=== PATIENT | male | born 1955 | race Caucasian/White ===

== ENCOUNTER 2016-11-19 13:21 | Emergency (ER) | payer OTHER ==
--- NOTE | ~2016-11-19 | ER ---
PATIENT'S NAME: [facility] AGE: 61 Y [address] ROOM: [place] [address] LOCATION: [facility] ADMIT DATE: 11/19/2016 ER/Outpatient Report DISCHARGE DATE: 11/19/2016 FAMILY PHYSICIAN: Hardeep Ohara MD ATTENDING PHYSICIAN: Marciano Sampson TIME OF ARRIVAL: 1321 hours. TIME OF EVALUATION: 1322 hours. CHIEF COMPLAINT: Chest tightness. HISTORY OF PRESENT ILLNESS: The patient is a 61-year-old male who presents to the emergency department today with a chief complaint of chest tightness. He reports this started 2 days prior to arrival. He reports it is on and off. He denies history of similar symptoms in the past. Denies any shortness of breath. No diaphoresis. No nausea or vomiting. No weakness. Denies any current pain. It is 0/10 in severity. Denies any cough. He reports that it occurred at night. Denies any fevers or chills. Does have some constipation with last bowel movement this morning. Denies any diarrhea. The patient has recently been under quite a bit of stress, he has been undergoing radiation, and has had a brain tumor removed recently. PAST MEDICAL HISTORY: Brain tumor, status post resection, chemo, and radiation, glioblastoma, osteoarthritis, rhinitis, and BPH. PAST SURGICAL HISTORY: 10/19/2016, had the right brain tumor resection. SOCIAL HISTORY: The patient denies any tobacco, alcohol, or illicit drug use. ALLERGIES: CORN, DUST. NO MEDICATION ALLERGIES. MEDICATIONS: Please see list. Sees Dr. Velazquez and Dr. Blas. PATIENT'S NAME: [facility] AGE: 61 Y [address] ROOM: [place] [address] LOCATION: ED ADMIT DATE: 11/19/2016 ER/Outpatient Report DISCHARGE DATE: 11/19/2016 FAMILY PHYSICIAN: Hardeep Ohara MD ATTENDING PHYSICIAN: Marciano Sampson REVIEW OF SYSTEMS: All systems are reviewed by myself are negative with the exception of those discussed in HPI and past medical history. PHYSICAL EXAMINATION: VITAL SIGNS: Weight 107.1 kg, blood pressure 127/67, pulse 88, respiratory rate 16, temperature 99.6, and oxygen saturation 96% on room air. GENERAL: The patient is a 61-year-old male, appears stated age, in no acute distress at this time. HEENT: Head: Normocephalic. Does have evidence of recent trauma to the right-side from craniotomy. Pupils are equal, round, and reactive to light. NECK: Supple. There is no nuchal rigidity. CARDIOVASCULAR: Regular rate and rhythm. No murmurs, rubs, or gallops. LUNGS: Clear to auscultation bilaterally. No wheezes, rales, or rhonchi. ABDOMEN: Soft, nontender, and nondistended. No rebound, rigidity, or guarding. MUSCULOSKELETAL: The patient moves all 4 extremities. A 5/5 muscle strength. SKIN: Warm, dry. There are no rashes or lesions noted. LABS AND X-RAYS: Labs and x-rays are obtained. EKG is obtained, is interpreted by myself, shows sinus rhythm with a rate of 83, normal axis, normal interval. No ST- elevation, ST-depression, or T-wave inversions. Two-view chest x-ray is obtained shows no acute process. CBC is normal except for white blood cell count 12.3. CMP is unremarkable. Calcium is 8.4. LFTs are normal. Cardiac enzymes are normal. D-dimer is normal. PTT is normal, PT is normal, INR is normal. Mag is normal. BNP 209. Two-hour cardiac enzymes are normal. Two- hour EKG shows sinus rhythm with a rate of 77, normal axis, normal interval. No ST-elevation, ST-depression, or T-wave inversions. IMPRESSION: 1. Chest pain, unclear etiology. 2. Glioblastoma, currently undergoing chemo and radiation. 3. Initial visit. EMERGENCY DEPARTMENT COURSE: The patient brought back to the examination room. Seen and evaluated by myself. IV is established. Laboratory analysis and imaging are obtained as described above. The patient is not given aspirin due to his recent brain surgery. He is given Tylenol 1 g p.o. Laboratory analysis and imaging are obtained as described above. I did discuss the results with the patient. I did recommend 2-hour cardiac enzymes, he is agreeable, these are normal as well. The patient has been having symptoms for 2-3 days. His cardiac enzymes are normal x2. I do feel he is safe for further outpatient evaluation at this time. I have asked he follows up with Cardiology. He is to call for an PATIENT'S NAME: ELIAS MACKAY [facility] AGE: 61 Y [address] ROOM: [place], [place] [address] LOCATION: [facility] ADMIT DATE: 11/19/2016 ER/Outpatient Report DISCHARGE DATE: 11/19/2016 FAMILY PHYSICIAN: Hardeep Ohara MD ATTENDING PHYSICIAN: Marciano Sampson appointment as well as primary care doctor in 2 days. I have discussed return to care instructions including any worsening chest pain, shortness of breath, or any other concerns to return to emergency department as soon as possible. The patient is agreeable. I have discussed results with the patient's sister- in-law who is at bedside as well. She is agreeable. DISPOSITION: The patient is discharged home in good condition. DO JEREMIAS LYNN/chinyere /[id number] d: 11/19/16 2344 t: 11/20/16 0633, OUTPATIENT REPORT
[~2016-11-19 13:21] MED LIST: ALEVE220 MG PO; AMBIEN5 MG PO; ASPIRIN325 MG PO; BENADRYL 2% CREAM2 % TOP; CALCIUM 600 +1 EAC7 PO; CALCIUM-MAGNES1 EAC5 PO; COENZYME Q10200 MG PO; DECADRON4 MG PO; FLOMAX0.4 MG PO; LIPOZENE PO; MIRALAX17 GM PO; NORCO 5-325 TA1 EACH PO; PHENERGAN WITH480 ML PO; PROTONIX40 MG PO; THERAGRAN-M1 TAB PO; TYLENOL325 MG PO; VITAMIN E400 UNI2 PO; [UNRECOGNIZED DRUG - OTHER] PO
[2016-11-19 13:40] LABS: BASOPHIL % 0.3 %; EOSINOPHIL % 0.1 %; HEMATOCRIT 44.4 % (37.0-53.0); HEMOGLOBIN 14.8 g/dL (12.0-17.0); IMMATURE GRANULOCYTE # 0.4 K/uL (0.0-0.3); IMMATURE GRANULOCYTE % 3.3 %; LYMPHOCYTE % 8.2 %; MCH 30.3 pg (27.0-34.0); MCHC 33.3 gm/dL (32.0-36.5); MCV 90.8 fl (83.0-98.0); MONOCYTE # 0.8 K/uL (0.0-1.0); MONOCYTE % 6.4 %; MPV 8.8 fl (9.4-12.4); NEUTROPHIL % 81.7 %; NRBC % 0.2 /100WBC (0-0.00); PLATELET COUNT 256 K/uL (150-450); RBC 4.89 M/uL (4.00-6.00); RDW-CV 13.4 % (11.9-14.6); WBC 12.3 K/uL (4.0-11.0)
[2016-11-19 13:58] LABS: INR - (THERAPEUTIC) 0.9 (0.9-1.1); PROTIME 9.7 SECONDS (9.6-11.1); PTT 22 SECONDS (25-32)
[2016-11-19 14:01] LABS: ALK PHOS 91 IU/L (33-138); ALT 72 IU/L (12-78); BLOOD UREA NITROGEN 21 mg/dL (6-24); CALCIUM 8.4 mg/dL (8.5-10.5); CHLORIDE 103 mMol/L (96-110); CO2 22 mMol/L (22-32); CPK 59 IU/L (35-332); CREATININE 1.1 mg/dL (0.6-1.3); ESTIMATED GFR (MDRD EQUATION) > 60; SODIUM 138 mMol/L (135-145); TOTAL PROTEIN 6.1 g/dL (6.0-8.4)
[2016-11-19 14:02] LABS: ANION GAP 17.1 (10.0-19.0); AST 22 IU/L (10-40); MAGNESIUM 2.1 mg/dL (1.3-2.6); POTASSIUM 4.1 mMol/L (3.7-5.1); TOTAL BILIRUBIN 0.4 mg/dL (0.0-1.5)
[2016-11-19 16:00] LABS: CPK 45 IU/L (35-332)
== END 2016-11-19 16:25 | disposition disaster alternative care site (69) ==
LOC: GMED 13:21
PROVIDERS: Emergency Medicine
DX: R07.9 Chest pain, unspecified (principal); C71.9 Malignant neoplasm of brain, unspecified; M19.90 Unspecified osteoarthritis, unspecified site; N40.0 Benign prostatic hyperplasia without lower urinary tract symptoms; Z98.890 Other specified postprocedural states; Z91.018 Allergy to other foods; Z91.048 Other nonmedicinal substance allergy status; Z79.899 Other long term (current) drug therapy

== ENCOUNTER → 2016-12-21 | Outpatient (CLI) | payer OTHER ==
[~2016-12-21] MED LIST changes: +ALDACTONE25 MG PO; +NOVOLOG FL100 UNIT/1 SUB-Q; +SENOKOT8.6 MG PO; +TEMODAR PO; +TEMODAR140 MG PO
== END | disposition disaster alternative care site (69) ==
LOC: GDIC 15:14
DX: E11.8 Type 2 diabetes mellitus with unspecified complications (principal)
CPT/HCPCS: G0108

== ENCOUNTER 2016-12-26 12:32 | Inpatient (IN) | payer OTHER ==
[~2016-12-26] VITALS: Ht 172.7 cm; Wt 104.4 kg
--- NOTE | ~2016-12-26 | COMP ---
PATIENT'S NAME: ELIAS MACKAY [facility] AGE: 61 Y [address] ROOM: [place] [address] LOCATION: [facility] ADMIT DATE: 12/26/2016 Oncology Report DISCHARGE DATE: FAMILY PHYSICIAN: Hadreep Ohara MD ATTENDING PHYSICIAN: Pierce Liriano V RADIATION THERAPY SUMMARY DATE OF SERVICE: REFERRING PHYSICIAN: Sanam Velazquez MD DIAGNOSIS: Glioblastoma of the right frontal lobe. Dear Doctor: Mr. Elias Mackay recently finished radiotherapy in our facility. As you recall, this is a 61-year-old white male with a diagnosis of a glioblastoma in the area of the right frontal lobe region. The patient was treated with concomitant chemo radiotherapy. Received Temodar and external beam radiotherapy. He was treated to a dose of 6000 cGy and finished his therapy on 12/21/2016. When seen during the last week of treatment on 12/18, he was doing reasonably well. He was somewhat slow to answer questions and did not move as quickly as he normally did. He was accompanied by his [id number]. He was on a tapering dose of Decadron at that point. PHYSICAL EXAMINATION: VITAL SIGNS: From 12/18 included temperature of 97.4, pulse of 90, a blood pressure of 124/84, and a weight of 106.4 kilos. GENERAL: A well-developed well-nourished, white male. HEAD AND NECK: The patient had a well-healed surgical scar in the right frontal area. An elliptical manner tumor was noted. There was some mild fluctuance noted in this area. The scalp was darkened. No areas of breakdown were noted. Hair loss was noted in the area of the treatment field. HEENT: The oral cavity did not have any mycotic lesions. Tongue protruded midline. EXTREMITIES: The patient did have significant bilateral ankle swelling noted. NEUROLOGIC: The patient had a slow gait which was wide-based. His mental status appeared to be somewhat slowed. He was able to answer questions appropriately. PATIENT'S NAME: ELIAS MACKAY [facility] AGE: 61 Y [address] ROOM: [place] [address] LOCATION: [facility] ADMIT DATE: 12/26/2016 Oncology Report DISCHARGE DATE: FAMILY PHYSICIAN: Hardeep Ohara MD ATTENDING PHYSICIAN: Pierce Liriano V SUMMARY OF THERAPY: The patient was treated to the area of a partial brain field with appropriate margins for a dose of 4600 cGy in 200 cGy fractions using 6 mV photons with the VMAT IMRT technique. The patient treated between 11/12/2016 and 12/12/2016 for 23 fractions over 30 elapsed treatment days. Thereafter, had a cone-down to the area of the primary tumor for an additional 1400 cGy in 200 cGy fractions, given in 7 fractions over 8 elapsed treatment days between 12/13/2016 and 12/21/2016. The patient's total dose to the affected area was 6000 cGy given in 30 fractions over 39 elapsed treatment days between 11/12/2016 and 12/21/2016. The patient while under treatment also received concomitant Temodar chemotherapy. IMPRESSION AND PLAN: The patient tolerated treatment well. He is on his tapering dose for his dexamethasone. He will be scheduled for routine followup in one months' time. He was told to contact us should he have any problems in the interim. We thank you for allowing us to participate in his care. Sincerely, MARIE MORENO MD, PHD PATRICIA/chinyere /[id number] CC: DO Sanam Nicole MD Nicholas J Hartl, MD d: 12/31/16 0331 t: 01/08/17 1112, THERAPY SUMMARY
--- NOTE | ~2016-12-26 | CON ---
PATIENT'S NAME: ELIAS MACKAY [facility] AGE: 61 Y [address] ROOM: [place] [address] LOCATION: [facility] ADMIT DATE: 12/26/2016 Consultation DISCHARGE DATE: FAMILY PHYSICIAN: Hardeep Ohara MD ATTENDING PHYSICIAN: JAMARCUS MAJOR V DATE OF CONSULTATION: 12/26/2016 REFERRING PHYSICIAN: Sanam Velazquez MD REASON FOR EVALUATION: Possible brain abscess. Note: The patient is not a good historian at this time. History is obtained via chart review and speaking to companions. CHIEF COMPLAINT: Patient became weak. HISTORY OF PRESENT ILLNESS: Mr. Mackay was recently diagnosed with glioblastoma. He had personality changes, weakness, some headaches, and lack of balance. Imaging showed likely malignancy. He underwent resection. Pathology was consistent with glioblastoma. The area healed up well. He was treated with chemoradiation, which just very recently ended. He is still on the steroids from the radiation. Unfortunately, in the past week, he has gone downhill. Prior to this, he was up and about, good energy, etc. Since the past week, he has had increasing sleepiness. He has also had increasing weakness to the point that today he could not walk. Came to the hospital. Imaging showed increased swelling in the brain. I am asked to evaluate. He is not having any clear fevers, although he does have some sweats. These are apparently increasing in frequency. Not all that long ago, he was on cephalexin (I am not quite sure why) and fluconazole for thrush. I am not certain what chemotherapy he received, but he did not require any Neupogen or Neulasta per gym manager reports. He is about to go for MRI. PAST MEDICAL HISTORY: Significant for the brain tumor issues. SOCIAL HISTORY: [place]. Negative for tobacco use. No drug use. FAMILY HISTORY: No unusual infections or immune disorders. REVIEW OF SYSTEMS: PATIENT'S NAME: ELIAS MACKAY [facility] AGE: 61 Y [address] ROOM: [place] [address] LOCATION: [facility] ADMIT DATE: 12/26/2016 Consultation DISCHARGE DATE: FAMILY PHYSICIAN: Hardeep Ohara MD ATTENDING PHYSICIAN: JAMARCUS MAJOR V The patient cannot participate very well with a good review of systems at this time. PHYSICAL EXAMINATION: GENERAL: The patient is sleepy, lying in bed, appears nontoxic, but again he is quite sleepy. HEENT: The patient is anicteric. No conjunctival lesions noted. Ears, Nose, Throat: He has no thrush. CARDIOVASCULAR: Heart is regular rate and rhythm. RESPIRATORY: Breathing is easy and unlabored. LUNGS: Clear bilaterally. GASTROINTESTINAL: Abdomen is soft, normoactive bowel sounds are present, nontender. GENITOURINARY: No suprapubic tenderness. NEUROLOGIC: The patient is awake, he is alert, he is often slow to answer questions, but when he does answer, answers do seem appropriate and he is able to joke with me. LYMPHATIC: No cervical lymphadenopathy. MUSCULOSKELETAL: He does have overall weakness. No effusions of fingers, wrists, elbows, shoulders, and knees. INTEGUMENTARY: No obvious rash. Surgery site is well healed. LABORATORY STUDIES: Reviewed in the electronic medical record. RADIOLOGY: CT scan is reviewed. ASSESSMENT AND RECOMMENDATIONS: Possible brain abscess. His story is not really consistent with a brain abscess. His external operative site looks fine. He does not have a leukocytosis. His procalcitonin is okay. He is not having any clear fevers, although the steroids may be influencing this. It would be a little bit unusual for him to present 2 months after surgery with a brain abscess that had not presented before now given chemotherapy, radiation, and steroids. I would therefore lean toward noninfectious causes. I will await his MRI imaging and further workup. If this is infection, he will require drainage cultures, etc. I will hold antibiotics for now, so these are not contaminated should he undergo a procedure. Thank you for allowing me to participate in the care of Mr. Mackay. PATIENT'S NAME: ELIAS MACKAY [facility] AGE: 61 Y [address] ROOM: [address] [address] LOCATION: [facility] ADMIT DATE: 12/26/2016 Consultation DISCHARGE DATE: FAMILY PHYSICIAN: Hardeep Ohara MD ATTENDING PHYSICIAN: JAMARCUS MAJOR MD DSQ/modl /[id number] d: 12/27/16 0015 t: 12/27/16 0805, CONSULTATION REPORT
--- NOTE | ~2016-12-26 | ER ---
PATIENT'S NAME: [facility]ON [facility] AGE: 61 Y [address] ROOM: [address] [address] LOCATION: [facility] ADMIT DATE: 12/26/2016 ER/Outpatient Report DISCHARGE DATE: FAMILY PHYSICIAN: Hardeep Ohara MD ATTENDING PHYSICIAN: JAMARCUS MAJOR V Time of Arrival: 1240 hours. Time of Exam: 1240 hours. CHIEF COMPLAINT: Decreased mobility. HISTORY OF PRESENT ILLNESS: The patient states that he has been unable to stand or walk today. His girlfriend came with him and she states that he had been on dexamethasone and they tried to lower the dose of it to 2 mg versus 4, and after being on 2 mg for about 5 days, his symptoms worsened. He was up walking and doing fine when the dexamethasone was on 4 mg but now he is weak in the lower extremities, weakness of the left arm. He does have glioblastoma of the brain, was diagnosed in September of 2016. He did have a resection done and had chemotherapy and radiation, last radiation was on last Saturday. He does see Dr. Lopez. Dr. Velazquez did his surgery. ALLERGIES: CORN DUST. NO KNOWN DRUG ALLERGIES. CURRENT MEDICATIONS: On his chart and were reviewed by me. PAST MEDICAL HISTORY: Steroid-induced insulin-dependent diabetes, glioblastoma, benign prostatic hypertrophy. PAST SURGERIES: Include removal of the brain tumor on 10/19/2016. SOCIAL HISTORY: He lives at home with his girlfriend. Denies use of tobacco, drugs, or alcohol. REVIEW OF SYSTEMS: All negative other than those mentioned in the HPI. PHYSICAL EXAMINATION: VITAL SIGNS: Weight 100 kilograms, blood pressure is 134/86, pulse of 80, PATIENT'S NAME: [facility]OM[facility]ON [facility] AGE: 61 Y [address] ROOM: [address] [place] [id number] LOCATION: [facility] ADMIT DATE: 12/26/2016 ER/Outpatient Report DISCHARGE DATE: FAMILY PHYSICIAN: Hardeep Ohara MD ATTENDING PHYSICIAN: JAMARCUS MAJOR V respirations 16, temperature of 97.2, O2 saturation is 95% on room air. GENERAL: He was brought in by private auto. We did go out to help bring him in. He was able to stand with assist of two and pivoted on to the cart. He is awake, answers questions appropriately. SKIN: [place], warm, and dry. LUNGS: Respirations are even and nonlabored. Lung sounds are clear throughout. HEART: Regular rate and rhythm. ABDOMEN: Round, soft. Bowel sounds are present. EXTREMITIES: He has decreased movement of his lower extremities. Does not have active range of motion of the left arm. Does have some pedal edema. EMERGENCY DEPARTMENT COURSE: Saline lock was initiated with normal saline started at 100 mL/h. LABORATORY DATA AND X-RAYS: Lab work was drawn. CBC is within normal limits. His white count was 10.6, hemoglobin is 14.3, hematocrit is 40.8, platelets are 230. Chem panel; sodium is 139, potassium is 4, chloride of 108, his CO2 was 19. Accu-Chek blood sugar was 286. Chem panel blood glucose shows 301. BUN is 25 with a creatinine of 0.8. Procalcitonin was normal. ProBNP was 84. Venous ABG showed pH of 7.49, pCO2 of 27 with HCO3 of 20.6. Clean-catch UA was obtained; does show glucose, negative for ketones. EKG was completed, it shows a sinus rhythm. CT of the head was completed. Radiologist reports that there is increased edema at the site of the surgery. Dr. Lopez was contacted. He reports he had already talked with Dr. Manuel about the patient. Dr. Hammond was here in the ER and report was given. The patient to be placed in observation for weakness. IMPRESSION: Weakness, hyperglycemia due to steroids. History of glioblastoma. PLAN: The patient will be placed in observation. Followed by the hospitalist. Dr. Manuel was going to contact Infectious Disease providers and Dr. Velazquez regarding the patient. The patient and his girlfriend verbalized understanding. MICHAEL BRADFORD APRN FOR MD WALDO HARTMAN/chinyere PATIENT'S NAME: ELIAS MACKAY [facility] AGE: 61 Y [address] ROOM: [address] [address] LOCATION: [facility] ADMIT DATE: 12/26/2016 ER/Outpatient Report DISCHARGE DATE: FAMILY PHYSICIAN: Hardeep Ohara MD ATTENDING PHYSICIAN: JAMARCUS MAJOR V /[id number] d: 12/27/169 t: 01/04/17 194, OUTPATIENT REPORT
--- NOTE | ~2016-12-26 | CON ---
PATIENT'S NAME: ELIAS MACKAY [facility] AGE: 61 Y [address] ROOM: [place] [address] LOCATION: [facility] ADMIT DATE: 12/26/2016 Consultation DISCHARGE DATE: FAMILY PHYSICIAN: Hardeep Ohara MD ATTENDING PHYSICIAN: JAMARCUS MAJOR V REFERRING PHYSICIAN: Sanam Velazquez MD A consult for FADIA Ronquillo. This 61-year-old gentleman, whom I know from previous care, is now referred again for rehab evaluation. Admitted on 12/26/2016 status post right frontal brain abscess which was reopened and drained, frontal craniotomy, evacuation of cyst on 12/28/2016, details on record. He was on rehab unit from 10/24/2016 until 10/30/2016 and did well status post right craniotomy and right-sided frontal brain lesion grade 4 glioblastoma which was done on 10/19/2016. He recently reported he was falling repeatedly and was not able to concentrate well. He was investigated, did undergo craniotomy as stated above, and is doing at the present time well. Alert, oriented, able to know me right away, and he can talk without difficulty. He is feeling weaker on the left side, left upper extremity more involved. PAST HISTORY OF SIGNIFICANCE: 1. Possible diabetes. 2. Benign prostatic hypertrophy. 3. Gastroesophageal reflux disease. 4. Slightly obese. 5. Osteoarthrosis. He feels much better today, and he is able to follow instructions without much difficulty. Alert, oriented. A little bit slow, but proper. He can comprehend, express. Voice is clear and not wet. He has no facial droop and/or weakness. Tongue and soft palate are moving symmetrical. Voice is not wet. MEDICATIONS: He is, at the present time, on the following medications: 1. Decadron. 2. Vancomycin hydrochloride. 3. Normal saline. 4. Rocephin. PATIENT'S NAME: ELIAS MACKAY [facility] AGE: 61 Y [address] ROOM: [place] [address] LOCATION: [facility] ADMIT DATE: 12/26/2016 Consultation DISCHARGE DATE: FAMILY PHYSICIAN: Hardeep Ohara MD ATTENDING PHYSICIAN: JAMARCUS MAJOR V 5. Morphine sulfate. 6. [place]. 7. Insulin Detemir. 8. Senna. 9. Multivitamin. 10. Protonix. 11. Glucagon. 12. Glucose. 13. Dextrose. 14. Ambien. 15. Benadryl. 16. Insulin aspart aggressive. 17. Flomax. 18. Hydromorphone. 19. Fentanyl. 20. Mannitol. 21. Tylenol. 22. Cefazolin. ASSESSMENT AND PLAN: At the present time, we will put him on PT, OT, and speech. Please see the orders. I feel that this gentleman will benefit from intensive rehabilitation of about 2 weeks. I will take him when he is steady provided he is qualified and can tolerate intensive rehab. Thank you for this referral. I will be following alongside with you. All the above was explained to him. He verbalized understanding and agreement. MD ELMA GONZALEZ/modl /[id number] d: 12/29/16 1355 t: 12/30/16 1006, CONSULTATION REPORT
--- NOTE | ~2016-12-26 | CON ---
PATIENT'S NAME: ELIAS MACKAY [facility] AGE: 61 Y [address] ROOM: [place] [address] LOCATION: [facility] ADMIT DATE: 12/26/2016 Consultation DISCHARGE DATE: FAMILY PHYSICIAN: Hardeep Ohara MD ATTENDING PHYSICIAN: JAMARCUS MAJOR V DATE OF CONSULTATION: 01/01/2017 REFERRING PHYSICIAN: Sanam Velazquez MD INITIAL PSYCHIATRIC EVALUATION/CONSULTATION: DATA: The patient was seen today on a one-to-one. He is a 61-year-old male, currently admitted to [facility]. CHIEF COMPLAINT: Depression, possible confusion. CONSULTATION REQUESTED BY: Dr. Velazquez. DIAGNOSES: At the time of the evaluation are: 1. Adjustment disorder with depression. 2. Nocturnal hypoxemia (possible), rule out delirium. RECOMMENDATIONS: At the present time, after talking about risks and benefits, the patient consented for a trial on Remeron at night. We also need to have a trend oximetry to rule out nocturnal hypoxemia considering the girth of the abdomen and also the fact that the patient is known to be a heavy snorer and the potential correlation of that with any confusion, present or past. For the time being, I am choosing not to put the patient on antipsychotic until we see first the nocturnal hypoxemia and I have ascertained or not there are periods of confusion that at the present time seem to be questionable. HISTORY OF PRESENT ILLNESS: The patient actually ended up in the hospital with glioblastoma that was removed, and then the patient has been seeing a different change and struggling with facing his new life, so a psychiatric consultation was requested. I came to [facility] and reviewed the electronic records, the paper records, talked to the nurse for collateral information, got the patient on a pfnr-mr-auum, and also with the patient's [id number]-kxx with the patient's permission. The patient actually is a marginally good historian who admits that he is struggling, somewhat depressed right now, and PATIENT'S NAME: ELIAS MACKAY [facility] AGE: 61 Y [address] ROOM: [place] [address] LOCATION: [facility] ADMIT DATE: 12/26/2016 Consultation DISCHARGE DATE: FAMILY PHYSICIAN: Hardeep Ohara MD ATTENDING PHYSICIAN: JAMARCUS MAJOR V anxious about his condition, but no psychosis. No pollo or hypomania. No issues with obsession and compulsion, eating disorder, post-traumatization, or gambling. The patient is fully oriented at the present time, but there were some of his comments that at one point many wonder if he understands his whole condition, but he gave me the answers just slower than expected. Wbfbkq-vv-xuo tends to think that he has been somewhat confused, but that the nurses are not giving me the same impression. SUBSTANCE USE HISTORY: Noncontributory. Not a heavy drinker, smoker, or a drug user. PAST PSYCHIATRIC HISTORY: Never hospitalized in a psychiatric facility. Never suicidal before. Never on psychotropic medications for depression or anxiety. MEDICAL HISTORY: Per H and P with Dr. Major. 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 No legal problems. No history of being in the . HISTORY OF ABUSE: Noncontributory. FAMILY HISTORY: Noncontributory. MENTAL STATUS EXAMINATION: A gentleman. Cooperative. Good hygiene. Good eye contact. No psychomotor agitation or retardation. Speech is normal in volume and tone, but slow in production. Mood is depressed. Affect is restricted, appropriate to thought content. Thought content is relevant. The patient is denying suicidal or homicidal ideation. Denying auditory or visual hallucinations. No delusional thoughts. Thought process coherent, congruent. No loosening of association. Insight and judgment seem to be fair. Memory at the present time seems to be within normal limits. He is alert and oriented, just coming slow with the answers. Intelligence is average. STRENGTHS: Access to service. BARRIERS: Physical health. PATIENT'S NAME: ELIAS MACKAY [facility] AGE: 61 Y [address] ROOM: [place] [address] LOCATION: [facility] ADMIT DATE: 12/26/2016 Consultation DISCHARGE DATE: FAMILY PHYSICIAN: Hardeep Ohara MD ATTENDING PHYSICIAN: JAMARCUS MAJOR V RACHEL NIELSEN MD HG/modl /[id number] d: 01/01/17 1233 t: 01/02/17 1009, CONSULTATION REPORT
--- NOTE | ~2016-12-26 | CON ---
PATIENT'S NAME: ELIAS MACKAY [facility] AGE: 61 Y [address] ROOM: [place] [address] LOCATION: [facility] ADMIT DATE: 12/26/2016 Consultation DISCHARGE DATE: FAMILY PHYSICIAN: Hardeep Ohara MD ATTENDING PHYSICIAN: JAMARCUS MAJOR V DATE OF CONSULTATION: 12/26/2016 REFERRING PHYSICIAN: Sanam Velazquez MD CONSULT REQUESTED BY: Hospitalist Service. REASON FOR CONSULTATION: Left-sided weakness. PATIENT IDENTIFICATION: Elias Mackay is a 61-year-old male. PRESENTING COMPLAINT: Left-sided weakness and decreased level of consciousness. HISTORY OF PRESENT ILLNESS: The patient was seen in the emergency room at [facility] with complaints of decreased mobility. His history is significant for right frontal glioblastoma diagnosed in September of 2016 for which he had surgery. He did well after the surgery and after some time in rehab was released home. He has since started on chemotherapy and radiation therapy. In the last several days, the patient has been gradually losing strength and was ultimately brought to the emergency room by the girlfriend on December 26, 2016. Imaging studies showed a large fluid collection in the tumor cavity where the glioblastoma was resected. Differential diagnosis included postoperative reactive changes or radiation changes and less likely abscess. I was therefore consulted to see the patient. PAST MEDICAL HISTORY: Benign prostatic hypertrophy, osteoarthritis, allergic rhinitis, and obesity. CURRENT MEDICATIONS: 1. NovoLog insulin. 2. Zolpidem. 3. Pantoprazole. 4. Dexamethasone. 5. Ondansetron. PATIENT'S NAME: ELIAS MACKAY [facility] AGE: 61 Y [address] ROOM: [place] [address] LOCATION: [facility] ADMIT DATE: 12/26/2016 Consultation DISCHARGE DATE: FAMILY PHYSICIAN: Hardeep Ohara MD ATTENDING PHYSICIAN: JAMARCUS MAJOR V ALLERGIES: CORN DUST. FAMILY HISTORY: There is no family history relevant to present symptoms. SOCIAL HISTORY: The patient is a king rancher. He does not smoke or drink heavily. REVIEW OF SYSTEMS: A 10-point review of systems was carried out, the only abnormal findings are as described in the history of present illness. PHYSICAL EXAMINATION: GENERAL: The patient is a middle-aged gentleman who was drowsy but arousable. VITAL SIGNS: Blood pressure 134/86, pulse rate 80. NEUROLOGIC: Speech is audible, but the patient is quite drowsy. Cranial nerves, no deficits seen. Motor examination: The patient has left-sided weakness secondary to the mass in his right frontal region. Gait not tested. CARDIOVASCULAR: Heart sounds present. RESPIRATORY: The patient is not short of breath at bedside. EXTREMITIES: No cyanosis or clubbing. SKIN: No skin rashes or skin masses. HEENT: Head; there is a bump on the right side of his head. A fluid collection under the craniotomy incision. Eyes and Ears: No evidence of trauma. REVIEW OF IMAGING STUDIES: The patient has had MRI and CT scan of the brain done. Imaging studies show a fluid collection within the cavity of the tumor. Differential diagnosis includes radiation changes versus abscess versus seroma. ASSESSMENT: A 61-year-old male with weakness and decreased level of consciousness secondary to cystic mass in right frontal area. MEDICAL DECISION MAKING: The patient has been admitted to the hospital and has been started on steroids and mannitol. There is a chance he may require drainage of the fluid collection in his right frontal area, but we will try treating him nonoperatively to begin with if possible. I have explained the treatment plan to patient and family members and everybody is on board with this plan of action. PATIENT'S NAME: ELIAS MACKAY [facility] AGE: 61 Y [address] ROOM: [place] [address] LOCATION: [facility] ADMIT DATE: 12/26/2016 Consultation DISCHARGE DATE: FAMILY PHYSICIAN: Hardeep Ohara MD ATTENDING PHYSICIAN: JAMARCUS MAJOR V MD ZACHERY GLASS/chinyere /[id number] d: 12/27/16 2330 t: 01/04/17 0903, CONSULTATION REPORT
--- NOTE | ~2016-12-26 | HP ---
PATIENT'S NAME: ELIAS MACKAY [facility] AGE: 61 Y [address] ROOM: [place] [address] LOCATION: [facility] ADMIT DATE: 12/26/2016 History & Physical DISCHARGE DATE: FAMILY PHYSICIAN: Hardeep Ohara MD ATTENDING PHYSICIAN: JAMARCUS MAJOR V DATE OF SERVICE: CHIEF COMPLAINT: Increased weakness. HISTORY OF PRESENT ILLNESS: The patient is a 61-year-old male with a past medical history most significant for resection of glioblastoma multiforme in the right frontal lobe with subsequent chemotherapy and radiation, which he completed 4 days ago. The patient was brought in by his spouse at the advice of their oncologists due to increasing left-sided weakness, generalized fatigue, as well as hyperglycemia (the patient is on Decadron). A CAT scan in the OR demonstrated a large fluid-filled collection in the right frontal area, at the site of resection, which could not be further characterized. At this point, the patient has been seen by Dr. Velazquez who ordered mannitol and ordered an MRI as well (there is considerable edema around the fluid site) and by Dr. Luz of Infectious Disease who recommended to hold off on antibiotics as the patient has normal CBC and does not have any fevers or systemic complaints will be consistent with an infection. At this point, he is getting mannitol and resting comfortably on Neurotrauma Unit. He denies any chest pain, shortness of breath, nausea, vomiting, or diarrhea. REVIEW OF SYSTEMS: All 10 systems have been reviewed and are negative aside from pertinent positives mentioned in the HPI. PAST MEDICAL HISTORY: In addition to that described in the HPI, benign prostatic hyperplasia, osteoarthritis, allergic rhinitis, and obesity. SOCIAL HISTORY: The patient has no history of ongoing toxic habits. FAMILY HISTORY: PATIENT'S NAME: ELIAS MACKAY [facility] AGE: 61 Y [address] ROOM: [place] [address] LOCATION: [facility] ADMIT DATE: 12/26/2016 History & Physical DISCHARGE DATE: FAMILY PHYSICIAN: Hardeep Ohara MD ATTENDING PHYSICIAN: JAMARCUS MAJOR V Significant for hypertension in both parents. CURRENT MEDICATIONS: 1. Acetaminophen. 2. Decadron 4 mg p.o. 3 times a day. 3. Benadryl as needed. 4. Starbuck as needed. 5. Insulin sliding scale. 6. Multivitamin. 7. Pantoprazole. 8. Sennoside. 9. Spironolactone. 10. Flomax. 11. Ambien. PHYSICAL EXAMINATION: VITAL SIGNS: Blood pressure 119/80, saturating 90% on room air, respirations 24, pulse is 74, and temperature is 99.0. GENERAL: Appears as a morbidly obese, middle-aged male, in no acute distress. NEUROLOGIC: Exam is significant for profound left-sided weakness. EYES: Exam shows pupils are equal and reactive to light. LYMPHATIC: Exam shows no cervical lymphadenopathy. ENDOCRINE: Exam shows no thyromegaly. LUNGS: Clear to auscultation. HEART: Regular with no appreciable murmurs, gallops, or rubs. ABDOMEN: Soft, nontender, nondistended. : Exam shows no costovertebral angle tenderness. VASCULAR: A 2+ pedal pulses. MUSCULOSKELETAL: Exam is unremarkable. PSYCHIATRIC: Exam reveals appropriate mood, cognition, and affect. LABORATORY DATA: Studies from the ER are significant for pH 7.49, pCO2 of 27, pO2 121, and bicarb of 20.6. Electrolyte panel shows bicarb is 19, glucose 301, BUN is 25, and ALT 97. CBC unremarkable. INR 0.9. Urinalysis shows 1000 of glucose. ASSESSMENT AND PLAN: This is a 61-year-old male who will be admitted with: 1. Large fluid collection at the site of glioblastoma multiforme excision, deferred to Neurosurgery. We will obviously obtain some antibiotics at this point as recommended by Infectious Disease. 2. Increasing weakness. This is likely due to the fluid collection and local mass effect from the edema. The patient has been started on mannitol and intravenous Decadron by Neurosurgery. 3. Hyperglycemia/steroid-induced diabetes. We will have to up titrate the PATIENT'S NAME: ELIAS MACKAY [facility] AGE: 61 Y [address] ROOM: [id number] [place], [place] [address] LOCATION: [facility] ADMIT DATE: 12/26/2016 History & Physical DISCHARGE DATE: FAMILY PHYSICIAN: Hardeep Ohara MD ATTENDING PHYSICIAN: JAMARCUS MAJOR V patient's insulin regimen as he will not be getting intravenous Decadron. 4. Benign prostatic hypertrophy. Continue on Flomax. 5. Essential hypertension. We will hold off on spironolactone for the time- being. 6. Glioblastoma multiforme. We will consider getting a Hematology/Oncology consult for goals of care/prognosis. Additional management will depend on clinical course. Time dedicated to this patient's encounter is 35 minutes. MD CONSTANTIN LION/chinyere /[id number] D: 252 T: 342 HISTORY & PHYSICAL
--- NOTE | ~2016-12-26 | PUL ---
PATIENT'S NAME: ELIAS MACKAY [facility] AGE: 61 Y [address] ROOM: [address] [address] LOCATION: [facility] ADMIT DATE: 12/26/2016 Pulmonary DISCHARGE DATE: 01/02/2017 FAMILY PHYSICIAN: Hardeep Ohara MD ATTENDING PHYSICIAN: Pierce Liriano V NAME OF PROCEDURE: Overnight Pulse Oximetry DATE OF PROCEDURE: January 01 to January 02, 2017 REASON FOR EXAM: Nocturnal hypoxemia RESULTS: The test was performed on room air. The recording time was 8 hours, 1 minute, and 44 seconds, with a total valid sampling time of 8 hours, 36 seconds. The highest pulse was 117, lowest pulse was 66, with a mean pulse of 84. The highest SpO2 was 97%, lowest SpO2 was 74%, with a mean SpO2 of 93.2%. The patient spent 4 minutes, and 52 seconds with SpO2 less than 89%, representing 1% of the total sleep time. The desaturation event index was normal at 4.9. REFERRING PHYSICIAN: The patient does not have evidence of significant nocturnal hypoxia and would not qualify for supplemental oxygen as per Medicare group one criteria. MD NELSON ANGELES/mando /[id number] dtt: 01/04/17 0942 , MACK BURROUGHS dtd: 01/04/17 0742
--- NOTE | ~2016-12-26 | DS ---
PATIENT'S NAME: ELIAS MACKAY [facility] AGE: 61 Y [address] ROOM: [address] [address] LOCATION: [facility] ADMIT DATE: 12/26/2016 Discharge Summary DISCHARGE DATE: 01/02/2017 FAMILY PHYSICIAN: Hardeep Ohara MD ATTENDING PHYSICIAN: Pierce Liriano V PRINCIPAL DIAGNOSES: 1. Brain abscess. 2. Grade 4 glioblastoma. 3. Steroid induced hyperglycemia. 4. Hypertension. 5. Left-sided hemiparesis. BRIEF HOSPITAL COURSE: This is a 61-year-old male with an unfortunate history of recently diagnosed grade 4 GBM status post craniotomy and resection of mass last month who presented with increasing changes in altered mental status and was noted to have increasing fluid collection at the postsurgical site and was taken back to the OR for incision and drainage and the fluid collection was noted to be an abscess. Cultures from the abscess did grow Staph epi which were pansensitive. The patient was initially started on broad-spectrum antibiotics with vancomycin and ceftriaxone. This has been de-escalated to ceftriaxone. The patient is going to need prolonged antibiotics and at this point, we will discharge to [facility], on ceftriaxone 2 g IV b.i.d. and we will await Infectious Disease input for us in helping, management of long-term antibiotics and goal as well as followup which will be needed in this setting. The patient today during my visitation is at his baseline and is neurologically stable and unchanged. PHYSICAL EXAMINATION: GENERAL: He is awake, alert, and oriented x3. HEART: S1, S2. Regular rate and rhythm. CHEST: Clear to auscultation bilaterally. ABDOMEN: Soft, nontender, nondistended. EXTREMITIES: He has left-sided upper extremity weakness, but is able to move all other extremities. MEDICATIONS: Per MAR including at this time ceftriaxone 2 g b.i.d. IV. DISPOSITION: Transfer to [facility]. Greater than 30 minutes were spent in discharge planning and facilitating. OTONIEL PARKER MD PATIENT'S NAME: ELIAS MACKAY [facility] AGE: 61 Y [address] ROOM: [id number] [place], [place] [address] LOCATION: [facility] ADMIT DATE: 12/26/2016 Discharge Summary DISCHARGE DATE: 01/02/2017 FAMILY PHYSICIAN: Hardeep Ohara MD ATTENDING PHYSICIAN: Pierce Liriano/susannal /[id number] d: 01/03/17 0409 t: 01/21/17 1151, DISCHARGE SUMMARY
--- NOTE | ~2016-12-26 | OR ---
PATIENT'S NAME: ELIAS MACKAY [facility] AGE: 61 Y [address] ROOM: [address] [address] LOCATION: [facility] ADMIT DATE: 12/26/2016 OR/Procedure Report DISCHARGE DATE: FAMILY PHYSICIAN: Hardeep Ohara MD ATTENDING PHYSICIAN: JAMARCUS MAJOR V SURGEON: Sanam Velazquez MD KILN REPAIRER: Shivam Crooks CST. DATE OF PROCEDURE: 12/28/2016 PREOPERATIVE DIAGNOSIS: Right frontal cyst. POSTOPERATIVE DIAGNOSIS: Right frontal abscess. PROCEDURE PERFORMED: Reopening of right frontal craniotomy and evacuation of cyst/abscess. ANESTHESIA: General. ANESTHESIA PROVIDER: Joaquín Israel M.D. HISTORY: This patient is a 61-year-old gentleman who presented with left- sided weakness. His past history is significant for craniotomy and resection of a right frontal glioblastoma performed in October 2016. He had recovered from his craniotomy and was receiving chemotherapy and radiation therapy, but during the last week was noticed to be having increasing weakness on the left- side of his body. Imaging studies showed a large cystic fluid collection in the cavity of the resected tumor. There was some fluid extending to the subgaleal area as well. The patient responded transiently to mannitol, but overall his weakness was quite significant. It was therefore felt necessary to evacuate the fluid collection in order to obtain a specific diagnosis as to whether there was an abscess or radiation change and also to remove the mass effect on his brain. The procedure, benefits, and risks were discussed with the patient and his family; and with their consent, the patient was brought to the operating room for surgery. PROCEDURE IN DETAIL: In the operating room, the patient was placed in a supine position. Anesthesia was induced and he was intubated. His head was supported in a gel donut with a right-side upper most. The previous incision line was marked out. The whole area was prepped and draped in a sterile fashion. Local anesthesia was infiltrated along the incision line. The #10 blade was used to open the incision and almost immediately we encountered purulent material. Some of the material was sent off for Gram stain. The scalp was peeled back. The bone flap was removed. There was also some purulent material/granulation tissue in the epidural space. PATIENT'S NAME: ELIAS MACKAY [facility] AGE: 61 Y [address] ROOM: [facility] [place], [place] [address] LOCATION: [facility] ADMIT DATE: 12/26/2016 OR/Procedure Report DISCHARGE DATE: FAMILY PHYSICIAN: Hardeep Ohara MD ATTENDING PHYSICIAN: JAMARCUS MAJOR V The bone flap was removed. The tumor cavity was explored, more material was obtained, and again this was sent off for both histology as well as microbiology. The cyst contents were gently evacuated. There was some of the Gliadel, which had been used during the original surgery found in the cyst cavity and this was also removed. Some biopsies were taken from the cavity of the tumor. The purpose of the biopsy was to establish whether there was still any viable tumor or whether the wafers had controlled the tumor locally. The bone flap was soaked in Betadine and thoroughly cleansed. Hemostasis was achieved in the cavity. The dura was closed back. The bone flap was replaced and sutured back to the craniotomy defect. The scalp was closed in layers with appropriate suture materials. A sterile dressing was applied. The patient's anesthesia was reversed. He was extubated and taken to the recovery room to complete his recovery. I was present at and performed every aspect of this procedure assisted at some stages by operating room nurses. There were no apparent intraoperative complications. Swabs, needles, and instruments were all accounted for the end of the case. Estimated blood loss was less than 100 mL and there was no reason for blood transfusion. I expect the patient to benefit from this procedure. Infectious Disease will be contacted to assist with his postoperative care. MD MYKEL GLASSO/modl /[id number] d: 12/29/16 0146 t: 01/04/17 0905, OPERATIVE SUMMARY
[~2016-12-26 12:32] MED LIST changes: -ALDACTONE25 MG PO; -NOVOLOG FL100 UNIT/1 SUB-Q; -SENOKOT8.6 MG PO; -TEMODAR PO; -TEMODAR140 MG PO
[2016-12-26 13:05] LABS: BICARBONATE 20.6 mmol/L (18.0-23.0); LACTATE 2.9 mEq/L (0.50-1.60); PCO2 27 mmHg (35-45); PO2 121 mmHg (80-90)
[2016-12-26 13:06] LABS: HEMATOCRIT 40.8 % (37.0-53.0); HEMOGLOBIN 14.3 g/dL (12.0-17.0); MCH 30.8 pg (27.0-34.0); MCV 87.7 fl (83.0-98.0); MPV 9.1 fl (9.4-12.4); PLATELET COUNT 230 K/uL (150-450); RBC 4.65 M/uL (4.00-6.00); RDW-CV 13.9 % (11.9-14.6); WBC 10.6 K/uL (4.0-11.0)
[2016-12-26 13:19] LABS: INR - (THERAPEUTIC) 0.91 (0.92-1.07); PROTIME 9.5 SECONDS (9.8-11.4); PTT 20 SECONDS (25-32)
[2016-12-26 13:36] LABS: ALBUMIN 2.6 gm/dL (3.5-5.0); ALK PHOS 86 IU/L (33-138); ALT 97 IU/L (12-78); AST 25 IU/L (10-40); BLOOD UREA NITROGEN 25 mg/dL (6-24); CALCIUM 8.6 mg/dL (8.5-10.5); CHLORIDE 108 mMol/L (96-110); CO2 19 mMol/L (22-32); CREATININE 0.8 mg/dL (0.6-1.3); ESTIMATED GFR (MDRD EQUATION) > 60; SODIUM 139 mMol/L (135-145); TOTAL PROTEIN 5.9 g/dL (6.0-8.4)
[2016-12-26 13:37] LABS: TOTAL BILIRUBIN 0.5 mg/dL (0.0-1.5)
[2016-12-26 13:47] LABS: BILIRUBIN URINE NEGATIVE (NEGATIVE); BLOOD URINE NEGATIVE /UL (NEGATIVE); COLOR URINE YELLOW (YELLOW); GLUCOSE URINE 1000 mg/dL (NEGATIVE); KETONE URINE NEGATIVE (NEGATIVE); LEUKOCYTES URINE NEGATIVE /UL (NEGATIVE); NITRITE URINE NEGATIVE (NEGATIVE); PROTEIN URINE NEGATIVE (NEGATIVE); SPEC GRAVITY URINE 1.025 (1.003-1.035); TURBIDITY URINE CLEAR (CLEAR); UROBILINOGEN URINE NORMAL (NORMAL)
[2016-12-26 13:49] LABS: ABSOLUTE NEUTROPHIL CT (ANC) 9.4 K/uL (1.4-9.0); BANDED NEUTROPHILS % 9 %; LYMPHOCYTE # 0.5 K/uL (0.8-4.0); LYMPHOCYTE % 5 %; MONOCYTE # 0.6 K/uL (0.0-1.0); SEGMENTED NEUTROPHIL # 8.5 K/uL (1.4-9.0); SEGMENTED NEUTROPHIL % 80 %
[2016-12-26] MEDS ORDERED: SENOKOT8.6 MG PO ×2 (15:58→15:59)
[2016-12-26] MEDS ORDERED: ALDACTONE25 MG PO (16:01)
[2016-12-26] MEDS ORDERED: NOVOLOG FL100 UNIT/1 SUB-Q (16:01)
[2016-12-26] MEDS ORDERED: TEMODAR PO (16:03)
[2016-12-26] MEDS ORDERED: TEMODAR140 MG PO (16:04)
[2016-12-27 04:38] LABS: ANION GAP 13.1 (10.0-19.0); BLOOD UREA NITROGEN 19 mg/dL (6-24); CALCIUM 8.5 mg/dL (8.5-10.5); CHLORIDE 105 mMol/L (96-110); CO2 23 mMol/L (22-32); CREATININE 0.7 mg/dL (0.6-1.3); ESTIMATED GFR (MDRD EQUATION) > 60; POTASSIUM 4.1 mMol/L (3.7-5.1); SODIUM 137 mMol/L (135-145)
[2016-12-31 16:33] LABS: CREATININE 0.7 mg/dL (0.6-1.3); ESTIMATED GFR (MDRD EQUATION) > 60
== END 2017-01-02 11:20 | DRG 23 ==
LOC: GMED 12:32 → GNTU 14:37 → GICU 12-28 19:18 → GNTU 12-29 15:07
PROVIDERS: Nurse Practitioner Family; ADMIT Internal Medicine
PROC: 0W910ZZ Drainage of Cranial Cavity, Open Approach (ICD-10-PCS; principal; 2016-12-28)
PROC: 00B00ZX Excision of Brain, Open Approach, Diagnostic (ICD-10-PCS; 2016-12-28)
DX: G06.0 Intracranial abscess and granuloma (principal); G93.6 Cerebral edema; C71.9 Malignant neoplasm of brain, unspecified; G81.90 Hemiplegia, unspecified affecting unspecified side; E66.9 Obesity, unspecified; I10 Essential (primary) hypertension; J30.9 Allergic rhinitis, unspecified; N40.0 Benign prostatic hyperplasia without lower urinary tract symptoms; F32.9 Major depressive disorder, single episode, unspecified; Z68.35 Body mass index [BMI] 35.0-35.9, adult
CPT/HCPCS: C1751; J0690; J0696; J1100; J2250; J2765; J3370; J7030; J7050

== ENCOUNTER 2017-01-02 11:32 | Inpatient (IN) | payer OTHER ==
[~2017-01-02] VITALS: Ht 172.7 cm; Wt 105.8 kg
--- NOTE | ~2017-01-02 | HP ---
PATIENT'S NAME: ELIAS MACKAY [facility] AGE: 61 Y [address] ROOM: [address] [address] LOCATION: [facility] ADMIT DATE: 01/02/2017 History & Physical DISCHARGE DATE: FAMILY PHYSICIAN: Hardeep Ohara MD ATTENDING PHYSICIAN: Dionicio Bojorquez DATE OF SERVICE: HISTORY OF PRESENT ILLNESS: 1. This 61-year-old gentleman is admitted for continuous medical treatment and intensive rehabilitation to rehabilitation unit on 01/02/2017. 2. Unstable gait. 3. Dependent in activities of daily and self care. 4. Status post right craniotomy and evacuation of brain abscesses, done on 12/28/2016, leading 2 on 2 with right facial droop. 5. He was at one time, unable to communicate, markedly lethargic, and at the present time, he is alert, fairly well oriented, slow but proper. VITAL SIGNS: Vitals are as follows: Blood pressure 139/74, temperature 97.5, pulse 80, and respiratory rate 15. He is 5 feet 8 inches tall and weighs 110.1 kg. ALLERGIES: NO KNOWN DRUG ALLERGIES. CURRENT MEDICATIONS: He is on the following medications: 1. Rocephin IV 2 g in 200 mL/h. 2. Decadron 2 mg p.o. twice daily. 3. NovoLog aggressive scale per protocol. 4. Levemir 13 units subcutaneous every night at bedtime. 5. Remeron 15 mg at bedtime. 6. Theragran-M 1 tablet p.o. daily. 7. Protonix 40 mg p.o. daily. 8. Florastor 250 mg twice daily. 9. Senokot 1 tablet every day. 10. Senokot 2 tablets at bedtime. 11. Flomax 0.4 mg p.o. b.i.d. 12. Sodium chloride IV 250 mL bag 0.9% per protocol as needed. 13. Tylenol 650 q.6 hours, do not exceed acetaminophen 4 g q.24 hours. 14. Wickes 5/325, 1 to 2 tablets q.4 hours, do not exceed acetaminophen 4 g q.24 hours. 15. Mylanta 30 mL p.o. as needed. 16. Dextrose 25 mL IV for hypoglycemia p.r.n. 17. Valium 5 mg p.o. b.i.d. as needed. PATIENT'S NAME: ELIAS MACKAY [facility] AGE: 61 Y [address] ROOM: [id number] [place], [place] [address] LOCATION: [facility] ADMIT DATE: 01/02/2017 History & Physical DISCHARGE DATE: FAMILY PHYSICIAN: Hardeep Ohara MD ATTENDING PHYSICIAN: Dionicio Bojorquez 18. Benadryl cream 2% apply as directed. 19. Glucagon 1 mg subcutaneous for hypoglycemia p.r.n. 20. Glucose 16 g p.o. for hypoglycemia p.r.n. 21. Lidocaine IV as needed for IBS. 22. MOM 30 mL p.o. p.r.n. daily. 23. Morphine sulfate 2 to 4 mg IV q.4 hours as needed p.r.n. 24. MiraLAX 17 g p.o. daily p.r.n. 25. Ambien 5 mg at bedtime as needed p.r.n. LABORATORY DATA AND IMAGING STUDIES: 1. Today's vitals and on 01/03; blood pressure 123/84, temperature 97.3, pulse 81, and respiratory rate 16. 2. He is able to feed himself with arrangement and can swallow without difficulty. 3. His Accu-Chek this morning at 0646 hours was 138, ranging between 138 to 269. 4. CBC; WBC 7.5, RBC 4.03, hemoglobin 12.4, hematocrit 36.3, and platelets 167,000. 5. CMS; sodium 142, potassium 4.8, chloride 106, CO2 of 29, BUN 16, creatinine 0.6, and glucose 176. 6. UA within normal limits. 7. Prealbumin 27.0. PAST MEDICAL HISTORY: Past history of significance as follows: 1. History of recent frequent falls. 2. He had craniotomy with right-sided brain lesion done on 10/19/2016, grade 4 glioblastoma multiforme leading to weakness. At that time, he was in rehabilitation unit from 10/24/2016 and discharged on 10/30/2016. 3. History of benign prostatic hypertrophy. 4. Hypertension. 5. Diabetes, type 2. 6. Obesity. 7. Possible some depression. PLAN AND RECOMMENDATIONS: 1. We will continue at the present time on intensive PT, OT, speech 3 hours per day, 15 hours per week for about 2 weeks aiming to discharge home at [place]. 2. We will keep on Dr. Caroline madrid, hospitalist and Dr. Luz and Dr. Valiente's census. All the above was explained to him. He verbalized understanding and agreement. PATIENT'S NAME: ELIAS MACKAY [facility] AGE: 61 Y [address] ROOM: [address] [address] LOCATION: [facility] ADMIT DATE: 01/02/2017 History & Physical DISCHARGE DATE: FAMILY PHYSICIAN: Hardeep Ohara MD ATTENDING PHYSICIAN: Dionicio Bojorquez DIONICIO BOJORQUEZ MD WMS/modl /[id number] D: [id number] T: [id number] HISTORY & PHYSICAL
--- NOTE | ~2017-01-02 | DS ---
PATIENT'S NAME: ELIAS MACKAY [facility] AGE: 61 Y [address] ROOM: [address] [address] LOCATION: [facility] ADMIT DATE: 01/02/2017 Discharge Summary DISCHARGE DATE: 01/04/2017 FAMILY PHYSICIAN: Hardeep Ohara MD ATTENDING PHYSICIAN: Jose Bojorquez This 61-year-old gentleman was admitted to Rehab Unit on 01/02/2017, status post right craniotomy and evacuation of brain abscess on 12/28/2016. He was put on intensive rehabilitation, PT, OT, and speech, 3 hours per day, 15 hours per week; however, he continued to be unable to perform gradually, getting slower in his ability. Dr. Velazquez, neurosurgeon did evaluate him, and MRI was done on 12/26 and it showed right frontal tumor resection 2 months ago, complex operative cavity; however, there was an abscess that was seen on January 04 and it was decided that he needs to have surgery, which he did undergo on January [address] Velazquez, details on record. At the present time, he is on acute side. We will continue to monitor. His vitals are as follows: Blood pressure 129/71, temperature 99.7, pulse 92, and respirations 20. At the present time, we will put on hold to our PT, OT, and speech, waiting for Dr. Velazquez to re-evaluate and probably restart him on therapy, and thereafter when stable, we will take him back to rehab. JOSE BOJORQUEZ MD WMS/modl /[id number] d: 01/06/176 t: 01/07/17 0821, DISCHARGE SUMMARY
[~2017-01-02 11:32] MED LIST changes: +ALDACTONE25 MG PO; +NOVOLOG FL100 UNIT/1 SUB-Q; +SENOKOT8.6 MG PO; +TEMODAR PO; +TEMODAR140 MG PO
[2017-01-02 13:45] LABS: BILIRUBIN URINE NEGATIVE (NEGATIVE); BLOOD URINE NEGATIVE /UL (NEGATIVE); COLOR URINE YELLOW (YELLOW); GLUCOSE URINE 1000 mg/dL (NEGATIVE); KETONE URINE NEGATIVE (NEGATIVE); LEUKOCYTES URINE NEGATIVE /UL (NEGATIVE); NITRITE URINE NEGATIVE (NEGATIVE); PROTEIN URINE NEGATIVE (NEGATIVE); TURBIDITY URINE CLEAR (CLEAR); UROBILINOGEN URINE NORMAL (NORMAL)
--- NOTE | 2017-01-02 15:49 | NUR ---
Significant Event: Patient admitted to floor at 1130. Patient very drowsy today since admission. Does not keep his eyes open for very long. Significant left sided weakness. Heavy 2 assist pivot transfer. Leans left. On assessment is able to move left leg but unable to move left arm/hand or wiggle fingers. Isotoner glove to left hand. Pitting edema to bialateral lower extremities but more so on left side. PICC line to right upper arm and on IV antibiotics every 4 hours thru 01/30/17. Accuchecks with agressive sliding scale insulin. Incontinent of urine frequently but will use the urinal if caught in time. Island barrier dressing x2 to head intact with some marked shadow drainage. Significant other is at bedside and the main contact lens lathe operator. Will have other family with him when she is not here. Recently completed chemo and radation on 12/21/16. Follow up: PICC line dressing change to be done tomorrow.
--- NOTE | 2017-01-02 23:37 | NUR ---
Significant Event: Patient drowsy but awakens easily to verbal stimuli. Oriented x3. Able to lift slightly and grasp with LUE, able to lift slightly, plantar & dorsiflex LLE. Complained of right frontal headache at beginning of shift relieved with tylenol. Island barrier dressings x2 to head dry and intact with marked shadow drainage. Right arm picc running antibiotics. Incontinent of urine. Vitals stable on room air. Cooperative with cares Follow up: change PICC dressing in am
[2017-01-03 05:37] LABS: ALBUMIN 2.4 gm/dL (3.5-5.0); ALK PHOS 88 IU/L (33-138); ALT 62 IU/L (12-78); ANION GAP 11.8 (10.0-19.0); AST 22 IU/L (10-40); BLOOD UREA NITROGEN 16 mg/dL (6-24); CHLORIDE 106 mMol/L (96-110); CO2 29 mMol/L (22-32); CREATININE 0.6 mg/dL (0.6-1.3); ESTIMATED GFR (MDRD EQUATION) > 60; POTASSIUM 4.8 mMol/L (3.7-5.1); SODIUM 142 mMol/L (135-145); TOTAL BILIRUBIN 0.4 mg/dL (0.0-1.5); TOTAL PROTEIN 5.3 g/dL (6.0-8.4)
[2017-01-03 06:40] LABS: HEMATOCRIT 36.3 % (37.0-53.0); HEMOGLOBIN 12.4 g/dL (12.0-17.0); MCH 30.8 pg (27.0-34.0); MCHC 34.2 gm/dL (32.0-36.5); MCV 90.1 fl (83.0-98.0); MPV 9.3 fl (9.4-12.4); RBC 4.03 M/uL (4.00-6.00); RDW-CV 14.3 % (11.9-14.6); WBC 7.5 K/uL (4.0-11.0)
[2017-01-03 06:41] LABS: PLATELET COUNT 167 K/uL (150-450)
[2017-01-03 07:36] LABS: ABSOLUTE NEUTROPHIL CT (ANC) 5.7 K/uL (1.4-9.0); BANDED NEUTROPHIL # 0.4 K/uL (0.0-0.1); BANDED NEUTROPHILS % 5 %; LYMPHOCYTE # 1.1 K/uL (0.8-4.0); LYMPHOCYTE % 14 %; MONOCYTE # 0.5 K/uL (0.0-1.0); SEGMENTED NEUTROPHIL # 5.3 K/uL (1.4-9.0); SEGMENTED NEUTROPHIL % 71 %
--- NOTE | 2017-01-03 14:25 | NUR ---
Significant Event: Alert and oriented. Very tired this shift. 2A full lift. Tylenol given x2 this shift. Last given at 1139. Accuchecks ACHS. Last sugar was 251. 10 units of novolog given. LLE 3+ edema. RLE 2+ edema. Island barrier dressing to head x2. Showdow marked on dressing. PICC to right arm. IV antibiotics every 4 hours. Incontinent of urine. Cooperative with cares. Follow up:
--- NOTE | 2017-01-04 03:08 | NUR ---
Significant Event:Alert and oriented. Some forgetfulness. Muffled speech at times. 2 assist full lift transfer. Turn Q2H. PICC to URE, flushes and aspirates well. IV oxicillin infused Q4H. Meds whole couple at a time depending on size, applesauce may be needed. Some difficulty swallowing pills noted at HS. Incontinent of bladder, no BM this shift. Edema glove removed from left hand. Hand washed and moisturized, elevated on pillow. Mirza stockings off. Calf pumps on. Tylenol at HS for mild headache. 2 island barrier dressings to head, covering sutures. Intact with shadow drainage marked. Seen by Dr. Velazquez this evening. MRI of brain scheduled for in the morning. Bed alarm on. Call light within reach. Follow up:MRI of brain this morning for L) side weakness Post op removal of right frontal abcess.
--- NOTE | 2017-01-04 09:03 | NUR ---
D: Therapeutic Recreation Initial Assessment on the 01/04/17. I: Patient seen for 2 units being initial evaluation. Pt is known to Therapist from prior stay on [facility] 2016 R: Patient[place] Home entrance steps: 3 Driving : no Hand Dominance: Right Communication Skills Instructor strength: L) side affected Eye sight: glasses, some vision Reading ability: N/T Hearing: no problems Speech: clear, slow Cognition: impaired Comprehension: fair Following directions: yes Initiating: yes Eye contact: good Affect: flat COMMUNITY INVOLVEMENT: Appointments only LEISURE INTERESTS: watch TV (my TV, TV land) computer (games, Internet), dog -rat Patient is referred by medical staff for treatment and evaluation in the following areas: Community Skills, Functional Leisure Skills, Participation, Leisure Education/Behaviors, Family Education, Cognitive, Emotional. Information obtained: Interview, Chart Review, Family resource, Observation, other. BARRIERS TO LEISURE: Social, Financial, Physical, Lifestyle (major changes) Transportation, Leisure Skills. Patient determined to be: APPROPRIATE FOR THERAPEUTIC RECREATION ASSESSMENT. TREATMENT WILL INCLUDE: Community living skills training Functional leisure development Physical skills development Cognitive skills development Social skills development Leisure education Emotional/behavioral adaptation Family education Community resources/packet TARGET EQUIPMENT/INFORMATION: Parking Permit has but "can't find" Community Resources Energy conservation in community setting Van/Service/Taxi Scrip Adapted Leisure Equipment Stress management/Relaxation techniques Functional car transfers Leisure Education Behaviors: Attitude, Awareness, Participation. Patient functional skills level and potential: Poor, pt demonstrates Patient oriented ot TR services on Rehab unit. Pt/family provided input into goals setting and plan of care. Pt's goal is to return home. P: Target date set with personal goals established. Will continue with POC focusing on pt/family training and education. For additional information please see Nursing Data Base, PT, OT, CM, ST, initial assessments to [facility] and Interdisciplinary Assessments.
[2017-01-04 13:02] LABS: HEMATOCRIT 38.8 % (37.0-53.0); HEMOGLOBIN 13.1 g/dL (12.0-17.0); MCH 30.7 pg (27.0-34.0); MCHC 33.8 gm/dL (32.0-36.5); MCV 90.9 fl (83.0-98.0); MPV 8.9 fl (9.4-12.4); PLATELET COUNT 186 K/uL (150-450); RBC 4.27 M/uL (4.00-6.00); RDW-CV 14.6 % (11.9-14.6); WBC 9.7 K/uL (4.0-11.0)
[2017-01-04 13:11] LABS: INR - (THERAPEUTIC) 0.92 (0.92-1.07); PROTIME 9.7 SECONDS (9.8-11.4); PTT 22 SECONDS (25-32)
[2017-01-04 13:17] LABS: ALBUMIN 2.6 gm/dL (3.5-5.0); ALK PHOS 108 IU/L (33-138); ALT 72 IU/L (12-78); ANION GAP 10.9 (10.0-19.0); BLOOD UREA NITROGEN 21 mg/dL (6-24); CALCIUM 8.1 mg/dL (8.5-10.5); CHLORIDE 106 mMol/L (96-110); CO2 24 mMol/L (22-32); CREATININE 0.8 mg/dL (0.6-1.3); ESTIMATED GFR (MDRD EQUATION) > 60; SODIUM 137 mMol/L (135-145); TOTAL BILIRUBIN 0.4 mg/dL (0.0-1.5); TOTAL PROTEIN 5.9 g/dL (6.0-8.4)
[2017-01-04 13:18] LABS: AST 31 IU/L (10-40); POTASSIUM 3.9 mMol/L (3.7-5.1)
[2017-01-04 13:46] LABS: ABSOLUTE NEUTROPHIL CT (ANC) 7.8 K/uL (1.4-9.0); BANDED NEUTROPHIL # 0.1 K/uL (0.0-0.1); BANDED NEUTROPHILS % 1 %; LYMPHOCYTE # 1.1 K/uL (0.8-4.0); LYMPHOCYTE % 11 %; MONOCYTE # 0.7 K/uL (0.0-1.0); SEGMENTED NEUTROPHIL # 7.7 K/uL (1.4-9.0); SEGMENTED NEUTROPHIL % 79 %
--- NOTE | 2017-01-04 16:23 | NUR ---
Significant Event: Alert and oriented at times. Hard to arouse at lunch time. Tylenol given for pain this morning. Accuchecks ACHS. 105 and 385 this shift. 15 units given for sugar of 385. Edema bilateral lower legs. Island barrier dressings x 2 to head. Shadow drainage marked. PICC to right arm. IV antibiotics every 4 hours. Incontinent of urine. MRI done this morning. Showed increased edema. At lunch time patient was difficult to arouse. Sternal rubbed several times. Eventually opened eyes but would not answer questions. Called Dr Velazquez. Surgery scheduled for tonight around [address] a catheter. Mannitol ordered to temporarily help with fluid. Patient more alert after mannitol. NPO. Bliss placed. Patent and draining. Follow up:
--- NOTE | 2017-01-11 12:00 | NUR ---
D: Information Analyst Discharge Note I: Input from Patient/Family R: Patient to discharge On: 01/04/17 With: transport Disposition: acute care for further surgery. Resource Discussed: n/a Therapy Recommendation: n/a Equipment Recommendations: n/a Financial Resources Used: has [employer] insurance. Initial admission approved Other referrals: n/a Patient/Family education completed: n/a Patient/Family preference: in agreement Plan of Care and Goal summary: acute care P: Complete follow up within one week: will check on patient and see how he does post discharge.
== END 2017-01-04 19:20 | disposition still patient (30) | DRG 561 ==
LOC: GIRP 11:32
PROVIDERS: Neurological Surgery; ADMIT Physical Medicine & Rehabilitation
DX: Z47.89 Encounter for other orthopedic aftercare (principal); I10 Essential (primary) hypertension; F32.9 Major depressive disorder, single episode, unspecified; E66.9 Obesity, unspecified; Z91.81 History of falling; E11.9 Type 2 diabetes mellitus without complications; N40.0 Benign prostatic hyperplasia without lower urinary tract symptoms; Z68.35 Body mass index [BMI] 35.0-35.9, adult
CPT/HCPCS: J2700; J7050

== ENCOUNTER 2017-01-04 19:00 | Inpatient (IN) | payer OTHER ==
[~2017-01-04] VITALS: Ht 172.7 cm; Wt 96.5 kg
--- NOTE | ~2017-01-04 | NDGEN ---
PATIENT'S NAME: ELIAS MACKAY [facility] AGE: 61 Y [address] ROOM: [address] [address] LOCATION: [facility] ADMIT DATE: 01/04/2017 Neurodiagnostics DISCHARGE DATE: FAMILY PHYSICIAN: Hardeep Ohara MD ATTENDING PHYSICIAN: Sanam Velazquez PROCEDURE: ELECTROENCEPHALOGRAM DATE OF PROCEDURE: 01/09/2017 CLINICAL DIAGNOSIS: INDICATIONS: A 61-year-old male patient who has a glioblastoma multiforme tumor that was resected from his right frontal portion of his brain. The patient has had progressive obtundedness over the course of the last day to day and a half. FINDINGS: He was responsive to commands, but was essentially drowsy throughout the study. There was extreme amounts of technical difficulty in doing this study due to the patient moving excessively with eyes opening and clamping down that appears to be one of voluntary eye shutting. Furthermore, throughout most of the study, there were further technical difficulties in assessing the background rhythm; however, from a standpoint of when the patient does eventually falls asleep at the 10-minute yung, there was less artifact seen, and the general background rhythm was slow in the theta range of between 4 to 5 Hz with amplitudes between 25 to 50 mV. There was some interference from the EKG in the background that aligned with some occasional spikes that did seem to do a phase reversal in the right temporal lobe which may be epileptiform in nature, but no true seizures were found. Throughout the study, the background rhythm remained slow. IMPRESSION: Background rhythm slowing throughout all the leads. There was extreme amounts of technical difficulty with this study due to excessive movement of the patient, leads being pushed off at times, and clamping of the patient's eyes closed which gave an impression of increased interference pattern. The patient did fall asleep at the 10-minute yung. The general background rhythm appeared to be abnormal and a slow theta range of between 4 to at most 6 Hz. There were no clear epileptiform features seen, and no seizures recorded. PATIENT'S NAME: ELIAS MACKAY [facility] AGE: 61 Y [address] ROOM: [address] [address] LOCATION: [facility] ADMIT DATE: 01/04/2017 Neurodiagnostics DISCHARGE DATE: FAMILY PHYSICIAN: Hardeep Ohara MD ATTENDING PHYSICIAN: Sanam Velazquez MD JRM/chinyere /[id number] dtt: 01/10/17 1444 , RUBEN ROSADO dtd: 01/09/17 1803
--- NOTE | ~2017-01-04 | CON ---
PATIENT'S NAME: ELIAS MACKAY [facility] AGE: 61 Y [address] ROOM: [place] [address] LOCATION: [facility] ADMIT DATE: 01/04/2017 Consultation DISCHARGE DATE: FAMILY PHYSICIAN: Hardeep Ohara MD ATTENDING PHYSICIAN: Sanam Velazquez REFERRING PHYSICIAN: RUBEN ROSADO MD For Dr. Velazquez. HISTORY OF PRESENT ILLNESS: This is a 61-year-old gentleman referred for re-evaluation for rehab admission again. Now, he is status post right frontal brain abscess drained on 01/04/2017. He was in rehab unit from 01/02/2017 until 01/04/2017 when he was transferred to OR for right frontal abscess drain which was completed as I stated above. He is now unresponsive to painful stimulation and his eyes closed throughout the exam. Pupils are reacting to light equally. He is not responding even to pinprick stimulation. He is breathing on his own and saturating well. The patient was on rehab unit before when he had his first biopsy from 10/24/2016 until 10/30/2016, status post right frontal craniotomy and biopsy of brain lesion in between to impress grade 4 glioblastoma. He is at the present time with the following past medical history: 1. Osteoporosis. 2. Benign prostatic hypertrophy. 3. Reflux gastric disease. Now his vitals are as follows: Blood pressure 120/74, temperature 99.1, pulse 86, respirations 20. He stands 5 feet 8 inches and weighs 105.9 kg. MEDICATIONS: He is on the following medications: 1. Tylenol. 2. MiraLAX. 3. NaCl 0.9%. 4. Vancomycin Hydrochloride. 5. Pepcid. 6. Rifampin. 7. Levemir insulin. 8. Decadron. PATIENT'S NAME: ELIAS MACKAY [facility] AGE: 61 Y [address] ROOM: [place] [address] LOCATION: [facility] ADMIT DATE: 01/04/2017 Consultation DISCHARGE DATE: FAMILY PHYSICIAN: Hardeep Ohara MD ATTENDING PHYSICIAN: Sanam Velazquez 9. Senokot. 10. Multivitamin. 11. Protonix. 12. Ambien. 13. 0.9% normal saline. 14. Insulin aspart, aggressive scale. 15. Flomax. 16. Morphine sulfate. 17. MOM. 18. Glucose. 19. Benadryl. 20. Valium. 21. Dextrose. 22. Glucagon. 23. Mylanta. 24. Larned. 25. Florastor. 26. Toradol. 27. Oxacillin. ASSESSMENT AND PLAN: Now, he will continue as he has been on PT, OT, and Speech bedside therapy. I will continue to watch him for the time being. He is not a good candidate for intensive rehabilitation and I will follow alongside with you. I did explain all this to his significant other and his mother, they verbalized understanding. MD ELMA GONZALEZ/modl /[id number] d: 01/08/17 1759 t: 01/09/17 1302, CONSULTATION REPORT
--- NOTE | ~2017-01-04 | ENPV ---
Vascular Lower Extremities DVT Study Procedure Demographics Patient Name ELIAS MACKAY Date of Study 01/17/2017 Patient Number [id number] Gender Male Date of 1955 Age 61 Visit Number [id number] Height Accession Number [id number] Weight Room Number G6216 BSA BMI Referring Harsha Ventura MD Interpreting Sea Casanova MD Physician Physician Physician Ordering Physician Teller Head Washery Boss Dian Whitney [facility] Conclusions Summary Negative for DVT right lower extremity though the peroneal veins of the right calf are poorly visualized Negative for DVT left lower extremity. Poorly visualized peroneal calf vessels Procedure Type of Study: Veins:Lower Extremities DVT Study, Venous Duplex Lower Extremity Bilateral. Patient Status:Routine. Study Location:Inpatient Portable. Technical Quality:Limited visualization due to patient immobility. - Preliminary reported to:[facility]. Velocities are measured in cm/s ; Diameters are measured in cm Right Lower Extremities DVT Study Measurements Right 2D and Doppler Measurements + + + + +------+------+ + !Location !Visualized!Compressibility!Thrombosis!Signal!Reflux!Reflux ! ! ! ! ! ! ! !(sec) ! + + + + +------+------+ + !GSV Thigh !Yes !Yes !None !Phasic!No ! ! + + + + +------+------+ + !Common !Yes !Yes !None !Phasic!No ! ! !Femoral ! ! ! ! ! ! ! + + + + +------+------+ + !Prox !Yes !Yes !None !Phasic!No ! ! !Femoral ! ! ! ! ! ! ! + + + + +------+------+ + !Mid Femoral!Yes !Yes !None !Phasic!No ! ! + + + + +------+------+ + !Dist !Yes !Yes !None !Phasic!No ! ! !Femoral ! ! ! ! ! ! ! + + + + +------+------+ + !Popliteal !Yes !Yes !None !Phasic!No ! ! + + + + +------+------+ + !Gastroc !Yes !Yes !None !Phasic!No ! ! + + + + +------+------+ + !PTV !Yes !Yes !None !Phasic!No ! ! + + + + +------+------+ + !Peroneal !No ! ! ! ! ! ! + + + + +------+------+ + Left Lower Extremities DVT Study Measurements Left 2D and Doppler Measurements + + + + +------+------+ + !Location !Visualized!Compressibility!Thrombosis!Signal!Reflux!Reflux ! ! ! ! ! ! ! !(sec) ! + + + + +------+------+ + !GSV Thigh !Yes !Yes !None !Phasic!No ! ! + + + + +------+------+ + !Common !Yes !Yes !None !Phasic!No ! ! !Femoral ! ! ! ! ! ! ! + + + + +------+------+ + !Prox !Yes !Yes !None !Phasic!No ! ! !Femoral ! ! ! ! ! ! ! + + + + +------+------+ + !Mid Femoral!Yes !Yes !None !Phasic!No ! ! + + + + +------+------+ + !Dist !Yes !Yes !None !Phasic!No ! ! !Femoral ! ! ! ! ! ! ! + + + + +------+------+ + !Popliteal !Yes !Yes !None !Phasic!No ! ! + + + + +------+------+ + !Gastroc !Yes !Yes !None !Phasic!No ! ! + + + + +------+------+ + !PTV !Yes !Yes !None !Phasic!No ! ! + + + + +------+------+ + !Peroneal !No ! ! ! ! ! ! + + + + +------+------+ + Impressions Right Impression Negative for DVT right lower extremity though the peroneal veins of the right calf are poorly visualized Left Impression Negative for DVT left lower extremity. Poorly visualized peroneal calf vessels Signature dtt: ELVA CHUNG: 01/17/17 1103 Physician Self Edit
--- NOTE | ~2017-01-04 | ENPV ---
Vascular Lower Extremities DVT Study Procedure Demographics Patient Name ELIAS MACKAY Date of Study 01/24/2017 Patient Number [id number] Gender Male Date of 1955 Age 61 Visit Number [id number] Height Accession Number [id number] Weight Room Number G6203 BSA BMI Referring Mayda Casanova MD Physician Sanam Velazquez Physician Jhonatan Storey MD Physician Ordering Physician Jhonatan Storey Lead Database Developer Forensic Computer Examiner Evita Gates RVT Conclusions Summary Bilateral lower extremity sub acute DVT Left worse than right. Procedure Type of Study: Veins:Lower Extremities DVT Study, Venous Duplex Lower Extremity Bilateral. Additional Indications:immobility Appropriate Use Criteria:9 Patient Status:Routine. Study Location:Inpatient Portable. - Preliminary reported to:[facility]. Velocities are measured in cm/s ; Diameters are measured in cm Right Lower Extremities DVT Study Measurements Right 2D and Doppler Measurements + + + + +------+------+ + !Location !Visualized!Compressibility!Thrombosis!Signal!Reflux!Reflux ! ! ! ! ! ! ! !(sec) ! + + + + +------+------+ + !GSV Thigh !Yes !Yes !None ! ! ! ! + + + + +------+------+ + !Common !Yes !Yes !None ! ! ! ! !Femoral ! ! ! ! ! ! ! + + + + +------+------+ + !Prox !Yes !Yes !None ! ! ! ! !Femoral ! ! ! ! ! ! ! + + + + +------+------+ + !Mid Femoral!Yes !Yes !None ! ! ! ! + + + + +------+------+ + !Dist !Yes !Yes !None ! ! ! ! !Femoral ! ! ! ! ! ! ! + + + + +------+------+ + !Popliteal !Yes !Partial !Sub-acute ! ! ! ! + + + + +------+------+ + !Gastroc !Yes !Yes !None ! ! ! ! + + + + +------+------+ + !PTV !Yes !Yes !None ! ! ! ! + + + + +------+------+ + !Peroneal !Yes !Yes !None ! ! ! ! + + + + +------+------+ + Left Lower Extremities DVT Study Measurements Left 2D and Doppler Measurements + + + + +------+------+ + !Location !Visualized!Compressibility!Thrombosis!Signal!Reflux!Reflux ! ! ! ! ! ! ! !(sec) ! + + + + +------+------+ + !GSV Thigh !Yes !Yes !None ! ! ! ! + + + + +------+------+ + !Common !Yes !Yes !None ! ! ! ! !Femoral ! ! ! ! ! ! ! + + + + +------+------+ + !Prox !Yes !No !Sub-acute ! ! ! ! !Femoral ! ! ! ! ! ! ! + + + + +------+------+ + !Mid Femoral!Yes !No !Sub-acute ! ! ! ! + + + + +------+------+ + !Dist !Yes !No !Sub-acute ! ! ! ! !Femoral ! ! ! ! ! ! ! + + + + +------+------+ + !Popliteal !Yes !No !Sub-acute ! ! ! ! + + + + +------+------+ + !Gastroc !Yes !Yes !None ! ! ! ! + + + + +------+------+ + !PTV !Yes !Yes !None ! ! ! ! + + + + +------+------+ + !Peroneal !Yes !Yes !None ! ! ! ! + + + + +------+------+ + Signature dtt: ELVA CHUNG dtana: 01/24/17 1021 Physician Self Alyson
--- NOTE | ~2017-01-04 | OR ---
PATIENT'S NAME: ELIAS MACKAY [facility] AGE: 61 Y [address] ROOM: [address] [address] LOCATION: [facility] ADMIT DATE: 01/04/2017 OR/Procedure Report DISCHARGE DATE: FAMILY PHYSICIAN: Hardeep Ohara MD ATTENDING PHYSICIAN: Sanam Gaona SURGEON: Sanam Gaona MD [employer] FIELD TECHNICIAN: Yesenia Lobo. DATE OF PROCEDURE: 01/04/2017 PREOPERATIVE DIAGNOSIS: Right frontal brain cyst. POSTOPERATIVE DIAGNOSIS: Right frontal brain cyst. PROCEDURE PERFORMED: José Miguel hole drainage of right frontal brain cyst. ANESTHESIA: General. HISTORY: This patient is a 61-year-old male with intracranial abscess. The patient had craniotomy for removal of glioblastoma 2 months ago. He came back with swelling at the site of the surgery, and imaging studies showed intracranial infection. The patient underwent drainage of the infection, but the fluid reaccumulated in the sites of the abscess drainage. It was producing mass effect. It was necessary to take the patient back to the operating room to repeat drainage of the cavity. This time, a josé miguel hole was chosen to avoid having to reopen the entire incision. PROCEDURE IN DETAIL: The patient was brought to the operating room after informed consent was obtained. His head was placed on a gel donut. The hair was clipped around his old incision site. The whole area was prepped and draped in a sterile fashion. The incision line was marked out for a josé miguel hole. The scalp was opened. The josé miguel hole was made. The dura was opened. The fluid came out and cultures were taken. This was serosanguineous fluid. It did not appear purulent like the original abscess that the patient had. A catheter was left in the cyst cavity. The catheter was tunneled under the skin and brought out through a separate stab wound. The josé miguel hole incision was then closed. A sterile dressing was applied. The patient's anesthesia was reversed. He was extubated and taken back to the intensive care unit to continue his recovery. I was present and performed every aspect of this procedure, assisted at some stages by the operating room nurses. There were no apparent intraoperative complications. Swabs, needles, and instruments were all accounted for at the end of the case. Estimated blood loss was less than 10 mL and there was no reason for blood transfusion. Hopefully, the PATIENT'S NAME: ELIAS MACKAY [facility] AGE: 61 Y [address] ROOM: [place] [address] LOCATION: [facility] ADMIT DATE: 01/04/2017 OR/Procedure Report DISCHARGE DATE: FAMILY PHYSICIAN: Hardeep Ohara MD ATTENDING PHYSICIAN: Sanam Gaona procedure will help the patient. SANAM GAONA MD CNO/modl /[id number] d: 01/08/17 2349 t: 01/09/17 2151, OPERATIVE SUMMARY
--- NOTE | ~2017-01-04 | OR ---
PATIENT'S NAME: ELIAS MACKAY [facility] AGE: 61 Y [address] ROOM: [place] [address] LOCATION: GICU ADMIT DATE: 01/04/2017 OR/Procedure Report DISCHARGE DATE: FAMILY PHYSICIAN: Hardeep Ohara MD ATTENDING PHYSICIAN: Sanam Velazquez SURGEON: Edilberto Osei MD LIMOUSINE AND HEARSE UPHOLSTERER: DATE OF PROCEDURE: 01/25/2017 PREOPERATIVE DIAGNOSIS: Deep venous thrombosis, unable to anticoagulate. POSTOPERATIVE DIAGNOSIS: Deep venous thrombosis, unable to anticoagulate. PROCEDURE: IVC filter placement. SEISMIC OBSERVER: Pancho Mcclelland MD. ANESTHESIA: MAC local. ESTIMATED BLOOD LOSS: 15 mL. OPERATIVE FINDINGS: Filter in good position without any inhibition of flow. DESCRIPTION OF PROCEDURE: The patient was brought to the [facility], placed supine on tutorial laboratory supervisor table, prepped and draped in a sterile manner. Preoperative time-out was performed. The patient received preoperative antibiotics. We gained access to the groin using ultrasound guidance using an 18-gauge needle to the common femoral vein. We advanced a Sagacity Mediason wire, removed the needle, then used a 10-St Helenian dilator sheath. We brought the deployment sheath in along with the inner cannula. The inner cannula was removed. We performed a venogram identifying the location of the renal vessels at L1-L2 interspace. We then deployed the filter in this space and removed the deployment mechanism. We performed a completion of venogram, which showed the filter to be in good upright position with normal flow. Sheath was removed. Pressure was held for 10 minutes. The patient tolerated the procedure well and was transferred back to the ICU. EDILBERTO OSEI MD FKM/modl PATIENT'S NAME: ELIAS MACKAY [facility] AGE: 61 Y [address] ROOM: [place] [address] LOCATION: GICU ADMIT DATE: 01/04/2017 OR/Procedure Report DISCHARGE DATE: FAMILY PHYSICIAN: Hardeep Ohara MD ATTENDING PHYSICIAN: Sanam Velazquez /[id number] d: 01/25/172151 t: 01/28/17 1200, OPERATIVE SUMMARY
--- NOTE | ~2017-01-04 | DS ---
PATIENT'S NAME: ELIAS MACKAY [facility] AGE: 61 Y [address] ROOM: [address] [place], [place] [address] LOCATION: [facility] ADMIT DATE: 01/04/2017 Discharge Summary DISCHARGE DATE: 02/01/2017 FAMILY PHYSICIAN: Hardeep Ohara MD ATTENDING PHYSICIAN: Julia Dennis Transferred to [facility] on February 01, 2017. REASON FOR ADMISSION: The patient is a 61-year-old gentleman who had undergone right frontal craniotomy and resection of glioblastoma earlier this year. The patient did well after the craniotomy; however, he developed a brain abscess requiring readmission to the hospital. The abscess was drained and the patient was transferred to inpatient rehab. While on rehab, he developed a recurrence of the abscess. He was therefore readmitted to the acute floor on January 04, 2017 in order to undergo repeat drainage of the abscess. At the time of readmission to the acute service from rehab, the patient had left-sided weakness especially in his left arm. He was, however, able to ambulate with physical therapy for about 5 feet. He was able to follow commands. He had some food. TREATMENT RENDERED: The patient was taken to the operating room, and he underwent bur hole drainage of the right frontal brain cyst. A catheter was also left in the cyst cavity that way if any recurrence happened, the fluid will be drained through the catheter. The procedure went well and the patient was kept on the regular floor after the surgery. He did have yet again a recurrence of the right frontal cyst together with hydrocephalus. A ventriculostomy was placed to monitor his intracranial pressure on the opposite side of the brain. Despite this, the cyst continued to grow and the patient was taken back to the operating room a 3rd time on January 23, 2017. On this occasion, he had a reopening of the craniotomy and placement of a drain in the abscess cavity. All this resulted in a prolonged stay in the hospital and a delayed recovery. The patient, however, stabilized and was well enough to be transferred to [facility]. The transfer was done on February 01, 2017. At the time of transfer, the patient was able to respond to some limited degree; he still had his left-sided weakness and was nonambulatory. Arrangements were made for him to be followed up upon discharge from the LTAC. FINAL DIAGNOSES: 1. Status post craniotomy and resection of right frontal glioblastoma. 2. Three time reopening of craniotomy for evacuation of brain abscess or PATIENT'S NAME: ELIAS MACKAY [facility] AGE: 61 Y [address] ROOM: [place] [address] LOCATION: [facility] ADMIT DATE: 01/04/2017 Discharge Summary DISCHARGE DATE: 02/01/2017 FAMILY PHYSICIAN: Hardeep Ohara MD ATTENDING PHYSICIAN: Julia Dennis placement of ventriculostomy. I should mention that at the time of transfer, the patient had developed what appeared to be another area of tumor recurrence, separate from the primary site, and this one was in the right temporal region. This obviously made his prognosis less favorable. MD MYKEL GLASSO/chinyere /[id number] d: 03/13/17 1208 t: 03/13/171948, DISCHARGE SUMMARY
--- NOTE | ~2017-01-04 | CON ---
PATIENT'S NAME: ELIAS MACKAY [facility] AGE: 61 Y [address] ROOM: [address] [address] LOCATION: [facility] ADMIT DATE: 01/04/2017 Consultation DISCHARGE DATE: FAMILY PHYSICIAN: Hardeep Ohara MD ATTENDING PHYSICIAN: Sanam Velazquez DATE OF CONSULTATION: 01/08/2017 REFERRING PHYSICIAN: RUBEN ROSADO MD The patient was seen in neurologic consultation on 01/08/2017 at 08:00 p.m. HISTORY OF PRESENT ILLNESS: Mr. Elias Mackay is a 61-year-old unfortunate male patient who presented back on October 19, 2016, with alteration in his mental status and difficulty in walking and experiencing some left-sided weakness. He was found on that date to have a large right mass that measured at that time 44 x 44 x 38 mm. There was some mass effect at the time of the presentation. On the very next day, Dr. Velazquez did a resection of the mass and the patient remained in the hospital here and went into rehab. Subsequent to the rehab, he received Temodar as well as radiation. He completed about 23 fractionated radiation therapies over the course of 30 days from around November 12, 2016, through December 12, 2016. Early in the course of his diagnosis of the resected tumor, which later turned out to be an unfortunate glioblastoma multiforme, the patient was placed on Keppra, though there was no history of known seizures at any time. In fact, his mental status has really remained fairly good, though he did have some events of confusion. It is sometimes variable. He has been on long-term steroids ever since he came in with this mass and steroids according to documentation included dexamethasone initially given at 4 mg q.12 hours that was eventually weaned lower to the current dose of 2 mg twice a day. On and around early December, this patient's girlfriend said that he was getting suddenly more weak, was having some falling, and also experiencing some left-sided ambulation difficulties. He was also known to have hyperglycemia that seemed to develop as a result of the steroids. He came into the hospital on the for further evaluation. An MRI of the brain revealed that the area where the tumor was resected had a mixed bag of fluid, gas, as well as some debride. There seemed to be some connection to the region where the craniotomy took place and a collection of fluid was also noted to be under the skin. The skin was noted to be fluctuant and was eventually cultured for Staphylococcus epidermidis. He has been treated with antibiotics including rifampicin to cover this type of a pathogen. He did undergo an initial drainage of the area that was thought to be the area of the tumor resection in the right brain that did have some mass effect and even some evidence of shift to the left and some associated right frontal horn obscuration. However, there was no evidence for hydrocephalus. The area that was thought to be abscessed was drained around the , but appears to be PATIENT'S NAME: ELIAS MACKAY [facility] AGE: 61 Y [address] ROOM: [id number] [place], [place] [address] LOCATION: [facility] ADMIT DATE: 01/04/2017 Consultation DISCHARGE DATE: FAMILY PHYSICIAN: Hardeep Ohara MD ATTENDING PHYSICIAN: Sanam Velazquez some recollection of fluid in the cavity. On the , Dr. Velazquez did go into the area again and placed a drainage according to the girlfriend. A followup CAT scan was performed today, which showed that there appears to be an improvement in the left shift of this right mass with some surrounding edema. The CAT scan was done basically due to the alteration in the patient's sensorium. As of the past 24 hours, he started to become much more somnolent. Yesterday, he was actually eating and moving his extremities, but by late evening and into the morning, he became much more tired. Apparently, he did receive a bit of morphine that may have added to some sedation. He does have some evidence of borderline fever, but no obvious evidence for a focal infection ongoing other than him being treated for the flocculent area under the skin, which was possibly thought to be some extension of an abscess, though this is not completely clear to me at this point. His vital signs remained stable and there has been no evidence of any drop in his blood pressure to suggest that he has any evidence for early sepsis. He remains within normal sinus rhythm with no evidence of tachycardia. He continues to have the fever noted even in the setting of receiving steroids, thus a olson right now is to find a possible etiology for the ongoing fever. He has no obvious excoriations of the skin, rashes, or erythema that would be suspect. Chest x-ray was performed today, which showed no area of pneumonia, though this may have to be repeated due to the fact that an aspiration event may have possibly be associated with the fever. He continues to take rifampicin and vancomycin as antibiotics. Today, when I saw him, he was extremely sedated. He was moving his upper extremities, but much more his right upper extremity compared to the left side. Deactivates less. He did not appear to be in acute distress and though he would occasionally hold his head, he did not appear to be in any pain and was comfortable. He was not opening his eyes, but seemed to be averse to light in any attempt to open his eyes manually, and the patient is clamping his eyes shut. PRIOR MEDICAL HISTORY: No significant prior medical history. Again, he was found to have a glioblastoma multiforme that was first diagnosed on the October 19, 2016, as a mass that was resected on the October 19, 2016, by Dr. Velazquez. In the cavity where the mass was resected, there was some fluid and some mild shift to the left and some thought that he may have had some secondary abscess. By history other than the history of this tumor, the patient has no known history of hypertension or known diabetes. He now has diabetes that was likely induced by the recent high doses of steroids. SOCIAL HISTORY: He has no known history of alcohol abuse or of smoking. He does have a girlfriend of approximately 2 years. CURRENT MEDICATIONS: PATIENT'S NAME: ELIAS MACKAY [facility] AGE: 61 Y [address] ROOM: [address] [address] LOCATION: [facility] ADMIT DATE: 01/04/2017 Consultation DISCHARGE DATE: FAMILY PHYSICIAN: Hardeep Ohara MD ATTENDING PHYSICIAN: Sanam Velazquez 1. Enoxaparin 40 mg subcutaneous daily. 2. Levetiracetam 500 mg IV twice a day, started today. 3. Vancomycin 1.75 g IV q.8 hours. 4. Rifampin 600 mg daily p.o. 5. Dexamethasone 2 mg IV b.i.d. 6. Multivitamin one tablet daily. 7. Pantoprazole 40 mg daily. 8. Zolpidem 5 mg q.h.s. p.r.n. REVIEW OF SYSTEMS: A 10-point review of systems is completely negative. There is only the history of resected right frontal mass that is a glioblastoma multiforme. He has completed Temodar as well as radiation treatments during the period from November 12, 2016, to December 12, 2016. PHYSICAL EXAMINATION: GENERAL: The patient is not arousable. He is sleeping; however, he is averse to light and slams his eyes shut. He does move his right upper and lower extremities easily. His left upper extremity can be moved, but he activates it less. He withdraws to pain in all limbs. I could not test his cranial nerves due to him not being able to participate. He grossly has normal facial symmetry intact. His motor tone appears to be normal. Reflexes are dull and +1 in the upper and lower extremities. IMPRESSION: Mr. Mackay clearly has had some alteration in his sensorium over the past 24 hours. The CAT scan of the brain does not show worsening of the scan as far as I could see. In fact, there was less of a shift to the left and more of opening of the frontal horns. Thus, from a standpoint of the mass effect, I do not think one can explain his mental status due to this. The fact that he is on steroids and still continues to have the amount of fever, demands that we look closely for any evidence of an infection. There is not any obvious infection currently, but I did request ordering of blood cultures from 2 different sites. Unfortunately, he is a hard stick and we could only get blood from the PICC line, which we give medications to. We will continue to try to look for available blood for culture. Standpoint of a possible aspiration. This is certainly possible even though the chest x-ray is negative. Perhaps we may want to check a chest x-ray in 48 hours if he continues to have some mild fever and remains somewhat somnolent. An EEG will be performed tomorrow. I do support placing him on the antiseizure medication that was started today; however, by history here, there really is not anything to suggest a generalized seizure. He was having some movement of his right upper extremity, but it did not appear to be rhythmic in nature and I do not believe history would support that he is having some subclinical seizure activity. However, I will review the EEG. We will continue to follow along PATIENT'S NAME: ELIAS MACKAY [facility] AGE: 61 Y [address] ROOM: [address] [address] LOCATION: [facility] ADMIT DATE: 01/04/2017 Consultation DISCHARGE DATE: FAMILY PHYSICIAN: Hardeep Ohara MD ATTENDING PHYSICIAN: Sanam Velazquez with Dr. Velazquez as well as the Hospitalist Service if we could be as much benefit to them. MD REY VELASQUEZ/chinyere /[id number] d: 01/09/17 0308 t: 01/10/17 1432, CONSULTATION REPORT
--- NOTE | ~2017-01-04 | OR ---
PATIENT'S NAME: ELIAS MACKAY [facility] AGE: 61 Y [address] ROOM: [address] [address] LOCATION: GICU ADMIT DATE: 01/04/2017 OR/Procedure Report DISCHARGE DATE: FAMILY PHYSICIAN: Hardeep Ohara MD ATTENDING PHYSICIAN: Sanam Velazquez SURGEON: Sanam Velazquez MD TIMEKEEPER: Shivam Crooks. DATE OF PROCEDURE: 01/16/2017 PREOPERATIVE DIAGNOSES: 1. Right frontal cyst. 2. Possible hydrocephalus. POSTOPERATIVE DIAGNOSES: 1. Right frontal cyst. 2. Possible hydrocephalus. PROCEDURE PERFORMED: 1. Insertion of left ventriculostomy for monitoring of intracranial pressure. 2. Aspirate of right subgaleal cyst. ANESTHESIA: General. HISTORY OF PRESENT ILLNESS: The patient is a 61-year-old male who has had a recurrent right frontal cyst. The cyst cavity was initially an abscess in an area, where the patient has had craniotomy for resection of brain tumor. After draining the abscess, the patient developed a cyst in this location and the cyst had been drained, but it recurred. After consultation with the [facility], there was a suspicion that the reason for the recurrent cyst was hydrocephalus causing fluids to spill from the ventricle into the cyst cavity. For this reason, we decided to shunt the ventricle or to drain the ventricle to see whether we could make the cyst to stop filling up. The procedure, benefits, and risks were discussed with the patient's power-of- attorney recruiter; and with their consent, the patient was brought to the operating room for surgery. PROCEDURE IN DETAIL: In the operating room, the patient was placed in a supine position. Anesthesia was induced. He was intubated. The entry point for the ventriculostomy was marked out on the left frontal region. The whole area was prepped and draped in a sterile fashion. Local anesthesia was infiltrated. A #10 blade was used to open the incision. The catheter was tunneled under the scalp and brought out of the entry point. The twist drill was used to drill a hole through the skull. The catheter was inserted through this hole into the ventricle. The ventricle was accessed at first try. Opening pressure was about PATIENT'S NAME: ELIAS MACKAY [facility] AGE: 61 Y [address] ROOM: [id number] [place], [place] [address] LOCATION: GICU ADMIT DATE: 01/04/2017 OR/Procedure Report DISCHARGE DATE: FAMILY PHYSICIAN: Hardeep Ohara MD ATTENDING PHYSICIAN: Sanam Velazquez 12 cm of CSF. The catheter was hooked up to the drainage bag and the pressure was set to drain at 15. Attention was then directed to the right frontal area. The subgaleal cyst was aspirated. Samples were sent for culture and sensitivity. CSF was also sent for cultures. The patient was left intubated and brought back to the ICU to continue his recovery. I was present at and performed every aspect of this procedure assisted at some stages by the operating room nurses. There were no apparent intraoperative complications. Swabs, needles, and instruments were all accounted for at the end of the case. Estimated blood loss was less than 10 mL and there was no indication for blood transfusion. The patient's prognosis is still uncertain at this time. There is a new area of tumor focus discovered in the right temporal region, which is concerning for multifocal glioblastoma. I will obtain another head CT scan to monitor the size of the cyst. MD MYKEL GLASSO/modl /[id number] d: 01/20/17 0126 t: 01/28/17 0940, OPERATIVE SUMMARY
--- NOTE | ~2017-01-04 | CON ---
PATIENT'S NAME: ELIAS MACKAY [facility] AGE: 61 Y [address] ROOM: [place] [address] LOCATION: [facility] ADMIT DATE: 01/04/2017 Consultation DISCHARGE DATE: FAMILY PHYSICIAN: Sanam Velazquez MD ATTENDING PHYSICIAN: Sanam Velazquez CHIEF COMPLAINT: Obtundation. HISTORY OF PRESENT ILLNESS: This is a 61-year-old male who was in acute rehab undergoing a rehab for his left-sided weakness secondary to right frontal brain collection, and yesterday, the patient was observed by the Nursing Team that he was more obtunded and less responsive and the MRI which was done by Dr. Velazquez revealed an increase in the right frontal cyst collection and so the patient was taken into the OR yesterday for a drain to be put in; however, since yesterday and now, the patient's obtundation has not improved instead its worsened, so Dr. Velazquez consulted us to look for any other cause of worsening in his obtundation. Since admit to Acute Care, the patient has not had any fever. He is currently on mannitol and we are awaiting the results of his CBC and CMS. Blood pressure as well has been stable since being in Acute Care. REVIEW OF SYSTEMS: The 13 elements of review of systems were asked and was found not to be contributory. PAST MEDICAL HISTORY: Includes history of glioblastoma, status post resection, status post chemo and radiation. Also, prostatic hyperplasia and recently during his last acute care managed for right frontal brain abscess, and also steroid-induced hyperglycemia, hypertension and also left-sided hemiparesis. PAST SURGICAL HISTORY: Includes excision of a right frontal glioblastoma multiforme and recently status post josé miguel hole with drain placement by Dr. Velazquez, and some nasal polyp removal. SOCIAL HISTORY: As per records, no history of smoking or use of alcohol. Lives with his . FAMILY HISTORY: Significant for hypertension in both parents. PHYSICAL EXAMINATION: VITAL SIGNS: Temperature 98.6, pulse 87, respiratory rate 20, blood pressure 112/71, oxygen saturation 97% on room air. PATIENT'S NAME: ELIAS MACKAY [facility] AGE: 61 Y [address] ROOM: [place] [address] LOCATION: [facility] ADMIT DATE: 01/04/2017 Consultation DISCHARGE DATE: FAMILY PHYSICIAN: Sanam Velazquez MD ATTENDING PHYSICIAN: Sanam Velazquez GENERAL: Reveals a male who is laying supine in bed. Unresponsive to tactile and vocal stimuli. Localizes pain during sternal rub; however does not open his eyes and moans down slightly to the sternal rub. NEUROLOGIC: Unable to be carried out secondary to the mental status of the patient. HEENT: Head has a dressing with a drain underneath the dressing. Eyes: Pupils are reactive to light bilaterally. Mucosa is moist. Ears: No obvious ear discharge or drainage. CARDIOVASCULAR: Normal S1 and S2. Regular rate and rhythm. CHEST: Clear to auscultation bilaterally. ABDOMEN: Soft, nondistended. No area of tenderness. No palpable organomegaly. EXTREMITIES: There is no joint swelling or erythema or tenderness. SKIN: No rash or skin breakdown. LABORATORY DATA: Labs are still pending for now. CT of the head, which was done today is reported as right frontal craniotomy with air and fluid in the cavity in the right frontal lobe. Ventriculostomy has its tip in the base of the right frontal horn. Midline shift of the ventricles has worsened, but is less compression of the ventricles. Midline shift today measures 15 mm at the mid frontal horns. No hemorrhage noted. MRI which was done yesterday, status post evacuation, right frontal abscess. There is residual large right frontal complex fluid collection in cavity. This could be residual abscess. There is mass effect and surrounding edema. ASSESSMENT AND PLAN: This is a 61-year-old male with history of glioblastoma on the right frontal lobe, status post resection chemo and radiation and with right frontal abscess collection, and status post drainage. 1. Unresponsiveness. Unknown etiology right now or it could be multifactorial. Could be secondary to the cerebral edema as well as the midline shift, accounted for possibly from raised intracranial pressure; however the patient has a drain in place. Probably, he is still manifested in the effect of the cerebral edema. So will see what the effect is after he gets the mannitol. However, we will do a sepsis workup as well. We will check his prolactin and follow up on the results of the CBC and CMS, and we will also do a UA and a urine culture. 2. Steroid-induced hyperglycemia. We will continue him on the insulin. Blood sugar is stable. 3. Essential hypertension. Blood pressure is stable. We will continue him on his medication. 4. Right frontal abscess. The patient is currently on long-term antibiotics. Management is per as per ID. Continue him on the antibiotics. PATIENT'S NAME: ELIAS MACKAY [facility] AGE: 61 Y [address] ROOM: [place] [address] LOCATION: [facility] ADMIT DATE: 01/04/2017 Consultation DISCHARGE DATE: FAMILY PHYSICIAN: Sanam Velazquez MD ATTENDING PHYSICIAN: Sanam Velazquez The line of management was explained to the patient's family who did not have any questions at this time. RANDALL MYERS MD ODO/susannal /[id number] d: 01/05/17 2251 t: 01/13/17 1637, CONSULTATION REPORT
--- NOTE | ~2017-01-04 | OR ---
PATIENT'S NAME: ELIAS MACKAY [facility] AGE: 61 Y [address] ROOM: [address] [address] LOCATION: [facility] ADMIT DATE: 01/04/2017 OR/Procedure Report DISCHARGE DATE: FAMILY PHYSICIAN: Hardeep Ohara MD ATTENDING PHYSICIAN: Sanam Velazquez SURGEON: Sanam Velazquez MD CAMPAIGN MANAGER: Ermelinda Quijano. DATE OF PROCEDURE: 01/23/2017 CORRECTED PATIENT ACCOUNT INFORMATION 01/29/17 AO PREOPERATIVE DIAGNOSIS: Recurrent right frontal collection. POSTOPERATIVE DIAGNOSIS: Recurrent right frontal abscess. PROCEDURES PERFORMED: 1. Reopening of right frontal craniotomy and evacuation of brain abscess. 2. Duraplasty, greater than 5 cm. 3. Placement of external drain in abscess cavity. ANESTHESIA: General. HISTORY: This patient is a 61-year-old male who has had craniotomy and resection of glioblastoma in October. Subsequently, he developed a brain abscess in the tumor cavity 2 months after his surgery was completed and while he was doing radiation and chemotherapy. The abscess was evacuated, but it recurred. It was necessary to take the patient back to the operating room for repeat evacuation. The procedure, benefits, and risks were discussed with the patient and family members. With their consent, the patient was brought to the operating room for surgery. PROCEDURE IN DETAIL: In the operating room, the patient was placed in a supine position. Anesthesia was induced. He was intubated. His head was supported on a gel donut and positioned in a way that the incision site on the right side of his head was uppermost. The whole area was prepped and draped in a sterile fashion. The previous sutures were removed, and the scalp flap was reopened. There was fluid collection in the subgaleal space. The bone flap was also removed, and there was fluid collection underneath the bone flap. Samples were taken both from the subgaleal as well as the epidural area. The material encountered was thick and yellowish in color. This appeared to be purulent, and cultures were taken. The previous duraplasty was opened, and we went into the abscess cavity itself. More of the same yellowish purulent material was extracted. The Son[place]et was used to remove the scar tissue from the edges of the abscess PATIENT'S NAME: ELIAS MACKAY [facility] AGE: 61 Y [address] ROOM: [address] [address] LOCATION: [facility] ADMIT DATE: 01/04/2017 OR/Procedure Report DISCHARGE DATE: FAMILY PHYSICIAN: Hardeep Ohara MD ATTENDING PHYSICIAN: Sanam Velazquez cavity, and suction was also used to remove some of the pseudocapsule around the abscess cavity. This was being done to reduce any chance of recurrence. The procedure continued until all visible abnormal tissue was removed. Samples were sent for both histology as well as microbiology. The cavity was then copiously irrigated. The bone flap was scrubbed with Betadine. All visible abnormal tissue was removed, and a good amount was sent for histology and microbiology evaluation. The previous duraplasty was removed, and a new duraplasty was used to repair the dura. The bone flap was also replaced. The bone flap was sutured to the craniotomy cavity using holes that had been drilled around the edge of the bone flap and around the edge of the craniotomy defect. Prior to replacing the bone flap, a catheter was placed in the cavity of the abscess and brought out through a separate stab wound in the scalp. The catheter was passed through a hole in the center of the bone flap. The incision was then closed with appropriate suture materials. A sterile dressing was applied. The patient was extubated and taken back to the recovery room to complete his recovery. I was present at and performed every aspect of this procedure, assisted at some stages by operating room nurses. There were no apparent intraoperative complications. Swabs, needles, and instruments were all accounted for at the end of the case. Estimated blood loss was 300 mL, and there was no reason for a blood transfusion. I expect the patient to benefit from this procedure. Hopefully, the abscess will not recur, and there will be no need for a repeat evacuation. MD MYKEL GLASSO/chinyere /[id number] CORRECTED PATIENT ACCOUNT INFORMATION 01/29/17 AO d: 01/28/17 1322 t: 01/30/17 1240, OPERATIVE SUMMARY
--- NOTE | 2017-01-04 19:25 | NUR ---
ADMISSION DATA BASE COPIED FROM 01/02/17. RE-ENTERED. SOME DATA NOT AVAILABLE TO ASSESS, THE PATIENT WENT TO SURGERY.
--- NOTE | 2017-01-05 00:53 | NUR ---
Patient has a history of a Right Frontal brain tumor craniotomy with removal of a possible glioblastoma with placement of Wafers in 2016, prior to the surgery he was having personality changes, unsteadiness and fell a number of time. He was also slow to respond, confused to [facility] with a CT showing a Right frontal lesion and trasnferred here with an MRI showing a R) frontal mass possible glioblastoma in nature. He was re-admitted on December 28 for L) sided weakness, hyperglycemia in relation to Steroids and also had fatigue with inability to stand. A R) frontal cyst/abscess was found and removed by craniotomy on 12/28. He was later transferred to [facility] to help with strengthening on his L) side, On 01/04 a MRI revealed increased edema to the surgical site and a R) frontal craniotomy with BRETT drain placement was performed on 01/04. He arrived to the floor from PACU at 2250 accompanied by family, vital signs stable upon admission, currently on 3L via O2, talkative AAOx3.
--- NOTE | 2017-01-05 05:15 | NUR ---
Significant Event: AAOx3, forgetful. Denies N/T. PERRLA 3mm brisd, C/O blurred vision on occasion, withdrawn and flat affect. R) frontal dressing changed x 2 this shift d/t patient pulling off, BRETT drain 65out this shift serosangenous in color. Has difficulty following commands to left side when drowsy, after repositioning and vital signs patient is able to follow commands to L) side. Weak hand grasp to LUE. LLE able to wiggle toes on command, withdraw present to all 4 extremities. 1+ generalized edema to hands, 2+ to feet. Systolic 110-130's, HR 70-100's. L.S. clear and diminished in lower lobes, on RA. B.S. active, last BM unsure. Smiley intact draining farooq urine. Placed R) mitten restraint d/t patient pulling off dressing and attempting BRETT/smiley removal. PIC R) upper arm infusing NaCl at 75mL/hr with intermittent Oxacillin Q4Hr. Gave Tylenol last at 0245 for R) frontal [place] 510; relief noted, gave Free Soil last at 2320. Turn Q2H. ADA diet, Accuchecks AC/HS. Weight bearing as tolerated, have not gotten patient up yet. Follow up: Monitor neuro status, re-orient as needed.
[2017-01-05 16:02] LABS: HEMATOCRIT 33.6 % (37.0-53.0); HEMOGLOBIN 11.3 g/dL (12.0-17.0); MCHC 33.6 gm/dL (32.0-36.5); MCV 92.1 fl (83.0-98.0); MPV 8.7 fl (9.4-12.4); PLATELET COUNT 152 K/uL (150-450); RBC 3.65 M/uL (4.00-6.00); RDW-CV 14.8 % (11.9-14.6); WBC 8.7 K/uL (4.0-11.0)
[2017-01-05 16:27] LABS: ALBUMIN 2.2 gm/dL (3.5-5.0); ALK PHOS 88 IU/L (33-138); ALT 57 IU/L (12-78); AST 21 IU/L (10-40); BLOOD UREA NITROGEN 13 mg/dL (6-24); CALCIUM 7.9 mg/dL (8.5-10.5); CHLORIDE 106 mMol/L (96-110); CO2 28 mMol/L (22-32); CREATININE 0.6 mg/dL (0.6-1.3); ESTIMATED GFR (MDRD EQUATION) > 60; SODIUM 141 mMol/L (135-145); TOTAL PROTEIN 4.5 g/dL (6.0-8.4)
[2017-01-05 16:28] LABS: TOTAL BILIRUBIN 0.5 mg/dL (0.0-1.5)
[2017-01-05 16:29] LABS: ABSOLUTE NEUTROPHIL CT (ANC) 7.6 K/uL (1.4-9.0); BANDED NEUTROPHIL # 0.6 K/uL (0.0-0.1); BANDED NEUTROPHILS % 7 %; LYMPHOCYTE # 0.6 K/uL (0.8-4.0); LYMPHOCYTE % 7 %; MONOCYTE # 0.5 K/uL (0.0-1.0); SEGMENTED NEUTROPHIL % 80 %
[2017-01-05 17:23] LABS: BILIRUBIN URINE NEGATIVE (NEGATIVE); BLOOD URINE 25 /UL (NEGATIVE); COLOR URINE STRAW (YELLOW); GLUCOSE URINE NEGATIVE (NEGATIVE); KETONE URINE NEGATIVE (NEGATIVE); LEUKOCYTES URINE 100 /UL (NEGATIVE); NITRITE URINE NEGATIVE (NEGATIVE); PROTEIN URINE NEGATIVE (NEGATIVE); TURBIDITY URINE CLEAR (CLEAR); UROBILINOGEN URINE NORMAL (NORMAL)
[2017-01-05 17:35] LABS: RBC URINE 0-2 #/HPF (NEGATIVE)
[2017-01-05 17:37] LABS: AMORPHOUS URINE 3+ (NEGATIVE); BACTERIA URINE MODERATE (NEGATIVE); EPITHELIAL URINE RARE #/HPF (NEGATIVE); MUCUS URINE 1+ (NEGATIVE)
--- NOTE | 2017-01-05 18:50 | NUR ---
Significant Event: patient opened eyes spontaneously and was oriented x 3 with initial assessment. as morning progressed drowsiness increased and he responded to painful stimuli late morning/early aftn. Dr. Velazquez ordered CT of head and mannitol. CT done and mannitol administered. by shift change patient opened eyes again to verbal stimuli but was very drowsy and did not follow commands. Left side weaker than right. Mitten restraint to right hand. dsg to head C/D/I. BRETT drain with compressed bulb- 140 out this shift of serosangenous drainage. generalized edema. smiley cath patent with clear/yellow output. Accuchecks ac/hs. no food intake this shift. PT/OT. tele with NSR. Pupils 3.0/brisk. Hospitalist consulted and Dr. Rankin saw this aftn- UA and procalcitonin level ordered.
--- NOTE | 2017-01-06 05:11 | NUR ---
Significant Event:Patient alert to self. Will nod appropriately. Has whispered "hi" twice this shift, otherwise has been non-verbal. Very drowsy and difficult to arouse. Responds to painful stimuli. Not following commands. Perrl. Dr. Velazquez aware, came up to see patient. Order to leave BRETT drain to right side of head uncompressed. VSS. Afebrile. Lungs clear and dim on room air. Apneic periods. Bowel sounds active. Bliss catheter intact. Dressing intact to head. 95 ml out of BRETT drain. PICC to RUE running NS at 75 ml/hr. Morphine given once x 2 mg at 0117. ACHS accuchecks. Mitten restraint to right hand intact. Follow up: Continue to monitor
--- NOTE | 2017-01-06 17:39 | NUR ---
Significant Event: drowsy this morning, this afternoon, A/O X3 & participates in care. L) sided weakness, drsg D/I to head, BRETT 30ml output, smiley patent. dangled w/ PT x15 minutes. family @ bedside, up in chair this afternoon, full lift morphine x1, norco x1, R)PICC patent. eating well this afternoon. Follow up: accuchecks,
--- NOTE | 2017-01-07 07:29 | NUR ---
Significant Event: Patient alert but drowsy. Will open eyes and speak few words at times. But mostly will just nod head to questions. Became more alert throughout shift. Denies N/T. LLE and LUE flaccid this shift. RUE moves spontaneously. Wiggles toes to RLE. VSS. Lungs clear and dim on room air. ADA diet. ACHS accuchecks. Bliss intact. Full lift for transfers. PICC to RUE running NS at 75 ml/hr. BRETT to head intact, 12 ml for output this shift. Dressing to head intact. Mitten restraint to right hand intact. Morphine given x 1 this shift for headache, relief noted. Girlfriend at bedside. Follow up: BRETT out today?
--- NOTE | 2017-01-07 12:10 | NUR ---
Introduced self and CM role to Jayant, his S/O, his mom and sister who were all at bedside. I am familiar with them from his recent stays here at [facility]. Jayant was just sent to [facility] last week before he was trasferred back to us on Acute Care. I did visit with CM Ashley on [facility] prior to going into his room. She tells me that once he is medically stable, they would re-evaluate him to get him back to [facility]. Shared this with Jayant and family they were all in agreement with this plan. Denied any questions, needs or concerns at this time. Insurance authorization will need to be obtained before he can return back to [facility]. CM to continue to follow and assist.
[2017-01-07 13:21] LABS: CREATININE 0.7 mg/dL (0.6-1.3); ESTIMATED GFR (MDRD EQUATION) > 60
--- NOTE | 2017-01-07 16:38 | NUR ---
Significant Event: Patient drowsy this AM. Patient A/O X3 most of shift. Follows commands. LUE moves slightly and weak. LLE no movement witnessed. Right extremities move to command and spontaneous. VSS. Afebrile. Room air with sats in the mid 90s. LS clear and diminished. BS active X4. Large BM X2. Nino in place draining yellow urine. 650 ml/out. BRETT drain pulled this shift. Dr Velazquez said it was CSF in the drain. Drain plced in trash before measuring. Mepilex, gauze and tegaderm to top of head. C/D/I. PICC to DESIREE infusing with no complications. Full lift. Accuchecks ACHS with SSI. Takes pills whole. R) hand mitten. Bledsoe X1 given this afternoon for headache. Family at bedside. Pleasant and cooperative with cares. Follow up: GIRP???
--- NOTE | 2017-01-08 04:40 | NUR ---
Significant Event: A/OX3. DROWSY. NODS YES OR NO TO MOST QUESTIONS. LUNGS CLEAR AND DIMINISHED ON ROOM AIR. MOVES RIGHT SIDE SPONTANEOUSLY AND TO COMMAND. LEFT UPPER EXTREMITITY WITHDRAWS FROM PAIN. LEFT LOWER EXTREMITY IS FLACCID. FEBRILE FOR MOST OF SHIFT. 101.3 WAS HIGHEST. GAVE TYLENOL WITH NO CHANGE IN TEMPERATURE. ALERTED DR CALDERA WHO ORDERED TORADOL. AFTER TORADOL PATIENTS TEMPERATURE REMAINED IN THE 98.5-99.6 RANGE. ACCUCHECK WAS 101, HELD LEVERMIR PER DR CALDERA'S ORDER AND PATIENT NOT EATING SUPPER. MORPHINE GIVEN X1 FOR PAIN. CRUSHED MEDS IN APPLESAUCE. DC'D KWAN THIS AM. REGULAR DIET. ACHS ACCUCHECKS. FULL LIFT. DRESSING TO HEAD C/D/I. SWELLING TO HEAD NOTED. INTERMITTENT ANTIBIOTICS. NORMAL SALINE RUNNING THROUGH RIGHT UPPER ARM PICC AT 75ML/HR. Follow up:
[2017-01-08 04:56] LABS: ANION GAP 11.7 (10.0-19.0); BLOOD UREA NITROGEN 16 mg/dL (6-24); CALCIUM 7.9 mg/dL (8.5-10.5); CHLORIDE 108 mMol/L (96-110); CO2 25 mMol/L (22-32); CREATININE 0.6 mg/dL (0.6-1.3); ESTIMATED GFR (MDRD EQUATION) > 60; POTASSIUM 3.7 mMol/L (3.7-5.1); SODIUM 141 mMol/L (135-145)
[2017-01-08 05:11] LABS: BASOPHIL % 0.2 %; EOSINOPHIL % 0.3 %; HEMATOCRIT 34.1 % (37.0-53.0); HEMOGLOBIN 11.3 g/dL (12.0-17.0); IMMATURE GRANULOCYTE # 0.4 K/uL (0.0-0.3); LYMPHOCYTE # 1.1 K/uL (0.8-4.0); LYMPHOCYTE % 11.1 %; MCH 30.2 pg (27.0-34.0); MCHC 33.1 gm/dL (32.0-36.5); MCV 91.2 fl (83.0-98.0); MONOCYTE # 0.7 K/uL (0.0-1.0); MONOCYTE % 7.4 %; MPV 8.9 fl (9.4-12.4); NEUTROPHIL # (ANC) 7.4 K/uL (1.4-9.0); NRBC % 0.4 /100WBC (0-0.00); PLATELET COUNT 169 K/uL (150-450); RBC 3.74 M/uL (4.00-6.00); RDW-CV 14.9 % (11.9-14.6); WBC 9.6 K/uL (4.0-11.0)
--- NOTE | 2017-01-09 04:14 | NUR ---
Significant Event: Patient opens eyes to voice. moves right side spontaneously. left upper extremity withdraws to pain. left lower extremity flaccid. due to increased lethargic patient had chest xray and mrv. mrv was unsucessful and another will be done today. patient had blood cultures done x1. order is for blood cultures x2 - unable to draw off of patient. called dr and will try redrawing in morning. started on lovenox for dvt prophalaxis. urine cultures done. EEG this am. KUB done for distened abdomen. d/c'd morphine and toradol - quesitoning if that is part of confusion. febrile. highest temp was 100.2. last two temps were 98.9 and 99.8. unable to give PO meds due to patient being lethargic. PICC to right upper arm running NS at 75/hr with intermittent vanco. started IV keppra this shift. gave one dose of mannitol. smiley restarted for strict I&O. 2950 urine output. 1418 intake. full lift. lungs clear and dim on room air. incontinent of BMs. achs accuchecks. held insulin due to patient refusing all meals yesterday. no signs of pain this shift. family at bedside. Follow up: EEG this am. need one more set of blood cultures.
[2017-01-09 05:40] LABS: HEMATOCRIT 34.2 % (37.0-53.0); HEMOGLOBIN 11.6 g/dL (12.0-17.0); MCH 30.6 pg (27.0-34.0); MCHC 33.9 gm/dL (32.0-36.5); MCV 90.2 fl (83.0-98.0); MPV 8.5 fl (9.4-12.4); PLATELET COUNT 164 K/uL (150-450); RBC 3.79 M/uL (4.00-6.00)
[2017-01-09 06:08] LABS: ABSOLUTE NEUTROPHIL CT (ANC) 5.9 K/uL (1.4-9.0); BANDED NEUTROPHIL # 0.6 K/uL (0.0-0.1); BANDED NEUTROPHILS % 8 %; LYMPHOCYTE # 1.4 K/uL (0.8-4.0); LYMPHOCYTE % 17 %; MONOCYTE # 0.5 K/uL (0.0-1.0); SEGMENTED NEUTROPHIL # 5.3 K/uL (1.4-9.0); SEGMENTED NEUTROPHIL % 66 %
--- NOTE | 2017-01-09 13:47 | NUR ---
A - PT SCREENED D/T LOS. LETHARGIC. KUB - CONSTIPATION. REFUSING MEALS AT TIMES. 2+ EDEMA. BRAIN MASS S/P RESECTION. FROM [facility]. HT: 68" WT: 230# BMI: 35.4 LABS: ACCUCHECK WNL-REAS, GLU 148, ALB 2.2, PREALB 27. MEDS: OXACILLIN, KEPPRA, VANCO, PEPCID, LEVEMIR, DECADRON, PROTONIX, SSI, FLORASTOR. DIET: REG. INTAKE: 75-100% x 4; REFUSED x 6 NEEDS: 1057-6859 KCAL (15-20 KCAL/KG), 105-125 G PRO (1-1.2 G/KG), 2610 ML FLUID (25 ML/KG) D - INADEQUATE NUTRIENT INTAKE R/T DECREASED APPETITE AEB INTAKE RECORD, MEAL REFUSALS. I - GOAL FOR INCREASED MEAL ACCEPTANCE. WILL ADD ENSURE TID. IF MEAL REFUSALS CONTINUE MAY NEED TO CONSIDER ENTERAL NUTRITION. M/E - WILL MONITOR POC, INTAKE F/U IN 2-5 DAYS.
[2017-01-09 14:04] LABS: CREATININE 0.5 mg/dL (0.6-1.3); ESTIMATED GFR (MDRD EQUATION) > 60
--- NOTE | 2017-01-09 19:20 | NUR ---
Significant Event: opens eyes spontaneously at times. sleepy with inital and third assessment. increased alertness with 1100 assessment taking meds crushed in applesauce and working with speech therapy. nonverbal. mitten to right hand. smiley cath with 2400 of concentrated yellow output. no BM. repositioned with two assist. EEG this am. DSG to head removed for EEG. Sutures to head with skin approximated- no redness/drainage. PICC to right upper arm with NS at 75ml/hr with intermitten antibiotics. Infectious disease doctor saw patient today. tele with NSR. manuel aguillon/hs.
--- NOTE | 2017-01-10 03:05 | NUR ---
Significant Event: Patient started out a/ox3 and conversing with his family. He was able to eat a couple bites of supper. He could move his right extremities spontaneously and to command. his left arm was flaccid and left leg was able to move slightly. he was able to take his pills crushed in applesauce. my next two assessments the patient would only say hi and not answering any questions or have a conversation. his right upper extremitity moved spontaneously and to command. his lower extremities reacted to pain and his left upper was flaccid. tachycardic. temps ranged from 98.9 to 100.2. smiley in for accurate I&O -1100 out. PICC to right upper arm running normal saline at 75/hr. intermittent oxaccillin and vanco (next trough before 01/10 2200 dose) and keppra. VSS on room air. achs accuchecks. held levemir due to blood glucose and not eating much. Follow up:
[2017-01-10 03:59] LABS: ANION GAP 11.4 (10.0-19.0); BLOOD UREA NITROGEN 8 mg/dL (6-24); CHLORIDE 112 mMol/L (96-110); CO2 26 mMol/L (22-32); CREATININE 0.5 mg/dL (0.6-1.3); ESTIMATED GFR (MDRD EQUATION) > 60; POTASSIUM 3.4 mMol/L (3.7-5.1)
[2017-01-10 04:00] LABS: SODIUM 146 mMol/L (135-145)
[2017-01-10 04:03] LABS: BASOPHIL % 0.4 %; EOSINOPHIL # 0.1 K/uL (0.0-0.5); EOSINOPHIL % 0.9 %; HEMATOCRIT 33.2 % (37.0-53.0); HEMOGLOBIN 11.2 g/dL (12.0-17.0); IMMATURE GRANULOCYTE # 0.3 K/uL (0.0-0.3); IMMATURE GRANULOCYTE % 4.3 %; LYMPHOCYTE # 0.9 K/uL (0.8-4.0); LYMPHOCYTE % 13.7 %; MCH 30.9 pg (27.0-34.0); MCHC 33.7 gm/dL (32.0-36.5); MCV 91.7 fl (83.0-98.0); MONOCYTE # 0.6 K/uL (0.0-1.0); MONOCYTE % 8.5 %; MPV 8.9 fl (9.4-12.4); NEUTROPHIL # (ANC) 4.9 K/uL (1.4-9.0); NEUTROPHIL % 72.2 %; NRBC % 0 /100WBC (0-0.00); PLATELET COUNT 178 K/uL (150-450); RBC 3.62 M/uL (4.00-6.00); RDW-CV 15.3 % (11.9-14.6); WBC 6.8 K/uL (4.0-11.0)
--- NOTE | 2017-01-10 17:41 | NUR ---
Significant Event: patient has increased alertness from yesterday. woke up about 0700 and has been mainly awake throughout day with intermittent periods of sleeping. oriented x 3. denies pain. slight movement to left upper extremity and bilateral lower extremities. moderate strength to right upper extremity. pupils 3.0/brisk. mepilex dsg to crainiotomy site left side of head C/D/I. accuchecks ac/hs. diabetic diet. takes meds whole one at a time. smiley cath with yellow/concentrated output. PICC to right upper arm with NS infusing at 75ml/hr. full lift with transfers. moderate and xlarge bowel movement today per BSC. tele with NSR.
--- NOTE | 2017-01-11 02:12 | NUR ---
Significant Event: Pt wakes up and is alert does not say much but will not his head appropriately. Very drowsy. Will follow commands. L) upper extremity unable to move. R) arm able to move spontaneously. Lower extremity bilaterally weak. Up full lift. On tele SR. RA lungs clear. Diabetic diet thin liquids. Bliss good urine output. Last BM 01/10/17. Drsg to head C/D/I. Single lumen PICC to R) upper arm running NS. Takes meds whole 1 at a time with water. Follow up: Accuchecks AC/HS held levemir due to pt not having good appetite.
[2017-01-11 05:00] LABS: ANION GAP 11.5 (10.0-19.0); BLOOD UREA NITROGEN 5 mg/dL (6-24); CALCIUM 8.6 mg/dL (8.5-10.5); CHLORIDE 109 mMol/L (96-110); CO2 24 mMol/L (22-32); CREATININE 0.4 mg/dL (0.6-1.3); ESTIMATED GFR (MDRD EQUATION) > 60; POTASSIUM 3.5 mMol/L (3.7-5.1); SODIUM 141 mMol/L (135-145)
--- NOTE | 2017-01-11 11:20 | NUR ---
Diabetes center note: 1030 We continue to trend blood sugars, since patient started on sliding scale just prior to this hospitalization. Patient does remain on low dose steriods and is currently on sliding scale here, but is also taking Levemir 10 units. Blood sugars are in proper control. Mother and other family members at bedside states that patient will probably be going to rehab again after this hospital stay. CDE offered education to family regarding insulin injection technique using an insulin pen device when the time gets closer to dismissal. Mother states she had given her late insulin injections, but states she used the vial and syringe method, and is not sure how to utilize the insulin pen device. Daiana, patient's significant other has been giving insulin injections at home, but she does work 12 hour shifts, 3 days per week, so it will be important to educate other family members on assistance with caring for patient. Family instructed to notify nurses on rehab when the time gets closer to dismissal, so CDE to demonstrate use of insulin pen device.
--- NOTE | 2017-01-11 14:59 | NUR ---
A - NUT F/U. DROWSY. APPETITE POOR. 1-2+ EDEMA. LABS: ACCUCHECK WNL-REAS, K+ 3.5, GLU 120, BUN/CR 5/0.4, ALB 2.2. MEDS: VANCO, OXACILLIN, KEPPRA, PEPCID, LEVEMIR, DECADRON, PROTONIX, SSI, FLORASTOR, IVF, BOWEL. DIET: REG. INTAKE: REF-75%, AVG ~16% ENSURE TID. NEEDS: 2878-2036 KCAL, 105-125 G PRO D - INADEQUATE NUTRIENT INTAKE R/T DECREASED APPETITE AEB INTAKE RECORD. PT UNABLE TO MEET NEEDS ORALLY. I - GOAL FOR INCREASED NUTRIENT INTAKE. REC DOBHOFF PLACEMENT AND PROMOTE @ 75 ML/HR W/ 75 ML WATER Q6 HRS TO PROVIDE 1800 KCAL, 113 G PRO, 1510 ML FREE WATER (+ FLUSH). WILL ADD ENSURE PUDDING @ L&D. M/E - WILL MONITOR POC, INTAKE F/U IN 2-4 DAYS.
--- NOTE | 2017-01-11 15:02 | NUR ---
ORAL INTAKE AVG ~16%. REFUSING MOST MEALS. UNABLE TO MEET NEEDS ORALLY. REC DOBHOFF PLACEMENT AND PROMOTE @ 75 ML/HR W/ 75 ML WATER Q6 HRS.
--- NOTE | 2017-01-11 18:05 | NUR ---
Significant Event: patient is alert at times. opens his eyes spontaneously and to verbal stimuli. when alert is oriented x 3. denies pain. weakness to left upper extremity and bilateral lower extremity. tele with NSR. room air. takes meds whole. ADA diet. accuchecks ac/hs. transfers with full lift. did take a couple of steps with nsg this aftn to get on the BSC and back to bed but patient was very alert at this time. PICC to right upper arm. Mepilex DSG to right side of head C/D/I. Denies pain. Plan- GIRP when ready.
--- NOTE | 2017-01-12 03:58 | NUR ---
Significant Event: Patient drowsy at times but awakens to verbal stimuli. Oriented x3. LUE weakness and LLE was withdrawing to pain but with last assessment was able to wiggle toes. Remains in sinus rhythm with HRs 80s-low 100s and SBPs 110s. Afebrile. Mepilex x2 to head dry and intact. Bliss draining large output. Right arm PICC running IV fluids and antibiotics. [place] given once for headache with relief. Cooperative with cares Follow up: monitor neuro status, monitor bloating, accuchecks ACHS
[2017-01-12 05:05] LABS: ANION GAP 11.7 (10.0-19.0); BLOOD UREA NITROGEN 4 mg/dL (6-24); CALCIUM 8.1 mg/dL (8.5-10.5); CHLORIDE 107 mMol/L (96-110); CO2 26 mMol/L (22-32); CREATININE 0.5 mg/dL (0.6-1.3); ESTIMATED GFR (MDRD EQUATION) > 60; POTASSIUM 3.7 mMol/L (3.7-5.1); SODIUM 141 mMol/L (135-145)
[2017-01-12 05:17] LABS: BASOPHIL % 0.7 %; EOSINOPHIL # 0.1 K/uL (0.0-0.5); EOSINOPHIL % 1.3 %; HEMATOCRIT 31.3 % (37.0-53.0); HEMOGLOBIN 10.7 g/dL (12.0-17.0); IMMATURE GRANULOCYTE # 0.2 K/uL (0.0-0.3); IMMATURE GRANULOCYTE % 4.5 %; LYMPHOCYTE # 1.1 K/uL (0.8-4.0); LYMPHOCYTE % 20.8 %; MCH 30.8 pg (27.0-34.0); MCHC 34.2 gm/dL (32.0-36.5); MCV 90.2 fl (83.0-98.0); MONOCYTE # 0.5 K/uL (0.0-1.0); MONOCYTE % 9.3 %; MPV 8.4 fl (9.4-12.4); NEUTROPHIL # (ANC) 3.4 K/uL (1.4-9.0); NEUTROPHIL % 63.4 %; NRBC % 0 /100WBC (0-0.00); PLATELET COUNT 208 K/uL (150-450); RBC 3.47 M/uL (4.00-6.00); RDW-CV 15.2 % (11.9-14.6); WBC 5.4 K/uL (4.0-11.0)
--- NOTE | 2017-01-12 14:26 | NUR ---
Significant Event: A/O X3. Drowsy at times. PERRLA. 2BB. LUE grasp weak and LLE with minimal movements. VSS. Afebrile. Room air with sats in the mid 90s. LS clear and diminished. Bliss in place draining orange colored urine. BS active x4. Large BM this shift. Mepilex x2 to top of head. C/D/I. PICC DESIREE infusing with no complications. Full lift to heave 2 Assist pivot. Accuchecks ACHS with SSI. Coverage given this afternoon. Family at bedside. Pleasant and cooperative with cares. Follow up:
--- NOTE | 2017-01-13 04:59 | NUR ---
A&O. PERRLA. Left sided weakness. PT/OT/ST. Heavy 2-3 assist or full lift. Single lumen PICC DESIREE. NS @ 75. Intermittant antibiotics. Bliss. Mepelex dressing to head. GIRP at discharge.
--- NOTE | 2017-01-13 14:07 | NUR ---
Significant Event: A/O X3. Drowsy at times. Follows commands. L) side upper and lower extremities have minimal to no movement this shift. Right side moves spontaneously and to command. VSS. Edema to left hand. Edema glove in place. Afebrile. Room air with sats in the mid 90s. LS clear and diminished. Bliss in place draining adequate urine. BS active X4. Passing gas. Gas-X given this shift for gas pains. No Bm this shift. Up to commode X3 this shift with no results. Dr Velazquez changed dressing to top of head. PICC to DESIREE infusing with no complications. Full lift. Did stand with therapy. Accuchecks ACHS with SSI. Poor appetite. Denies pain. Family at bedside. Pleasant and cooperative with cares Follow up:
--- NOTE | 2017-01-14 04:06 | NUR ---
Significant Event: UNABLE TO ASSESS ORIENTATION PATIENT DOES NOT OBEY COMMANDS. OPES EYES TO VOICE/TOUCH. NON-VERBAL DURING THIS SHIFT. SLEPT THROUGHOUT NIGHT. LEFT UPPER AND LOWER EXTREMITIES ARE REPORTED TO HAVE LITTLE TO NO MOVEMENT. EDEMA GLOVE TO LEFT HAND. ROOM AIR. KWAN TO DD. DRESSING TO RIGHT HEAD. PICC TO DESIREE AT KVO. PM LANTUS HELD DUE TO PATIENT NOT EATING DINNER. TURN Q2H. Follow up: MRI TODAY. [facility] TODAY AT 2330.
[2017-01-14 05:28] LABS: BASOPHIL % 0.5 %; EOSINOPHIL # 0.1 K/uL (0.0-0.5); EOSINOPHIL % 1.5 %; HEMOGLOBIN 11.1 g/dL (12.0-17.0); IMMATURE GRANULOCYTE # 0.2 K/uL (0.0-0.3); IMMATURE GRANULOCYTE % 2.8 %; LYMPHOCYTE # 1.3 K/uL (0.8-4.0); MCH 30.8 pg (27.0-34.0); MCHC 33.6 gm/dL (32.0-36.5); MCV 91.7 fl (83.0-98.0); MONOCYTE # 0.5 K/uL (0.0-1.0); MONOCYTE % 8.7 %; MPV 8.7 fl (9.4-12.4); NEUTROPHIL % 65.5 %; NRBC % 0 /100WBC (0-0.00); RDW-CV 15.5 % (11.9-14.6); WBC 6.1 K/uL (4.0-11.0)
[2017-01-14 05:30] LABS: PLATELET COUNT 250 K/uL (150-450)
[2017-01-14 05:31] LABS: ALBUMIN 2.4 gm/dL (3.5-5.0); ALK PHOS 89 IU/L (33-138); ALT 37 IU/L (12-78); ANION GAP 11.8 (10.0-19.0); AST 19 IU/L (10-40); BLOOD UREA NITROGEN 6 mg/dL (6-24); CALCIUM 8.5 mg/dL (8.5-10.5); CHLORIDE 108 mMol/L (96-110); CO2 27 mMol/L (22-32); CREATININE 0.5 mg/dL (0.6-1.3); ESTIMATED GFR (MDRD EQUATION) > 60; POTASSIUM 3.8 mMol/L (3.7-5.1); SODIUM 143 mMol/L (135-145); TOTAL BILIRUBIN 0.4 mg/dL (0.0-1.5); TOTAL PROTEIN 5.8 g/dL (6.0-8.4)
--- NOTE | 2017-01-14 08:33 | NUR ---
A - NUTRITION F/U. UNABLE TO FOLLOW COMMANDS THIS AM. LABS: GLU 108, BUN/ASSEMBLER ERECTOR 5/0.8, ALB 2.4. PT W/ 1-2+ EDEMA TO BLE. DIET: MECH SOFT W/ ENSURE PUDDING AT L/D. INTAKE REFUSED TO BITES AND SIPS. D - AT RISK W/ INADEQUATE ORAL INTAKE R/T POOR APPETITE AEB INTAKE RECORD. I - GOAL: ALTERNATE FEEDING ROUTE. M/E - REC PROMOTE TO RUN AT 75 ML/HR W/ 75 ML H20 EVERY 6 HRS. WILL CONT TO FOLLOW.
--- NOTE | 2017-01-14 15:16 | NUR ---
Brigid from , states that she talked with Lambert' sister and she had some questions about the possiblility of Jayant going to [facility] upon dismissal from [facility] if he wasn't able to tolerate GIRP. I let Brigid know that I would touchbase with Jayant and family and also with [facility] to see what I could figure out. I did stop by Jayant's room but he and his mom were both asleep and no other family was in the room. I gathered information off of his chart and also from the computer to fax a referral into LTACH at [facility]. I talked with Dr. Velazquez about all of this and he would be in agreement with Jayant goign to [facility] LTACH upon discharge if they would be able to accept. I called over to [facility], spoke with Dian. She states that he sounds like he would be good LTACH criteria and they also work with his [employer] insurance so she would be happy to take a look at the referral. She also tells me that she will be out visiting our facility on Saturday, so she will try to swing by and talk with Jayant and family at this time. I let her know that this was ok and I would fax her over a formal referral this afternoon. Referral was faxed and will try to update Jayant and family yet today if they are in his room when I round again this afternoon. CM to continue to follow and assist.
--- NOTE | 2017-01-14 16:43 | NUR ---
Significant Event: Oriented x3 but drowsy. Complaint of frontal headache. Follows commands but very weak on R) and flaccid on L). Full lift. VSS, afebrile, room air. Bliss. Pills whole with water. R) PICC. MRI done today.
--- NOTE | 2017-01-15 04:05 | NUR ---
Significant Event: Patient doesn't speak much. Nods appropriately to yes/no questions. Will speak more with family, slow to respond. Clear short phrases when speaking. Follows commands at times. In and out of drowsiness. Opens eyes to name. Will have eyes open spontaneously. Patient appears to ignore RN half way through assessments as he stops responding but will respond to family. Left arm flacid and rigid. Left leg slight spontaneous movement to toes at times. Dressing to left top of head, C/D/I. ACHS agressive scale. HR: tachy 110s-100s. All other VSS on room air. Max Temp 99.6 tympanic. Right PICC at TKO between ABX. Izaiah calderon MD to address removal. Follow up: possible more procedures/sx in near future.
--- NOTE | 2017-01-15 10:50 | NUR ---
Social visit with Lambert' sister in the hallway. Let her know that I had made contact with Dian at [facility] re:Jayant going to their LTACH unit for continued therapies when he is ready to leave here. Sister is in agreement with this plan. She states, "I just don't think that he will be able to tolerate 3 hours of therapy, but I also know that he won't do well in a prison either as his spirits will go down very fast. We (s/o and her) aren't against taking him home eventually, but right now he is just to much to handle." Let her know that I agreed with this and I had also talked with yesterday about LTACH at [facility] and he was fine with the plan as well to explore different options other than our GIRP options. I let Lambert' sister know that I would keep her update to what was going on and also talk with his S/O about what I was doing as well so she was in the loup with the plans too.
--- NOTE | 2017-01-15 19:26 | NUR ---
Significant Event: Alert and oriented X 3. Room air. SBP 110's and 90's. HR 102, 118 and 99. Right side moderate strength. Left side flaccid. Mechanical soft diet with thin liquids. PICC to upper right arm, flushes well with good blood return. Bliss catheter with 1650 ml out this shift. ACHS accuchecks with aggressive scale. 116, 223, and 180. 2 assist full lift. Pills crushed in applesauce or pudding. Pleasant and cooperative with cares. Follow up:
[2017-01-16 05:42] LABS: ANION GAP 9.7 (10.0-19.0); BLOOD UREA NITROGEN 6 mg/dL (6-24); CALCIUM 8.8 mg/dL (8.5-10.5); CHLORIDE 108 mMol/L (96-110); CO2 29 mMol/L (22-32); CREATININE 0.5 mg/dL (0.6-1.3); ESTIMATED GFR (MDRD EQUATION) > 60; POTASSIUM 3.7 mMol/L (3.7-5.1); SODIUM 143 mMol/L (135-145)
[2017-01-16 05:50] LABS: BASOPHIL % 0.6 %; EOSINOPHIL # 0.1 K/uL (0.0-0.5); HEMATOCRIT 34.1 % (37.0-53.0); HEMOGLOBIN 11.3 g/dL (12.0-17.0); IMMATURE GRANULOCYTE # 0.2 K/uL (0.0-0.3); IMMATURE GRANULOCYTE % 2.3 %; LYMPHOCYTE # 1.1 K/uL (0.8-4.0); LYMPHOCYTE % 16.3 %; MCH 30.8 pg (27.0-34.0); MCHC 33.1 gm/dL (32.0-36.5); MCV 92.9 fl (83.0-98.0); MONOCYTE # 0.7 K/uL (0.0-1.0); MONOCYTE % 10.3 %; MPV 8.7 fl (9.4-12.4); NEUTROPHIL # (ANC) 4.8 K/uL (1.4-9.0); NEUTROPHIL % 68.5 %; NRBC % 0.3 /100WBC (0-0.00); RBC 3.67 M/uL (4.00-6.00); RDW-CV 15.8 % (11.9-14.6)
[2017-01-16 05:51] LABS: PLATELET COUNT 327 K/uL (150-450)
--- NOTE | 2017-01-16 07:17 | NUR ---
Significant Event:Patient A/O x 3 when wanting to respond. Other times will only nod or shake his head to questions, or not respond at all. C/O headache, tylenol given for pain x 1 tab. Moves RUE spontaneously. RLE wiggles toes. LLE withdraws to pain. LUE no movement, but will open eyes and move other extremities in response to painful stimuli. SBPs have been in 120s. Lungs clear on room air. Bowel sounds active. Poor appetite. Small bm this shift. Bliss intact. Full lift. PICC to right upper extremity. Prefers to take meds whole one at a time with bolthouse shake that is in fridge. ACHS accuchecks, Aggressive sliding scale. Follow up: [facility]?
--- NOTE | 2017-01-16 12:43 | NUR ---
Social visit with Milton, his S/O and his mom who were all in his room. Talked with them about the possibility of him maybe needing to be transfered to [facility] for further surgery. S/O states that they are all still talking about it and want to talk with Dr. Velazquez when he rounds today to make the decision if he will stay here for surgery or not or go to [facility]. S/O states that it is really up to Milton at this point, but she isn't for sure what direction they are going to go. I also talked with them about the LTACH at [facility] as S/O and his mom wasn't apart of that conversation yesterday. S/O and mom would be fine with going that direction, but until they decide if they are going to transfer for surgery or stay here they don't really know what the next step will be. Let them know that this was fine and I would continue to follow and assist. All were fine with plan. CM to continue to follow.
--- NOTE | 2017-01-16 17:07 | NUR ---
Significant Event:Patient up in chair with lift. PT/OT/ST work with patient. VSS. Tylenol at 0817. Pupils 3B, R hand grasp and right side stronger than left. Left side withdraws to pain. Head incision w/ drsg CDI. Head does have swelling noted. LS clear. Bliss patent. Has two loose/soft stools. Patient to have sling on when up. VSS. NPO after breakfast. Accuchecks untreated. Family at bedside. Follow up:HARDWARE ASSEMBLER shunt placement tonight or tomorrow. No orders as of yet.
--- NOTE | 2017-01-17 04:12 | NUR ---
SIGNIFICANT EVENT: PTT ADMITTED AT 2025 FOLLOWING PLACEMENT OF ICP/VENTRIC. VENTRIC NOT OPENED THROUGHOUT SHIFT, WITHDRAWS IN ALL EXTREMITIES, PURPOSEFUL AND STRONG IN R ARM, MOVES LEGS, ONLY WITHDRAW TO L ARM. DOES NOT OPEN EYES ARE FOLLOW COMMANDS. WILL PERFORM CT THIS AM PRIOR TO EXTUBATING. FOLLOW UP:
--- NOTE | 2017-01-17 04:45 | NUR ---
Pt admitted to ICU post op ICP/ventric last night. Arrived on floor intubated with 8.0 ETT secured at 23cm at the lip. EtCO2 upon arrival was 35, B/L and equal BrSs heard. BrSs in upper lobes slightly coarse, bases are clear and dim. Suctioned small amounts of cream, thick secretions from ETT with a cough. EtCO2 has been 35-38. FiO2 weaned down to 40%, vent settings AC RR 12, Vt 600, Peep of 5. Pt lightly sedated with propofol. Will go to CT this AM, then plan to extubate depending on CT.
--- NOTE | 2017-01-17 09:36 | NUR ---
A - NUTRITTION F/U. NO NEW LABS. PT S/P ICP/VENTRIC. PT W/ 2+ EDEMA TO LUE AND 1-3+ TO BLE. INTAKE POOR PRIOR TO PROCEDURE, REFUSED TO 25%. PT IS CURRENTLY NPO ON THE VENT, EXPECT EXTUBATION TODAY. D - AT RISK W/ INADEQUATE NUTRIENT INTAKE R/T POOR APPETITE PRIOR TO VENT AND NPO ON VENT. I - GOAL: TO MEET NUTRIENT NEEDS VIA EN. M/E - REC PROMOTE VIA DOBHOFF AT 75 ML/HR W/ 75 ML FLUSHES EVERY 6 HRS. WILL F/U IN 3-5 DAYS.
[2017-01-17 18:37] LABS: ALBUMIN 2.3 gm/dL (3.5-5.0); ALK PHOS 105 IU/L (33-138); ALT 39 IU/L (12-78); ANION GAP 10.7 (10.0-19.0); AST 24 IU/L (10-40); BLOOD UREA NITROGEN 9 mg/dL (6-24); CALCIUM 8.7 mg/dL (8.5-10.5); CHLORIDE 113 mMol/L (96-110); CO2 26 mMol/L (22-32); CREATININE 1.1 mg/dL (0.6-1.3); ESTIMATED GFR (MDRD EQUATION) > 60; POTASSIUM 3.7 mMol/L (3.7-5.1); SODIUM 146 mMol/L (135-145); TOTAL BILIRUBIN 0.3 mg/dL (0.0-1.5); TOTAL PROTEIN 5.5 g/dL (6.0-8.4)
--- NOTE | 2017-01-17 18:46 | NUR ---
Significant Event: PROPOFOL OFF AT 0730, PATIENT REMAINS DROWSY T/O SHIFT, INCONSISTENT WITH COMMANDS WITH RUE, NO COMMANDS ON BLE OR LUE. VENTRIC CLOSED ALL SHIFT. OG TUBE PLACED TO LIS. HEAD CT THIS AM. PATIENT LEFT INTUBATED D/T DROWSINESS, DR VALENCIA CONSULTED FOR NEUROINTENSIVE. Follow up: EXTUBATE IN IF ABLE
[2017-01-18 06:12] LABS: BASOPHIL % 0.4 %; EOSINOPHIL # 0.1 K/uL (0.0-0.5); EOSINOPHIL % 2.3 %; HEMATOCRIT 30.5 % (37.0-53.0); IMMATURE GRANULOCYTE # 0.1 K/uL (0.0-0.3); IMMATURE GRANULOCYTE % 1.6 %; LYMPHOCYTE # 0.6 K/uL (0.8-4.0); LYMPHOCYTE % 11.2 %; MCH 31.2 pg (27.0-34.0); MCHC 32.8 gm/dL (32.0-36.5); MONOCYTE # 0.6 K/uL (0.0-1.0); MONOCYTE % 10.5 %; MPV 8.6 fl (9.4-12.4); NEUTROPHIL # (ANC) 4.2 K/uL (1.4-9.0); NRBC % 0 /100WBC (0-0.00); PLATELET COUNT 273 K/uL (150-450); RBC 3.21 M/uL (4.00-6.00); WBC 5.6 K/uL (4.0-11.0)
[2017-01-18 06:13] LABS: ANION GAP 11.3 (10.0-19.0); BLOOD UREA NITROGEN 10 mg/dL (6-24); CALCIUM 8.7 mg/dL (8.5-10.5); CHLORIDE 114 mMol/L (96-110); CO2 25 mMol/L (22-32); CREATININE 1.1 mg/dL (0.6-1.3); ESTIMATED GFR (MDRD EQUATION) > 60; MAGNESIUM 2.1 mg/dL (1.8-2.6); PHOSPHORUS 4.3 mg/dL (2.5-4.9); POTASSIUM 3.3 mMol/L (3.7-5.1)
[2017-01-18 06:14] LABS: SODIUM 147 mMol/L (135-145)
--- NOTE | 2017-01-18 07:09 | NUR ---
Significant Event: Patient drowsy, inconsistantly follows commands in RUE, RLE. Withdraws to stimulation in L) extremeties. No sedation throughout night, 1 tab norco given for pain. Pupils equal and reactive. SR, BP stable. Afebrile. CPP within acceptable range. ICP 9-15. A/C throughout night, CPAP currently. Lung sounds clear and dim. Bowel sounds active, no bm this shift. OG to LIS. Bliss intact, adequate UOP. No new or worsening skin issues. R)arm PICC intact, ns infusing. Nods appropriately to questions at times. Follow up: Wean vent.
--- NOTE | 2017-01-18 14:34 | NUR ---
CONSULT RECEIVED FOR RECS. REC PROMOTE @ 75 ML/HR W/ 75 ML WATER Q6 HRS.
--- NOTE | 2017-01-18 14:34 | NUR ---
CONSULT RECEIVED FOR RECS. REC PROMOTE @ 75 ML/HR W/ 75 ML WATER Q6 HRS.
--- NOTE | 2017-01-18 16:42 | NUR ---
P WAS IN CPA THIS AM 01/23 WHICH HE TOLERATED VERY WELL, PT WAS WEANED TO CPAP 01/18 FOR ABOUT 1 HR, WEANING PARAMETERS TO WERE DONE, PT HAD A NIF -54, AND VC 478, PT WAS EXTUBATED @ 1224 AND PLACED ON 4L NASAL CANNULA, PT IS CURRENTLY ON 2L SATS 94-98%, BREATH SOUNDS SLIGHLTY COARSE AT TIMES BUT CLEARS WITH COUGH, WILL CONTINUE TO MONITOR UNTIL FURTHER NOTICE
--- NOTE | 2017-01-18 18:46 | NUR ---
Significant Event: Patient drowsy, awakens easily with stimulation, but needs constant stimulation to stay awake. Spontaneous movement in Right UE, and consistant with command. Inconsistant spontaneous movement in RUE, BILAT LE. Dropped ventric to [id number], to keep ventric open to drain no more than 20ml CSF/hr. Patient extubated at 1224 to 4L NC, titrated down to 2L with spo2 >95%. Lung slightly course to clear. Max temp 99.0. SR to ST with HR 70s-90s. VSS stable. ICP 4-12. Active bowel sounds, no bm. Dobhoff place, to start Promote to goal of 75ml/hr with Q6hr 75ml water flush. Replaced 40meq of KCL, held vanco this am per pharmacy. accu checks Q6hr, did not treat. No PRN pain meds given. Follow up: Continue to monitor neuro checks.
[2017-01-19 04:37] LABS: ANION GAP 11.1 (10.0-19.0); BLOOD UREA NITROGEN 12 mg/dL (6-24); CALCIUM 8.6 mg/dL (8.5-10.5); CHLORIDE 114 mMol/L (96-110); CO2 26 mMol/L (22-32); CREATININE 1.2 mg/dL (0.6-1.3); ESTIMATED GFR (MDRD EQUATION) > 60; PHOSPHORUS 3.6 mg/dL (2.5-4.9); POTASSIUM 3.1 mMol/L (3.7-5.1)
[2017-01-19 04:47] LABS: SODIUM 148 mMol/L (135-145)
[2017-01-19 04:53] LABS: BASOPHIL % 0.3 %; EOSINOPHIL # 0.1 K/uL (0.0-0.5); HEMATOCRIT 31.9 % (37.0-53.0); HEMOGLOBIN 10.3 g/dL (12.0-17.0); IMMATURE GRANULOCYTE # 0.1 K/uL (0.0-0.3); IMMATURE GRANULOCYTE % 1.4 %; LYMPHOCYTE # 0.6 K/uL (0.8-4.0); LYMPHOCYTE % 9.8 %; MCH 30.5 pg (27.0-34.0); MCHC 32.3 gm/dL (32.0-36.5); MCV 94.4 fl (83.0-98.0); MONOCYTE # 0.6 K/uL (0.0-1.0); MONOCYTE % 9.6 %; MPV 8.6 fl (9.4-12.4); NEUTROPHIL # (ANC) 4.5 K/uL (1.4-9.0); NEUTROPHIL % 76.9 %; NRBC % 0 /100WBC (0-0.00); PLATELET COUNT 292 K/uL (150-450); RBC 3.38 M/uL (4.00-6.00); RDW-CV 15.5 % (11.9-14.6); WBC 5.9 K/uL (4.0-11.0)
--- NOTE | 2017-01-19 05:33 | NUR ---
Significant Event: Patient lethargic/obtunded. Opens eyes to physical stimulation. Does not speak or follow commands. Pupil equal and reactive. RUE spontaneous/ purposeful. BLEs spontaneous and withdraw. LUE withdraws only. ICP/ventric intact, open continueously unless 20ml drained in a hour. 78ml csf drained this shift, clear straw colored. ICP 4-15. No cardiac events this shift, CPP within ordered range. Weaned to 1L/NC, lung sounds clear and diminished. Bowel sounds active, BM x2 this shift. Tolerating TF well, no residual, currently at 60ml/hr goal is 75ml/hr. No skin changes. Afebrile. Bliss intact, adequate UOP. NS infusing at 100ml/hr. Follow up: Continue.
--- NOTE | 2017-01-19 12:34 | NUR ---
ST went to see Pt. Nursing reported Pt is now extubated but remains unresponsive. ST will check back at a later date.
--- NOTE | 2017-01-19 17:33 | NUR ---
Significant Event: Patient very drowsy, needs constant stimulation to stay awake. Does not follow command. Moves RUE purposefully. No movement LUE. Slight movement of Bilat LE. Inconsistent with opening eyes to pain. Ventric is at 13mh2o above the auditory canal. Ventric is to remain open at all times, drain no more than 20ml off.Ventric output of 94ml. Patient has been SR, HR 80s-90s. Lungs are clear/dim to course at times. Patient is on RA with saO2 mid 90s. Active bowel, 3 large BM. Promote running at goal 75ml/hr, with no residual. Follow up: CT in morning.
[2017-01-20 05:00] LABS: ANION GAP 10.4 (10.0-19.0); BLOOD UREA NITROGEN 15 mg/dL (6-24); CALCIUM 9.4 mg/dL (8.5-10.5); CHLORIDE 114 mMol/L (96-110); CO2 27 mMol/L (22-32); CREATININE 1.2 mg/dL (0.6-1.3); ESTIMATED GFR (MDRD EQUATION) > 60; MAGNESIUM 2.2 mg/dL (1.8-2.6); PHOSPHORUS 3.7 mg/dL (2.5-4.9); POTASSIUM 3.4 mMol/L (3.7-5.1); SODIUM 148 mMol/L (135-145)
[2017-01-20 05:08] LABS: BASOPHIL % 0.3 %; EOSINOPHIL # 0.1 K/uL (0.0-0.5); EOSINOPHIL % 2.3 %; HEMATOCRIT 31.5 % (37.0-53.0); HEMOGLOBIN 10.4 g/dL (12.0-17.0); IMMATURE GRANULOCYTE # 0.1 K/uL (0.0-0.3); IMMATURE GRANULOCYTE % 1.3 %; LYMPHOCYTE # 0.6 K/uL (0.8-4.0); LYMPHOCYTE % 9.5 %; MCH 30.8 pg (27.0-34.0); MCV 93.2 fl (83.0-98.0); MONOCYTE # 0.6 K/uL (0.0-1.0); MONOCYTE % 9.5 %; MPV 8.6 fl (9.4-12.4); NEUTROPHIL # (ANC) 4.7 K/uL (1.4-9.0); NEUTROPHIL % 77.1 %; NRBC % 0 /100WBC (0-0.00); PLATELET COUNT 285 K/uL (150-450); RBC 3.38 M/uL (4.00-6.00); RDW-CV 15.6 % (11.9-14.6); WBC 6.1 K/uL (4.0-11.0)
--- NOTE | 2017-01-20 05:28 | NUR ---
patient is lethargic/obtanded will open his eyes to voice or repositoning,occasionally will node his head,will left his rt arm high toward his face,does not follow commands,clear upper lungs sound,on room air rr=16,t5tqa=35%,tolerate t.f at 75 ml/h,no residuals no bowel movement. continue to monitor patient's hemodynamic and neuro status closely. CT head was done last night at 2100,dr weber red the results.
--- NOTE | 2017-01-20 17:29 | NUR ---
Significant Event: Patient drowsy. Arouses with sternal rub. Verbalized a few words today. Inconsistent with follow commands, stuck tongue out, thumbs up. Spontaneous and purposeful with RUE. Continue to leave ventric open, no more than 20ml of CSF out per hour. BLE spontaneous and withdraws. Pupils equal and reactive.118ml CSF drained this shift. Clear. ICP 2-12. Dr. Israel notified that CSF was not draining in ventric, he flushed tubing, Patency noticed. SR-ST, HRs 90s-low 100s. Lungs slightly course to clear and diminished. Room Air. Bowel sounds active, 1 XL BM. Tolerating TF well at goal 75ml. Order to increase flushes to 200ml Q6HRs. No residual. Bliss intact, adequate UOP. Temp of 99.1 PRN tylenol given. Follow up:
[2017-01-21 04:59] LABS: ANION GAP 10.4 (10.0-19.0); BLOOD UREA NITROGEN 15 mg/dL (6-24); CHLORIDE 115 mMol/L (96-110); CO2 28 mMol/L (22-32); CREATININE 1.2 mg/dL (0.6-1.3); ESTIMATED GFR (MDRD EQUATION) > 60; MAGNESIUM 2.2 mg/dL (1.8-2.6); POTASSIUM 3.4 mMol/L (3.7-5.1)
[2017-01-21 05:00] LABS: BASOPHIL % 0.8 %; EOSINOPHIL # 0.2 K/uL (0.0-0.5); EOSINOPHIL % 3.2 %; HEMATOCRIT 30.5 % (37.0-53.0); HEMOGLOBIN 9.9 g/dL (12.0-17.0); IMMATURE GRANULOCYTE # 0.1 K/uL (0.0-0.3); IMMATURE GRANULOCYTE % 1.1 %; LYMPHOCYTE # 0.6 K/uL (0.8-4.0); LYMPHOCYTE % 12.5 %; MCH 30.7 pg (27.0-34.0); MCHC 32.5 gm/dL (32.0-36.5); MCV 94.4 fl (83.0-98.0); MONOCYTE # 0.6 K/uL (0.0-1.0); MONOCYTE % 11.7 %; MPV 8.8 fl (9.4-12.4); NEUTROPHIL # (ANC) 3.3 K/uL (1.4-9.0); NEUTROPHIL % 70.7 %; NRBC % 0 /100WBC (0-0.00); PLATELET COUNT 280 K/uL (150-450); RBC 3.23 M/uL (4.00-6.00); RDW-CV 15.5 % (11.9-14.6); SODIUM 150 mMol/L (135-145); WBC 4.7 K/uL (4.0-11.0)
--- NOTE | 2017-01-21 05:43 | NUR ---
PATIENT IS LETHARGIC WILL OCCASIONALLY OPEMN HIS EYES WHEN TURNED OR HIS NAME CALLED,DOES NOT FOLLOW SIMPLE COMMANDS,MOVE HIS RT LEG AND RT ARM SPONTANUOUSLY,WITHDRAW TO PARTIAL NAILBED PRESSURE ON THE LT SIDE,CLEAR UPPER LUNGS SOUND DIMINISHED ON THE BASES,ON ROOM AIR,RR=18,[id number]=32%,ABD IS SOFT TOLERATE T.F ,ICP/VENTRIC CONTINUE TO DRAIN TEA COLORED C.S.F FOLLOW UP:CONTINUE TO MONITOR PATIENT'S HEMODYNAMIC AND NEURO STATUS CLOSELY.
--- NOTE | 2017-01-21 11:36 | NUR ---
A - NUT F/U. LETHARGIC. NO FOLLOWING COMMANDS. ICP/VENTRIC. 1-2+ EDEMA - (+)FLUID. WATER FLUSH INCREASED OVER WEEKEND D/T NA LEVELS. LABS: ACCUCHECK WNL-REAS, NA 150, K+ 3.4, GLU 111. MEDS: VANCO, RIFAMPIN, SSI, OXACILLIN, PEPCID, PROTONIX, BOWEL. DIET: PROMOTE @ 75 ML/HR VIA DOBHOFF W/ 200 ML WATER Q6 HRS. NO RESIDUALS. PROVIDES 1800 KCAL, 113 G PRO, 1510 ML FREE WATER. NEEDS: [id number] KCAL, 105-125 G PRO D - DIFFICULT SWALLOWING R/T NEURO STATUS AEB NOT FOLLOWING COMMANDS, NEED FOR ENTERAL NUTRITION. I - GOAL FOR CONTINUED ENTERAL NUTRITION TOLERANCE. M/E - WILL MONITOR POC, TF. F/U IN 3-4 DAYS.
[2017-01-21 15:11] LABS: ANION GAP 12.2 (10.0-19.0); POTASSIUM 3.2 mMol/L (3.7-5.1)
--- NOTE | 2017-01-21 16:31 | NUR ---
Updated Dian at [facility] to Lambert' status. Let her know I would fax an update on Saturday and they could evalute him at that time. I also updated Lambert' mom and sister to this as well. They are fine with this plan. CM to continue to follow and assist.
--- NOTE | 2017-01-21 16:57 | NUR ---
Significant Event: Patient lethargic. Inconsistent with following commands, thumbs up, stuck tongue out, mimiced. Increased alertness later in afternoon. Patient will lift RUE purposefully.BLE spontaneous and withdraws. Continue to leave ventric open, no more than 20ml CSF out per hour. Pupils equal and reactive. 74ml CSF drained this shift. ICP 2-16. SR-ST, HRs 80s-105. Lungs clear and dim thoughout. Room Air. Bowel sounds active, 1 mod BM. Tolerating TF well at goal of 75ml/hr. No residual. Lasix given x1, UOP appropriate. D/C IV fluids. PRN Tylenol given for temp of 99. Follow up:
[2017-01-22 05:14] LABS: ALBUMIN 2.3 gm/dL (3.5-5.0); CALCIUM 9.2 mg/dL (8.5-10.5); CREATININE 1.3 mg/dL (0.6-1.3); POTASSIUM 3.4 mMol/L (3.7-5.1)
[2017-01-22 05:19] LABS: ANION GAP 12.4 (10.0-19.0); TOTAL BILIRUBIN 0.4 mg/dL (0.0-1.5)
[2017-01-22 05:29] LABS: MAGNESIUM 2.2 mg/dL (1.8-2.6); PHOSPHORUS 4.5 mg/dL (2.5-4.9)
[2017-01-22 05:52] LABS: BASOPHIL % 0.6 %; EOSINOPHIL # 0.2 K/uL (0.0-0.5); HEMATOCRIT 33.3 % (37.0-53.0); HEMOGLOBIN 10.9 g/dL (12.0-17.0); IMMATURE GRANULOCYTE # 0.1 K/uL (0.0-0.3); IMMATURE GRANULOCYTE % 2.1 %; LYMPHOCYTE # 0.8 K/uL (0.8-4.0); LYMPHOCYTE % 12.2 %; MCH 31.1 pg (27.0-34.0); MCHC 32.7 gm/dL (32.0-36.5); MCV 95.1 fl (83.0-98.0); MONOCYTE # 0.7 K/uL (0.0-1.0); MONOCYTE % 11.6 %; NEUTROPHIL # (ANC) 4.5 K/uL (1.4-9.0); NEUTROPHIL % 70.5 %; NRBC % 0 /100WBC (0-0.00); PLATELET COUNT 308 K/uL (150-450); RDW-CV 15.5 % (11.9-14.6); WBC 6.3 K/uL (4.0-11.0)
--- NOTE | 2017-01-22 05:53 | NUR ---
MAX. Moves extremities x3. Does not move L) upper extremities. Withdrawls x4. Would not open eyes. Followed commands x1 with aggresive stimuli, otherwise did not follow commands. Moves spontaneously. Drain continues to be open with highest output of CSF at 12ml/hr. SR-ST, HR 90-100s. SBP 110-130s. ICP 6-12. Continues on RA. TF stopped for possible shunt today. L) hand IV D/C'd due to leaking/ infiltration. Hylenex antidote injected into infiltration site. Was not able to start additional PIV to run Mannitol. Has single lumen PICC for other IV meds. Follow up: Possible shunt placement today.
[2017-01-22 05:59] LABS: PROTIME 10.5 SECONDS (9.8-11.4); PTT 24 SECONDS (25-32)
--- NOTE | 2017-01-22 14:31 | NUR ---
Significant Event: Patient is drowsy, arouses with sternal rub, voice at times.Follows commands inconsistently in all extremitites except for left upper arm.Ventric remains open at all times, to drain 20ml CSF only/h. SR with HR 80-100. VSS. Max temp 99.0. Remains on RA with spo2>94%. Active bowel sounds,BMx1 moderate. Senokote now ordered as prn. Promote/water flushes on hold for possible OR today. Bliss patent with adequate UOP. NO prn pain medications given. Follow up:possible OR later today.
[2017-01-23 05:06] LABS: ANION GAP 12.7 (10.0-19.0); BLOOD UREA NITROGEN 17 mg/dL (6-24); CALCIUM 9.2 mg/dL (8.5-10.5); CHLORIDE 115 mMol/L (96-110); CO2 26 mMol/L (22-32); CREATININE 1.2 mg/dL (0.6-1.3); ESTIMATED GFR (MDRD EQUATION) > 60; POTASSIUM 3.7 mMol/L (3.7-5.1)
[2017-01-23 05:15] LABS: SODIUM 150 mMol/L (135-145)
--- NOTE | 2017-01-23 05:23 | NUR ---
Significant Event: Pt lethargic. Continues to be inconsistent neurologically. Arouses and responds to pain consistently. Tube feeds off at MD for operative procedure today. Follow up: Labs OR procedure today.
[2017-01-23 05:24] LABS: MAGNESIUM 2.3 mg/dL (1.8-2.6)
[2017-01-23 05:41] LABS: BASOPHIL # 0.1 K/uL (0.0-0.2); BASOPHIL % 0.8 %; EOSINOPHIL # 0.2 K/uL (0.0-0.5); EOSINOPHIL % 2.5 %; HEMATOCRIT 33.7 % (37.0-53.0); HEMOGLOBIN 10.7 g/dL (12.0-17.0); IMMATURE GRANULOCYTE # 0.2 K/uL (0.0-0.3); IMMATURE GRANULOCYTE % 2.4 %; LYMPHOCYTE # 0.9 K/uL (0.8-4.0); LYMPHOCYTE % 12.5 %; MCH 30.7 pg (27.0-34.0); MCHC 31.8 gm/dL (32.0-36.5); MCV 96.8 fl (83.0-98.0); MONOCYTE # 0.9 K/uL (0.0-1.0); MONOCYTE % 11.7 %; MPV 9.1 fl (9.4-12.4); NEUTROPHIL # (ANC) 5.3 K/uL (1.4-9.0); NEUTROPHIL % 70.1 %; NRBC % 0 /100WBC (0-0.00); PLATELET COUNT 320 K/uL (150-450); RBC 3.48 M/uL (4.00-6.00); RDW-CV 15.7 % (11.9-14.6); WBC 7.5 K/uL (4.0-11.0)
--- NOTE | 2017-01-23 17:50 | NUR ---
Significant Event: Opened eyes to sound and followed few commands through the day. Sat on edge of bed with PT/OT. Vital signs stable. To OR this afternoon for crani. Follow up: post-op orders
--- NOTE | 2017-01-24 04:28 | NUR ---
Significant Event: PATIENT TO FLOOR FROM PACU AT 1906. POST OP RIGHT CRANI ABCESS DRAINAGE. BRETT DRAIN NOT TO BE COMPRESSED WITH 40ML DRAINAGE. ICP/VENTRIC CLOSED THROUGHOUT SHIFT. ICP'S 4-10. OPENING EYES TO NOXIOUS STIMULI. SLIGHT SPONTANEOUS MOVEMENT OF RIGHT HAND NOTED. WITHDRAW X4 EXTREMITIES. GAG AND COUGH INDUCED. TEMP MAX 99.5 TITRATED TO ROOM AIR. VD PER KWAN ADEQUATE UOP. NO BM. DOBHOFF TO LEFT NARE, CLAMPED. Q6HR 200ML H20 FLUSHES. SINGLE LUMEN PICC TO RIGHT UPPER ARM. D5W AT 50ML/HR. Follow up: MONITOR NEURO STATUS
[2017-01-24 04:51] LABS: CALCIUM 8.8 mg/dL (8.5-10.5); CREATININE 1.3 mg/dL (0.6-1.3); POTASSIUM 3.8 mMol/L (3.7-5.1)
[2017-01-24 04:54] LABS: ANION GAP 10.8 (10.0-19.0)
[2017-01-24 04:56] LABS: MAGNESIUM 2.5 mg/dL (1.8-2.6); PHOSPHORUS 4.6 mg/dL (2.5-4.9)
[2017-01-24 05:03] LABS: BASOPHIL % 0.5 %; EOSINOPHIL # 0.2 K/uL (0.0-0.5); HEMATOCRIT 30.1 % (37.0-53.0); HEMOGLOBIN 9.4 g/dL (12.0-17.0); IMMATURE GRANULOCYTE # 0.2 K/uL (0.0-0.3); IMMATURE GRANULOCYTE % 2.2 %; LYMPHOCYTE # 0.9 K/uL (0.8-4.0); LYMPHOCYTE % 11.9 %; MCH 30.5 pg (27.0-34.0); MCHC 31.2 gm/dL (32.0-36.5); MCV 97.7 fl (83.0-98.0); MONOCYTE # 0.9 K/uL (0.0-1.0); MONOCYTE % 12.3 %; MPV 9.1 fl (9.4-12.4); NEUTROPHIL # (ANC) 5.4 K/uL (1.4-9.0); NEUTROPHIL % 71.1 %; NRBC % 0 /100WBC (0-0.00); PLATELET COUNT 297 K/uL (150-450); RBC 3.08 M/uL (4.00-6.00); RDW-CV 15.6 % (11.9-14.6); WBC 7.7 K/uL (4.0-11.0)
--- NOTE | 2017-01-24 08:41 | NUR ---
A - NUTRITION F/U. NA+ 150, GLU 119, BUN/APPLE PRESS OPERATOR 18/1.3. PT W/ 1-2+ UE AND 2+ BLE EDEMA. PROMOTE AT 75 ML/HR W/ 200 ML H20 FLUSHES Q 6 HRS CONTS. D5W AT 50 ML/HR. PT TOLERATES TF W/O DIFFICULTY. D - DIFFICULTY SWALLOWING R/T NEUROMUSCULAR DYSFUCTION AEB NEED FOR DOBHOFF FEEDINGS. I - GOAL: CONT TO MEET PT NEEDS VIA EN. M/E - WILL F/U IN 3-5 DAYS.
--- NOTE | 2017-01-24 17:39 | NUR ---
Significant Event: Vital signs stable. More drowsy today than yesterday. Does open eyes to sound at times. Occassionally uses right arm purposefully. Tube feeding restarted and is tolerating well. Family present most of the day. Follow up: continue
[2017-01-25 05:24] LABS: ANION GAP 12.7 (10.0-19.0); BLOOD UREA NITROGEN 17 mg/dL (6-24); CHLORIDE 114 mMol/L (96-110); CO2 26 mMol/L (22-32); CREATININE 1.2 mg/dL (0.6-1.3); ESTIMATED GFR (MDRD EQUATION) > 60; POTASSIUM 3.7 mMol/L (3.7-5.1); SODIUM 149 mMol/L (135-145)
[2017-01-25 05:28] LABS: MAGNESIUM 2.4 mg/dL (1.8-2.6); PHOSPHORUS 3.7 mg/dL (2.5-4.9)
[2017-01-25 05:30] LABS: BASOPHIL % 0.5 %; EOSINOPHIL # 0.2 K/uL (0.0-0.5); EOSINOPHIL % 2.6 %; HEMATOCRIT 29.9 % (37.0-53.0); HEMOGLOBIN 9.5 g/dL (12.0-17.0); IMMATURE GRANULOCYTE # 0.1 K/uL (0.0-0.3); IMMATURE GRANULOCYTE % 1.6 %; LYMPHOCYTE # 0.9 K/uL (0.8-4.0); LYMPHOCYTE % 12.4 %; MCH 30.7 pg (27.0-34.0); MCHC 31.8 gm/dL (32.0-36.5); MCV 96.8 fl (83.0-98.0); MONOCYTE # 0.7 K/uL (0.0-1.0); MONOCYTE % 9.5 %; MPV 9.2 fl (9.4-12.4); NEUTROPHIL # (ANC) 5.4 K/uL (1.4-9.0); NEUTROPHIL % 73.4 %; NRBC % 0 /100WBC (0-0.00); PLATELET COUNT 326 K/uL (150-450); RBC 3.09 M/uL (4.00-6.00); WBC 7.4 K/uL (4.0-11.0)
--- NOTE | 2017-01-25 06:45 | NUR ---
Significant Event: PATIENT CONTINUES TO BE LETHARGIC. ICP/VENTRIC. CLOSED. ICP'S 8-12. DOES NOT FOLLOW COMMANDS. OCCASSIONALY OPENS EYES TO NOXIOUS STIMULI. WITHDRAW X4. SLIGHT SPONTANOUES MOVEMENT NOTED OF RIGHT UPPER EXTREMITY. BRETT DRAIN TO RIGHT SIDE CRANI SITE, NOT TO BE COMPRESSED. 50ML OUT THIS SHIFT. CONTINUES ST. TEMPMAX 100.4. CPP GOAL 55-100. CONTINUES ON ROOM AIR. WEAK INDUCED COUGH. GAG INDUCED. KWAN WITH ADEQUATE UOP. BM X2. DOBHOFF TO LEFT NARE. PROMOTE TF AT 75ML/HR WITH Q6 HR WATER FLUSHES. SINGLE LUMEN PICC TO RIGHT UPPER ARM Follow up:
--- NOTE | 2017-01-25 13:52 | NUR ---
SIGNIFICANT EVENT: PATIENT LETHARGIC. OPENS EYES TO VOICE AND PAIN. PATIENT OCCASIONALLY NODS YES/NO. PATIENT ATTEMPTS TO MOUTH ANSWERS AT TIMES. L) FACIAL ASYMMETRY NOTED. PUPILS EQUAL AND REACTIVE. PATIENT INCONSISTENTLY FOLLOWS COMMANDS IN R) UPPER EXTREMITY INCLUDING WEAK HAND GARSP TO COMMANDS AND THUMBS UP. PATIENT OBSERVED SPONTANEOUSLY MOVING R) UPPER EXTREMITY. PATIENT CONSISTENTLY DOES NOT FOLLOW COMMANDS IN L) UPPER EXTREMITY, WITHDRAWS TO PAIN. PATIENT INCONSISTENTLY FOLLOWS COMMANDS TO WIGGLE TOES IN BILAT LOWER EXTREMITIES, WITHDRAWS TO PAIN, SMALL SPONTANEOUS MOVEMENTS OBSERVED. SIGNIFICANT WEAKNESS THROUGHOUT, EQUAL STRENGTH. ICP VENTRIC INTACT. CLOSED AT ALL TIMES. ICP 4-14. NO DRAINAGE AROUND SITE. PATIENT HAS BEEN IN SINUS RHYTHM, TACHY INTO 110S AT TIMES. PULSES PALPABLE THROUGHOUT. BILAT PNEUMATICS OFF R/T BILAT DVT'S, EXTREMITIES ELEVATED. EDEMA PRESENT THROUGHOUT. MAX TEMP SO FAR 99.4. BP STABLE, SBP 90-130, MAP>65. CPP 50-100. PATIENT IS ON 1L OF OXYGEN PER NASAL CANNULA, SATS 90-96%. SPONT/INDUCED COUGH. SMALL PRODUCTION. INDUCED GAG REFLEX. BOWEL SOUNDS ACTIVE, 2 LOOSE BM. ADEQUATE URINE OUTPUT PER KWAN, INTACT WITH NO COMPLICATIONS. DOBHOFF AT 64CM, 75ML/HR PROMOTE, NO RESIDUALS. NO NEW SKIN ISSUES NOTED. REPOSITIONED EVERY 2 HOURS. R) PICC SINGLE LUMEN, FLUSHED WELL, GOOD BLOOD RETURN. FOLLOW UP: PATIENT TO BE EVALUATED FOR IVC FILTER PLACEMEMT. MONITOR NEURO STATUS
--- NOTE | 2017-01-25 17:23 | NUR ---
IN ADDITTION TO SHIFT SUMMARY PREVIOUSLY DOCUMENTED. PATIENT DOWN TO CUSTOMER ASSISTANT FOR R) INFERIOR VENA CAVA FILTER PLACEMENT. NO COMPLICATIONS. NO HEMATOMAS AROUND SITE, NO BLEEDING, NO OOZING. DRESSING DRY, CLEAN, AND INTACT. ST OF HEAD COMPLETED, DR GAONA LOOKED AT RESULTS WITH FAMILY
[2017-01-26 05:08] LABS: ALBUMIN 2.1 gm/dL (3.5-5.0); ANION GAP 10.7 (10.0-19.0); BLOOD UREA NITROGEN 17 mg/dL (6-24); CHLORIDE 111 mMol/L (96-110); CO2 29 mMol/L (22-32); CREATININE 1.1 mg/dL (0.6-1.3); ESTIMATED GFR (MDRD EQUATION) > 60; PHOSPHORUS 3.5 mg/dL (2.5-4.9); POTASSIUM 3.7 mMol/L (3.7-5.1)
[2017-01-26 05:10] LABS: BASOPHIL # 0.1 K/uL (0.0-0.2); BASOPHIL % 0.8 %; EOSINOPHIL # 0.2 K/uL (0.0-0.5); EOSINOPHIL % 2.8 %; HEMATOCRIT 28.4 % (37.0-53.0); HEMOGLOBIN 9.2 g/dL (12.0-17.0); IMMATURE GRANULOCYTE # 0.3 K/uL (0.0-0.3); IMMATURE GRANULOCYTE % 4.1 %; LYMPHOCYTE # 0.7 K/uL (0.8-4.0); LYMPHOCYTE % 9.7 %; MCH 31.1 pg (27.0-34.0); MCHC 32.4 gm/dL (32.0-36.5); MCV 95.9 fl (83.0-98.0); MONOCYTE # 0.8 K/uL (0.0-1.0); MONOCYTE % 10.6 %; MPV 9.2 fl (9.4-12.4); NEUTROPHIL # (ANC) 5.3 K/uL (1.4-9.0); NRBC % 0 /100WBC (0-0.00); PLATELET COUNT 327 K/uL (150-450); RBC 2.96 M/uL (4.00-6.00); RDW-CV 14.9 % (11.9-14.6); SODIUM 147 mMol/L (135-145); WBC 7.4 K/uL (4.0-11.0)
--- NOTE | 2017-01-26 05:40 | NUR ---
Significant Event: OPENS EYES TO SOUND. SPONTANEOUS MOVEMENT OF RIGHT UPPER EXTREMITY. WITHDRAW X4. GRIMACE TO NOXIOUS STIM. ICP/VENTRIC, CLOSED THROUGHOUT SHIFT. ICP'S 7-14. BRETT DRAIN TO RIGHT CRANI SITE, NOT COMPRESSED. 15ML SEROSANG DRAINAGE. HR'S 90-110'S. TEMP MAX 99.5. CPP GOAL 55-100. WEANED TO ROOM AIR. WEAK COUGH. KWAN WITH GOOD UOP. DOBHOFF TO LEFT NARE, 64CM WITH PROMOTE TF AT 75ML/HR, Q6HR WATER FLUSH. NO BM THIS SHIFT. SINGLE LUMEN PICC TO RIGHT UPPER ARM FOR ANTIBIOTICS. Follow up:
[2017-01-26 15:39] LABS: ANION GAP 13.8 (10.0-19.0); POTASSIUM 3.8 mMol/L (3.7-5.1)
--- NOTE | 2017-01-26 16:54 | NUR ---
Significant Event: PATIENT REMAINS UNABLE TO FOLLOW COMMAND, WITHDRAW X4, PERRLA, Q1H NEURO CHECKS. OPENS EYES TO SOUND. NONVERBAL, LEONCIO ORIENTATION. ICP VENTRIC CLOSED THIS SHIFT, ICP'S WNL. R) CRANI INCISION WITH SUTURES INTACT, BRETT DRAIN WITH NON COMPRESSED BULB DRAINED 20CC SANG DRNG. T MAX OF 99.9, TYLENOL GIVEN.
[2017-01-27 03:18] LABS: ANION GAP 10.9 (10.0-19.0); BLOOD UREA NITROGEN 23 mg/dL (6-24); CALCIUM 9.1 mg/dL (8.5-10.5); CHLORIDE 106 mMol/L (96-110); CO2 30 mMol/L (22-32); CREATININE 1.2 mg/dL (0.6-1.3); ESTIMATED GFR (MDRD EQUATION) > 60; MAGNESIUM 2.3 mg/dL (1.8-2.6); PHOSPHORUS 3.9 mg/dL (2.5-4.9); POTASSIUM 3.9 mMol/L (3.7-5.1); SODIUM 143 mMol/L (135-145)
[2017-01-27 03:22] LABS: BASOPHIL # 0.1 K/uL (0.0-0.2); BASOPHIL % 0.6 %; EOSINOPHIL # 0.3 K/uL (0.0-0.5); HEMATOCRIT 28.9 % (37.0-53.0); HEMOGLOBIN 9.4 g/dL (12.0-17.0); IMMATURE GRANULOCYTE # 0.4 K/uL (0.0-0.3); IMMATURE GRANULOCYTE % 4.5 %; LYMPHOCYTE % 11.6 %; MCH 30.9 pg (27.0-34.0); MCHC 32.5 gm/dL (32.0-36.5); MCV 95.1 fl (83.0-98.0); MONOCYTE % 11.7 %; MPV 9.4 fl (9.4-12.4); NEUTROPHIL # (ANC) 5.8 K/uL (1.4-9.0); NEUTROPHIL % 68.6 %; NRBC % 0 /100WBC (0-0.00); PLATELET COUNT 339 K/uL (150-450); RBC 3.04 M/uL (4.00-6.00); RDW-CV 14.7 % (11.9-14.6); WBC 8.5 K/uL (4.0-11.0)
--- NOTE | 2017-01-27 05:17 | NUR ---
pt drowsy but squeezes right hand, withdraws other extremities. Verbalized a little last night, stating, "he would like to go outside" . Ventric closed all night. up to chair this am. continues on Vancomycin and oxicillin.
[2017-01-28 05:35] LABS: BASOPHIL # 0.1 K/uL (0.0-0.2); BASOPHIL % 0.8 %; EOSINOPHIL # 0.3 K/uL (0.0-0.5); EOSINOPHIL % 2.6 %; HEMATOCRIT 30.8 % (37.0-53.0); IMMATURE GRANULOCYTE # 0.4 K/uL (0.0-0.3); IMMATURE GRANULOCYTE % 3.8 %; LYMPHOCYTE # 1.1 K/uL (0.8-4.0); LYMPHOCYTE % 9.5 %; MCH 30.5 pg (27.0-34.0); MCHC 32.5 gm/dL (32.0-36.5); MCV 93.9 fl (83.0-98.0); MONOCYTE # 1.3 K/uL (0.0-1.0); MONOCYTE % 11.4 %; MPV 9.4 fl (9.4-12.4); NEUTROPHIL % 71.9 %; NRBC % 0 /100WBC (0-0.00); PLATELET COUNT 385 K/uL (150-450); RBC 3.28 M/uL (4.00-6.00); RDW-CV 14.6 % (11.9-14.6); WBC 11.2 K/uL (4.0-11.0)
[2017-01-28 05:50] LABS: ANION GAP 13.7 (10.0-19.0); CALCIUM 8.8 mg/dL (8.5-10.5); CREATININE 1.3 mg/dL (0.6-1.3); MAGNESIUM 2.4 mg/dL (1.8-2.6); POTASSIUM 4.7 mMol/L (3.7-5.1)
--- NOTE | 2017-01-28 07:09 | NUR ---
PT NEURO EXAM CONSISTENT, PURPOSEFUL/OBEYS COMMANDS IN RUE, WITHDRAWS IN LUE/LLE, OCCASIONAL SPONTANEOUS MOVEMENT OF RLE. NON-VERBAL FOR THIS RN. ICP 2-14 THIS SHIFT. TACHYCARDIC, TMAX 100.0. REMAINS ON RA. FREQUENT INCONTINENT LARGE VOIDS. BM X2. PLAN TO REMOVE ICP/VENTRIC TODAY. RODGER LOWERN
--- NOTE | 2017-01-28 16:08 | NUR ---
Significant Event: Patient is inconsistent with commands, verbalized single words on two assessments. Inconsistent with following commands. Neuro assessments q4h. BRETT drain intact, drained 15ml. Remains on RA with spo2>94%. Lungs auscultated clear/diminished throughout. ST with HR 100-120.SBP 9-135, MAP 70-90's. Max temp 99.2. Protmote continues at 80ml/h via dobhoff, no residuals. Active bowel sounds, No BM. Incontinent urine x5 moderate. No PRN medications given. Follow up:Dr. Velazquez to discontinue drains.
--- NOTE | 2017-01-29 04:50 | NUR ---
Significant Event: Patient drowsy, opens eyes to voice, sometimes require more stimulation. Nods occasionally to questions, no words/sounds spoken. No commands followed. Withdraws in all extremeties. ST, BP stable. ICP/Ventric, BRETT drain pulled by Dr. Velazquez this shift, now covered with gauze and tape with no noticable drainage. Continues on room air. Bowel sounds active, no bm this shift. Tolerating TF well, no residuals. No new skin issues. IGOR sharma restraint applied this shift. Tmax 99.9, 98.8 on last check with fan placed on patient. Follow up: Continue
[2017-01-29 05:02] LABS: ANION GAP 12.2 (10.0-19.0); BLOOD UREA NITROGEN 25 mg/dL (6-24); CHLORIDE 107 mMol/L (96-110); CO2 29 mMol/L (22-32); CREATININE 1.2 mg/dL (0.6-1.3); ESTIMATED GFR (MDRD EQUATION) > 60; MAGNESIUM 2.5 mg/dL (1.8-2.6); PHOSPHORUS 3.5 mg/dL (2.5-4.9); POTASSIUM 4.2 mMol/L (3.7-5.1); SODIUM 144 mMol/L (135-145)
[2017-01-29 05:20] LABS: BASOPHIL # 0.1 K/uL (0.0-0.2); BASOPHIL % 0.6 %; EOSINOPHIL # 0.3 K/uL (0.0-0.5); EOSINOPHIL % 2.6 %; IMMATURE GRANULOCYTE # 0.5 K/uL (0.0-0.3); IMMATURE GRANULOCYTE % 3.8 %; LYMPHOCYTE # 1.1 K/uL (0.8-4.0); LYMPHOCYTE % 8.6 %; MCH 30.6 pg (27.0-34.0); MCHC 32.1 gm/dL (32.0-36.5); MCV 95.2 fl (83.0-98.0); MONOCYTE # 1.4 K/uL (0.0-1.0); MONOCYTE % 11.1 %; MPV 9.4 fl (9.4-12.4); NEUTROPHIL # (ANC) 9.2 K/uL (1.4-9.0); NEUTROPHIL % 73.3 %; NRBC % 0.2 /100WBC (0-0.00); PLATELET COUNT 387 K/uL (150-450); RBC 2.94 M/uL (4.00-6.00); RDW-CV 14.7 % (11.9-14.6); WBC 12.6 K/uL (4.0-11.0)
--- NOTE | 2017-01-29 09:39 | NUR ---
A - ON RA. ICP/VENTRIC IN PLACE. GLU 203, BUN/MEDICAL CHIEF TECHNICIAN 25/1.2, WBC 12.6. PT W/ 1-2+ EDEMA T/O. PROMOTE AT 75 ML/HR INFUSING W/O DIFFICULTY. FLUSHES 200 ML H20 EVERY 6 HRS. D - AT RISK W/ DIFFICULTY SWALLOWING R/T NEUROMUSCULAR DYSFUNCTION AEB NEED FOR TF. I - GOAL: CONT TO MEET NEEDS VIA EN. M/E - CONT CURRENT FEEDING. F/U IN 2-4 DAYS.
--- NOTE | 2017-01-29 13:24 | NUR ---
Social visit with Lambert' family in his room this morning including his mom and his sister and her daughter. I let them know that I was going to fax an update to Dian at [facility] to make sure that they were still going to be able to accept when Jayant was ready for that. Family was all in agreement with this plan. I also let them know that according to charting by Dr. Velazquez, it seemed to me that he might be ready to dismiss to [facility] later this week if he was stable to do so at that time. They were also fine with this plan. No other questions, needs or concerns. I faxed an update to Dian and also called her as well. She was going to review his information and then get back to me on what they were thinking. No other questions, needs or concerns. Sister was going to update Lambert' S/O to all of the above and she was going to call me with any questions that she might have. CM to continue to follow and assist.
--- NOTE | 2017-01-29 17:34 | NUR ---
Significant Event: Patient continues to be drowsy, opens eyes to voice. No commands followed, withdraws x4, moves RUE spontaneously. ST with HRs 100s-120s. BP stable. Afibrile. ICP/Ventric site cover with gauze and tape, no drainage noted. Room air, SAO2 mid to upper 90s. Rash on groin, hips, low back; removed brief, has improved. Promote continues at 75ml/hr per dobhoff, minimal residuals. Active bowel sounds, 1 small Loose BM. Incontinent urine x3. Follow up:Continue.
--- NOTE | 2017-01-30 04:37 | NUR ---
Significant Event: No neuro changes from previous night. Continues to nod to questions occasionally, but does not follow commands, drowsy. ST, BP stable. On room air. Bowel sounds active, tolerating TF well, no residual. Incontinent of urine x3 very large amounts. No new or worsening skin issues. Tmax 99.9, 98.1 on last assessment. Follow up: Status change/transfer?
[2017-01-30 04:42] LABS: ANION GAP 12.6 (10.0-19.0); BLOOD UREA NITROGEN 27 mg/dL (6-24); CALCIUM 8.9 mg/dL (8.5-10.5); CHLORIDE 106 mMol/L (96-110); CO2 29 mMol/L (22-32); CREATININE 1.2 mg/dL (0.6-1.3); ESTIMATED GFR (MDRD EQUATION) > 60; MAGNESIUM 2.4 mg/dL (1.8-2.6); POTASSIUM 3.6 mMol/L (3.7-5.1); SODIUM 144 mMol/L (135-145)
[2017-01-30 05:03] LABS: BASOPHIL % 0.4 %; EOSINOPHIL # 0.4 K/uL (0.0-0.5); EOSINOPHIL % 3.1 %; HEMATOCRIT 24.9 % (37.0-53.0); IMMATURE GRANULOCYTE # 0.4 K/uL (0.0-0.3); IMMATURE GRANULOCYTE % 3.2 %; LYMPHOCYTE # 0.9 K/uL (0.8-4.0); LYMPHOCYTE % 8.1 %; MCH 30.6 pg (27.0-34.0); MCHC 31.7 gm/dL (32.0-36.5); MCV 96.5 fl (83.0-98.0); MONOCYTE # 1.3 K/uL (0.0-1.0); MPV 9.7 fl (9.4-12.4); NEUTROPHIL # (ANC) 8.1 K/uL (1.4-9.0); NEUTROPHIL % 73.2 %; NRBC % 0.3 /100WBC (0-0.00); PLATELET COUNT 384 K/uL (150-450); RBC 2.58 M/uL (4.00-6.00); RDW-CV 14.5 % (11.9-14.6); WBC 11.1 K/uL (4.0-11.0)
[2017-01-30 05:15] LABS: HEMOGLOBIN 7.9 g/dL (12.0-17.0)
--- NOTE | 2017-01-30 13:56 | NUR ---
Significant Event: TOOK OVER PT CARES FROM [id number]. PT HAS BEEN DROWSY THROUGHOUT THE SHIFT. AWAKENS EASILY TO VERBAL/TACTILE STIMULI. PERRLA; PT DOES NOT LIKE PUPILS BEING CHECKED AND RESISTS. FOLLOWS COMMANDS INCONSISTENTLY. R)UPPER EXTREMITY AND LOWER EXTREMITIES MOVES SPONTANEOUSLY; WITHDRAWS X4. L)UPPER AND LOWER EXTREMITY ARE WEAK. MINIMAL WORDS; DOES NOD AT TIMES, BUT INCONSISTENLY. TACHYCARDIA WITH RATES IN THE LOW 100'S-115'S. GENERALIZED EDEMA. ROOM AIR; OTHER VSS. DOBHOFF TO L)NARE INTACT; PROMOTE TUBE FEEDING RUNNING AT 75 ML/HR, WHICH IS GOAL RATE. NO RESIDUALS NOTED. 200 ML WATER FLUSHES Q8H. DRESSINGS TO HEAD ARE INTACT. SINGLE LUMEN PICC LINE TO R)ARM INTACT; INTERMITTENT ANTIBIOTICS. 2-ASSIST/FULL LIFT. R)MITTEN RESTRAINT INTACT DUE TO PULLING AT LINES/TUBES. NO S/S PAIN NOTED. ORDERS TO TRANSFER TO [facility] PER MD'S. REPORT WAS GIVEN TO DERRICK REYES RN.
--- NOTE | 2017-01-30 14:58 | NUR ---
Talked with Dr. Velazquez this AM re:timeline for Milton to get to [facility] if insurance would approve. He tells me he thinks if they would approve him to go that we could send him as soon as Abraham if he was still doing good. I then called Dian at [facility], she tells me that she sent in clinical to [facility] insurance today to see if we could get him there as soon as Saturday if they were in agreement to this. She has not heard anything at this point, but states she will update me as soon as she does. CM to continue to follow and assist.
--- NOTE | 2017-01-30 20:00 | NUR ---
Significant Event: Patient is drowsy, is arousable when touched. Does not follow commands. BP 121/72, HR 102, temp 99.5, O2 sat 96 on room air. Edema to Left leg and hand +2. Dressing to ICP/ventric site, gauze and tape clean dry and intact. Tube feeding at 75 ml/hr dobhoff, 200 ml flush every 8 hours. Bowel sounds hyperactive. Incontinent of urine. Family at bedside. Follow up:
--- NOTE | 2017-01-31 02:26 | NUR ---
Significant Event: Drowsy but easily arousable. awakes to verbal/tactile stimuli. Resisted getting pupils checked. All four extremities withdraw to pain. Did not move any on command. Right upper and lower and left lower extremities move spontaneously. minimal words. nods appropritately. tachycardic in low 100s. On 1L of O2. low grade temp 99.5-99.8. Edema 2+ to left extremities. Dobhoff to left nare intact. Tube feeding at 75ml/hr with q8 hour 200ml flushes. no residuals. Dressing to head c/d/i. Single lummen PICC to right upper arm running intermittent antibiotics. full lift/2 assist. mitten to right hand due to trying to pull out dobhoff. Incontinent of stool and urine throughout shift. Follow up:
[2017-01-31 03:34] LABS: ANION GAP 11.9 (10.0-19.0); BLOOD UREA NITROGEN 27 mg/dL (6-24); CALCIUM 8.9 mg/dL (8.5-10.5); CHLORIDE 108 mMol/L (96-110); CO2 29 mMol/L (22-32); CREATININE 1.2 mg/dL (0.6-1.3); ESTIMATED GFR (MDRD EQUATION) > 60; MAGNESIUM 2.4 mg/dL (1.8-2.6); PHOSPHORUS 4.3 mg/dL (2.5-4.9); POTASSIUM 3.9 mMol/L (3.7-5.1); SODIUM 145 mMol/L (135-145)
[2017-01-31 04:03] LABS: BASOPHIL # 0.1 K/uL (0.0-0.2); BASOPHIL % 0.6 %; EOSINOPHIL # 0.5 K/uL (0.0-0.5); EOSINOPHIL % 4.5 %; IMMATURE GRANULOCYTE # 0.4 K/uL (0.0-0.3); IMMATURE GRANULOCYTE % 4.1 %; LYMPHOCYTE # 0.8 K/uL (0.8-4.0); LYMPHOCYTE % 8.1 %; MCH 30.4 pg (27.0-34.0); MCHC 31.6 gm/dL (32.0-36.5); MCV 96.2 fl (83.0-98.0); MONOCYTE % 10.2 %; MPV 9.7 fl (9.4-12.4); NEUTROPHIL # (ANC) 7.2 K/uL (1.4-9.0); NEUTROPHIL % 72.5 %; NRBC % 0.2 /100WBC (0-0.00); PLATELET COUNT 398 K/uL (150-450); RDW-CV 14.4 % (11.9-14.6)
[2017-01-31 04:07] LABS: HEMOGLOBIN 7.9 g/dL (12.0-17.0)
--- NOTE | 2017-01-31 11:43 | NUR ---
A - NUTRITION F/U. DROWSY. ON RA. GLU 161, BUN/PIN DRAFTER 27/1.2. 1-2+ BUE EDEMA AND 1+ BLE EDEMA. PROMOTE CONTS AT 75 ML/HR VIA DOBHOFF W/O DIFFICULTY. FLUSHES 200 ML H20 EVERY 6 HRS CONT. ? IF PT WILL NEED PEG. D - DIFFICULTY SWALLOWING R/T WEAKNESS AEB NEED FOR ENTERAL SUPPORT. I - GOAL: CONT TO MEET NEEDS W/ EN. M/E - CONT CURRENT FEEDING. F/U IN 6-8 DAYS.
--- NOTE | 2017-01-31 13:38 | NUR ---
Call to Dian at [facility] to check on status of Jayant coming to them for [facility]. She tells me that she has ran it through his insurance and they will approve for Jayant to come to them. I let her know that I would talk with Dr. Velazquez and Dr. Dennis to make sure that they were still fine with this plan and try to make transfer happen on Thursday 02/01. Dian was fine with this. I called Dr. Velazquez, he was in surgery, he tells me that he will be up later to look at him but from his standpoint he can go to [facility] tomorrow. I also confirmed with Dr. Dennis that he was in agreement to [facility] tomorrow as well. I talked with Lambert' S/O, mom and his sister about transfering to [facility] tomorrow, they are also in agreement with the plan to go to [facility] on Saturday. Phoned down to EMS, talked with Jaky, set up a non emergent ambulance transfer up for 1000. Packet started, orders printed and no ID Screen is needed, ambulance cert form also on the chart. I left a fax cover letter on the his chart as well. Dr. Lora will accept, #[phone] will need to be called before Jayant goes. RN to RN #[phone] will also needs to be called in before he goes. All the above numbers are on the front of the chart as well. Faxed Dian an update from the past few days on Jayant and also updated her to us planning on sending him at 1000 via ambulance tomorrow. She was in agreement with this plan. CM to continue to follow and assist.
--- NOTE | 2017-01-31 18:53 | NUR ---
Significant Event:Pt arouses easily, denies pain. Follows some commands, PEERL at 3mm. R arm/leg move spontaneously, not consistently to command. L arm/leg movement are inconsistent except to pain. Dangles at bedside, and stood with lift and PT. Tolerated fair. Edema +2 to L arm/leg, +1 to R. Dobhoff tube to L nare, TF at 75ml/hr, with 200ml water flushes. Red rash noted to chest and thighs. PICC line to RUE, flushes WNL. Sutures/niraj noted to top of head incision. Island barrier dsg to posterior part of top of head, no drainage noted. Pt tx with total lift, to chair, and bed. MRI with/without contrast today. BM 01/31/17. Follow up:RILEY MARSHALL at 1000 02/01/17
--- NOTE | 2017-02-01 02:11 | NUR ---
Significant Event: PATIENT HAS BEEN DROWSY THROUGHOUT SHIFT-DOES REPSOND TO STIMULI AND WITHDRAWALS. OCCASSIONALLY NODS WHEN ASKED QUESTIONS. PERRLA. ST- LOW 100'S. LEFT PULSES ARE THREADY- 2+ EDEMA TO THE LEFT EXTREMITIES-OTHERWISE GENERALIZED. BILAT FOOT DROP BOOTS. ROOM AIR- CLEAR TO C/D IN BASES. PROMOTE TF AT 75 ML/HR WITH 200 ML FLUSHES. DOBHOFF TO LEFT NARE-SECURING DEVICE CHANGED AND TEGADERM. INCONT OF B/B. 2A FULL LIFT. LOW GRADE TEMP- 99'S. SINGLE LUMEN PICC IN RIGHT UPPER ARM-SL'D WHEN NOT RUNNING ANTIBIOTICS. SHAVED FACE. Follow up:PATIENT TO D/C TO [facility] ON 02/01 FOR [facility].
--- NOTE | 2017-02-01 10:08 | NUR ---
alert, drowsy at times, follows some commands, L)side withdraws to painful stimuli, R)mitten restrain, L)dobhoff with Osmolite tube feeding 75ml/hr, 200ml H2O flush q6hr, oral care provided, generalized edema, edema glove to L)hand, drsg D/I to head and multiple suture lines [employer], D/I to head, bilateral foot drop boots on, red rash to chest & LLE, R)PICC patent. full lift.
--- NOTE | 2017-02-01 14:08 | NUR ---
I spoke with Dian at 0930 and faxed her orders. She stated they are ready for pt will need md to md. I then spoke with Dr Burgess because he is primary and he did call Dr Lora and there will be no problem. I updated nursing and they are to call report.
== END 2017-02-01 10:24 | DRG 853 ==
LOC: GSDC 19:00 → GNTU 19:00 → GSDC 22:28 → GICU 01-16 20:16 → GNTU 01-30 14:16
PROVIDERS: Anesthesiology; Anesthesiology Critical Care Medicine; Family Medicine; Hospitalist; Internal Medicine Hematology & Oncology; Nurse Practitioner Family; Physician Assistant; ADMIT Neurological Surgery
DX: A41.1 Sepsis due to other specified staphylococcus (principal); G06.0 Intracranial abscess and granuloma; G93.6 Cerebral edema; J96.00 Acute respiratory failure, unspecified whether with hypoxia or hypercapnia; G93.40 Encephalopathy, unspecified; C71.1 Malignant neoplasm of frontal lobe; E87.0 Hyperosmolality and hypernatremia; I82.413 Acute embolism and thrombosis of femoral vein, bilateral; G81.94 Hemiplegia, unspecified affecting left nondominant side; I82.433 Acute embolism and thrombosis of popliteal vein, bilateral; G91.9 Hydrocephalus, unspecified; E09.65 Drug or chemical induced diabetes mellitus with hyperglycemia; B95.7 Other staphylococcus as the cause of diseases classified elsewhere; I10 Essential (primary) hypertension; G93.0 Cerebral cysts; T38.0X5A Adverse effect of glucocorticoids and synthetic analogues, initial encounter; E66.9 Obesity, unspecified; Z68.35 Body mass index [BMI] 35.0-35.9, adult; M81.0 Age-related osteoporosis without current pathological fracture; N40.0 Benign prostatic hyperplasia without lower urinary tract symptoms; K21.9 Gastro-esophageal reflux disease without esophagitis; Z92.21 Personal history of antineoplastic chemotherapy; Z92.3 Personal history of irradiation; Z79.2 Long term (current) use of antibiotics; Z79.4 Long term (current) use of insulin; Z78.1 Physical restraint status; K59.00 Constipation, unspecified; E87.6 Hypokalemia; D64.9 Anemia, unspecified; L53.9 Erythematous condition, unspecified; B95.61 Methicillin susceptible Staphylococcus aureus infection as the cause of diseases classified elsewhere; E87.70 Fluid overload, unspecified
CPT/HCPCS: A9577; C1880; C9113; J1100; J1650; J1885; J1940; J1953; J2270; J2405; J2700; J2704; J3370; J3473; J3480; J7030; J7040; J7050; J7060

== ENCOUNTER → 2017-02-01 | Outpatient (CLI) | payer OTHER | END | disposition disaster alternative care site (69) | LOC: GAMB 10:29 | DX: R41.82 Altered mental status, unspecified (principal); G06.0 Intracranial abscess and granuloma; R53.1 Weakness; Z92.21 Personal history of antineoplastic chemotherapy; Z92.3 Personal history of irradiation; Z79.2 Long term (current) use of antibiotics; Z79.52 Long term (current) use of systemic steroids; Z79.4 Long term (current) use of insulin; Z79.899 Other long term (current) drug therapy; Z86.03 Personal history of neoplasm of uncertain behavior | CPT/HCPCS: A0422; A0425; A0428 ==